=== PATIENT | female | born 1960 | race Caucasian/White ===

== ENCOUNTER 2021-09-17 08:33 | Inpatient (IN) | payer MEDICARE, MEDICAID ==
[~2021-09-17] VITALS: Ht 172.7 cm; Wt 70.7 kg
--- NOTE | 2021-09-17 09:06 | ED Abdominal Pain ---
General Chief Complaint: Abdominal/GI Problems Stated Complaint: CHEST, BACK, ABD PAIN Source of Information: Patient Exam Limitations: No Limitations (MARIAH GARICA MED STUDENT) History of Present Illness Date Seen by Provider: Sep 17, 2021 Time Seen by Provider: 08:48 Initial Comments Patient is a 61 year old white female who presents to the ED with multiple complaints consisting of chest, back and abdominal pain, sore throat, cough, fevers, and nausea/vomiting. Reports symptoms started 5 days ago with sore throat, runny nose, and cough. 2-3 days ago developed epigastric abdominal pain radiating straight through to the back and nausea/vomiting. Reports vomiting about 60 times in the last 2 days, nonbloody/nonbilious. Reports the abdominal pain is sharp and constant, worsens with movement and walking. Has been taking ibuprofen for the pain, last dose early this am. Reports black "aram" stools for a few days as well. Reports decreased oral intake last 2-3 days. Not covid vaccinated. Denies recent sick contacts. Is flu vaccinated she reports. Timing/Duration: 5-6 Days Severity/Quality: Moderate, Sharp Location: Epigastric Radiation: Back Modifying Factors: Improves With Coughing, Improves With Movement Associated Symptoms: Back Pain, Chest Pain, Fever/Chills, Fatigue, Heartburn, Nausea/Vomiting (MARIAH GARCIA MED STUDENT) Initial Comments 60yo with 5 days of multiple somatic complaints, most recently 2 days of persistent n/v (up to 60x). Black stool the last 2 days. Taking ibuprofen 800mg up to 3 times a day. States she hasnt taken any of her meds in the last 2 days due to n/v. Subjective f/c. no urinary complaints (but decreased amounts). No covid vaccination. slight sore throat (? due to vomiting). SLight cough (former 4ppd smoker) non productive. admits to a pint of whiskey a day 2-3 days a month. Medical history COPD, anxiety, depression, GERD; h/o ulcer. (SHANTANU BLUNT MD) Allergies and Home Medications Allergies Coded Allergies: Sulfa (Sulfonamide Antibiotics) (Verified Allergy, Unknown, 09/17/21) codeine (Verified Allergy, Unknown, 09/17/21) prednisone (Verified Allergy, Unknown, 09/17/21) tramadol (Verified Allergy, Unknown, 09/17/21) Patient Home Medication List Home Medication List Reviewed: Yes (SHANTANU BLUNT MD) Albuterol Sulfate (Proair Hfa) 1 Puff Puff, 2 PUFF IH Q4H PRN for SHORTNESS OF BREATH, (Reported) Entered as Reported by: RACHAEL SHARMA on 09/17/211538 Last Action: Reviewed Atorvastatin Calcium (Atorvastatin Calcium) 20 Mg Tablet, 20 MG PO DAILY, (Reported) Entered as Reported by: RACHAEL SHARMA on 09/17/211537 Last Action: Reviewed Azithromycin (Azithromycin) 250 Mg Tablet, 250 MG PO DAILY, (Reported) Entered as Reported by: RACHAEL SHARMA on 09/17/211537 Last Action: Reviewed Bismuth Subsalicylate (Pepto-Bismol) 262 Mg/15 Ml Oral.susp, 15 ML PO DAILY PRN for UPSET STOMACH, (Reported) Entered as Reported by: RACHAEL SHARMA on 09/17/211541 Last Action: Reviewed Buspirone HCl (Buspirone HCl) 10 Mg Tablet, 10 MG PO TID, (Reported) Entered as Reported by: RACHAEL SHARMA on 09/17/211537 Last Action: Reviewed Calcium Carbonate (Calcium) 500 Mg Tablet, 500 MG PO DAILY, (Reported) Entered as Reported by: RACHAEL SHARMA on 09/17/211541 Last Action: Reviewed Diphenhydramine HCl (Benadryl Allergy) 25 Mg Tablet, 25 MG PO DAILY PRN for ALLERGIES, (Reported) Entered as Reported by: RACHAEL SHARMA on 09/17/211543 Last Action: Reviewed Duloxetine HCl (Duloxetine HCl) 60 Mg Capsule.dr, 60 MG PO DAILY, (Reported) Entered as Reported by: RACHAEL SHARMA on 09/17/211537 Last Action: Reviewed Gabapentin (Neurontin) 300 Mg Capsule, 300 MG PO TID, (Reported) Entered as Reported by: RACHAEL SHARMA on 09/17/211537 Last Action: Reviewed Guaifenesin (Mucinex) 600 Mg Tab.er.12h, 600 MG PO BID PRN for CONGESTION, (Reported) Entered as Reported by: RACHAEL SHARMA on 09/17/211539 Last Action: Reviewed Ibuprofen (Ibuprofen) 800 Mg Tablet, 800 MG PO TID PRN for PAIN-MILD (1-4), (Reported) Entered as Reported by: RACHAEL SHARMA on 09/17/211537 Last Action: Reviewed Methocarbamol (Methocarbamol) 750 Mg Tablet, 1,500 MG PO BID, (Reported) Entered as Reported by: RACHAEL SHARMA on 09/17/211537 Last Action: Reviewed Multivitamin (Multi-Vitamin Daily) 1 Each Tablet, 1 EACH PO DAILY, (Reported) Entered as Reported by: RACHAEL SHARMA on 09/17/211542 Last Action: Reviewed Omeprazole (Omeprazole) 20 Mg Capsule.dr, 20 MG PO DAILY, (Reported) Entered as Reported by: RACHAEL SHARMA on 09/17/211537 Last Action: Reviewed Tiotropium Br/Olodaterol HCl (Stiolto Respimat Inhal [place]) 4 Gm Mist.inhal, 1 PUFF PO DAILY, (Reported) Entered as Reported by: RACHAEL SHARMA on 09/17/211537 Last Action: Reviewed Review of Systems Review of Systems Constitutional: chills, fever EENTM: No Blurred Vision, No Double Vision; Nose Congestion Respiratory: Cough (nonproductive) Cardiovascular: Chest Pain; Denies Edema, Denies Palpitations Gastrointestinal: Abdominal Pain, Nausea, Vomiting, Other (Black "aram" specks in stool) Genitourinary: No Symptoms Reported; Denies Burning, Denies Frequency Musculoskeletal: back pain; No joint pain, No joint swelling Skin: no symptoms reported; No change in color, No change in hair/nails Psychiatric/Neurological: Anxiety; Denies Headache, Denies Numbness, Denies Paresthesia Endocrine: No Symptoms Reported; Denies Excessive Sweating, Denies Flushing Hematologic/Lymphatic: No Symptoms Reported; Denies Easy Bleeding, Denies Easy Bruising (MARIAH GARCIA MED STUDENT) All Other Systems Reviewed Negative Unless Noted: Yes (MARIAH GARCIA STUDENT) Past Ptgiusq-Hgnlms-Fymaex Hx Patient Social History Tobacco Use?: Yes Tobacco type used: Cigarettes Smoking Status: Current Everyday Smoker Smokeless Tobacco Frequency: Never a User Use of E-Cig and/or Vaping dev: No Use of E-Cig and/or Vaping Kameron: Never a User Substance use?: No Alcohol Use?: Yes Alcohol type: Other (Whiskey) Alcohol Frequency: Several times a month Pt feels they are or have been: No (MARIAH GARCIA [employer] STUDENT) Immunizations Up To Date Tetanus Booster (TDap): Unknown Influenza Vaccine Up-to-Date: Yes; Up-to-Date First/Initial COVID19 Vaccinat: NA, Patient refusal (MARIAH GARCIA [employer] STUDENT) Seasonal Allergies Seasonal Allergies: No (MARIAH GARCIA [employer] TRAN) Past Medical History Surgeries: Yes Section Respiratory: Yes COPD Currently Using CPAP: No Currently Using BIPAP: No Cardiac: Yes High Cholesterol, Hypertension Neurological: Yes Headaches /Migraines Reproductive Disorders: No Genitourinary: No Gastrointestinal: Yes Gastroesophageal Reflux Musculoskeletal: No Endocrine: No HEENT: No Loss of Vision: Denies Hearing Impairment: Denies Cancer: No Psychosocial: Yes Anxiety, Depression Integumentary: No Blood Disorders: No Adverse Reaction/Blood Tranf: No (MARIAH GARCIA [employer] TRAN) Physical Exam Vital Signs Vital Signs - First Documented 09/17/21 08:39 Pulse 65 Resp 18 B/P (MAP) 136/86 (103) Pulse Ox 99 O2 Delivery Room Air (SHANTANU BLUNT MD) Vital Signs Capillary Refill : (MARIAH GARCIA STUDENT) Height/Weight/BMI Height: '" Weight: lbs. oz. kg; BMI Method: General Appearance: no apparent distress, other (Anxious and dishelved appearance) HEENT: PERRL/EOMI, TMs normal, pharynx normal Neck: non-tender, full range of motion, supple Respiratory: chest non-tender, no respiratory distress; No crackles, No rhonchi; wheezing (end expiratory bilaterally) Cardiovascular: normal peripheral pulses, regular rate, rhythm, no edema Peripheral Pulses: 2+ Radial Pulses (R), 2+ Radial Pulses (L) Gastrointestinal: normal bowel sounds, soft; No distended, No guarding; rebound (epigastric region), tenderness (tenderness periumbilical bilateally. More tender in epigastric region. Negative rovsings and mcburney. ) Rectal: deferred Extremities: normal range of motion, non-tender, no pedal edema Back: normal inspection, no vertebral tenderness Neurologic/Psychiatric: no motor/sensory deficits, alert, oriented x 3 Skin: normal color, warm/dry Lymphatic: no adenopathy (Head and Neck) (MARIAH GARCIA MED STUDENT) General Appearance: mild distress (retching on my exam) HEENT: other (dry mucous membranes) Neck: supple Respiratory: lungs clear, normal breath sounds, no respiratory distress Cardiovascular: regular rate, rhythm Gastrointestinal: soft, tenderness (tenderness periumbilical bilateally. More tender in epigastric region. Negative rovsings and mcburney. ) Pelvic: other (hemoccult positive on GRICEL - black stool in the vault. no external hemorrhoids) Neurologic/Psychiatric: alert, normal mood/affect, oriented x 3 Skin: normal color, warm/dry (SHANTANU BLUNT MD) Progress/Results/Core Measures Results/Orders Lab Results Laboratory Tests Test 09/17/21 09:07 09/17/21 09:50 Range/Units Influenza Type A (RT-PCR) Not Detected Not Detecte Influenza Type B (RT-PCR) Not Detected Not Detecte SARS-CoV-2 RNA (RT-PCR) Not Detected Not Detecte White Blood Count 7.0 4.3-11.0 10^3/uL Red Blood Count 3.95 3.80-5.11 10^6/uL Hemoglobin 12.9 11.5-16.0 g/dL Hematocrit 36 35-52 % Mean Corpuscular Volume 91 80-99 fL Mean Corpuscular Hemoglobin 33 25-34 pg Mean Corpuscular Hemoglobin Concent 36 32-36 g/dL Red Cell Distribution Width 13.1 10.0-14.5 % Platelet Count 186 130-400 10^3/uL Mean Platelet Volume 9.4 9.0-12.2 fL Immature Granulocyte % (Auto) 1 % Neutrophils (%) (Auto) 87 H 42-75 % Lymphocytes (%) (Auto) 5 L 12-44 % Monocytes (%) (Auto) 6 0-12 % Eosinophils (%) (Auto) 1 0-10 % Basophils (%) (Auto) 0 0-10 % Neutrophils # (Auto) 6.1 1.8-7.8 10^3/uL Lymphocytes # (Auto) 0.4 L 1.0-4.0 10^3/uL Monocytes # (Auto) 0.4 0.0-1.0 10^3/uL Eosinophils # (Auto) 0.1 0.0-0.3 10^3/uL Basophils # (Auto) 0.0 0.0-0.1 10^3/uL Immature Granulocyte # (Auto) 0.1 0.0-0.1 10^3/uL Neutrophils % (Manual) 83 % Lymphocytes % (Manual) 7 % Monocytes % (Manual) 3 % Eosinophils % (Manual) 4 % Band Neutrophils 3 % Blood Morphology Comment NORMAL Sodium Level 128 L 135-145 MMOL/L Potassium Level 2.8 L 3.6-5.0 MMOL/L Chloride Level 92 L 98-107 MMOL/L Carbon Dioxide Level 17 L 21-32 MMOL/L Anion Gap 19 H 5-14 MMOL/L Blood Urea Nitrogen 13 7-18 MG/DL Creatinine 0.67 0.60-1.30 MG/DL Estimat Glomerular Filtration Rate 101 BUN/Creatinine Ratio 19 Glucose Level 127 H 70-105 MG/DL Calcium Level 9.2 8.5-10.1 MG/DL Corrected Calcium 9.1 8.5-10.1 MG/DL Total Bilirubin 0.5 0.1-1.0 MG/DL Aspartate Amino Transf (AST/SGOT) 39 H 5-34 U/L Alanine Aminotransferase (ALT/SGPT) 35 0-55 U/L Alkaline Phosphatase 102 40-136 U/L Total Protein 7.3 6.4-8.2 GM/DL Albumin 4.1 3.2-4.5 GM/DL Lipase 1757 H 8-78 U/L Serum Alcohol < 10 <10 MG/DL (SHANTANU BLUNT MD) My Orders Orders - SHANTANU BLUNT MD Covid 19 Inhouse Test (09/17/21 08:59) Cbc With Automated Diff (09/17/21 08:59) Comprehensive Metabolic Panel (09/17/21 08:59) Ed Iv/Invasive Line Start (09/17/21 08:59) Influenza A And B By Pcr (09/17/21 08:59) Isolation Central Supply Req (09/17/21 08:59) Chest 1 View, Ap/Pa Only (09/17/21 08:59) Ns Iv 1000 Ml (Sodium Chloride 0.9%) (09/17/21 09:15) Pantoprazole Injection (Protonix Injecti (09/17/21 09:15) Ondansetron Injection (Zofran Injectio (09/17/21 09:15) Fentanyl Inj (Sublimaze Injection) (09/17/21 09:15) Lipase (09/17/21 09:14) Manual Differential (09/17/21 09:50) Us Gallbladder 32202 (09/17/21 10:53) Ns Iv 1000 Ml (Sodium Chloride 0.9%) (09/17/21 11:03) Potassium Cl 10meq/50ml Ivpb (Kcl 10 Meq (09/17/21 11:15) Fentanyl Inj (Sublimaze Injection) (09/17/21 11:30) Alcohol (09/17/21 11:33) Ct Abdomen/Pelvis W (09/17/21 11:33) Ed Admission (Communication) (09/17/21 11:34) (SHANTANU BLUNT MD) Medications Given in ED (SHANTANU BLUNT MD) Vital Signs/I&O 09/17/21 08:39 Pulse 65 Resp 18 B/P (MAP) 136/86 (103) Pulse Ox 99 O2 Delivery Room Air (SHANTANU BLUNT MD) Progress Progress Note #1: Time: 11:00 Progress Note Patient re-evaluated, still has epigastric pain, but rating it at a "2". Has had no more dry-heaving. Will give another liter of fluids and some potassium. Progress Note #2: Time: 11:36 Progress Note Discussed with Dr Alfaro - she will place que'd orders. Adding etoh and CT abd/pelvis. more pain meds. U/S RUQ shows diffusely fatty infiltrated liver with several benign appearing cysts. Diffusely dilated CBD at 0.6-0.7mm, no obvious stones. pancreatic head not well visualised. (SHANTANU BLUNT MD) Diagnostic Imaging Diagonstic Imaging: Xray Plain Films/CT/US/NM/MRI: chest Comments [facility]. [place], [place] NAME: DRISS GUTIERREZ Shaun MED REC#: [id number] PT STATUS: REG ER : 1960 PHYSICIAN: SHANTANU BLUNT MD ADMIT DATE: 09/17/21/ER Draft Date of Exam:09/17/21 CHEST 1 VIEW, AP/PA ONLY INDICATION: Chest pain with shortness of breath. FINDINGS: Portable chest shows lungs to be well aerated. There are no infiltrates. There are a few scattered calcified granuloma. The heart is not enlarged. There is no pulmonary edema or hilar adenopathy. No pneumothorax or pleural effusion. No bony abnormalities. IMPRESSION: Normal portable chest. Dictated on workstation # [id number] Dict: 09/17/21918 Trans: 09/17/21920 CV [id number] Interpreted by: KEMAR BUCK MD Electronically signed by: (SHANTANU BLUNT MD) Departure Communication (Admissions) Time/Spoke to Admitting Phy: 11:[address] Alfaro - will put in que'd orders (SHANTANU BLUNT MD) Impression Primary Impression: Acute pancreatitis Qualified Codes: K85.90 - Acute pancreatitis without necrosis or infection, unspecified Additional Impression: GI (gastrointestinal bleed) Qualified Codes: K92.1 - Melena Disposition: ADMITTED INPATIENT Condition: Stable Admissions Decision to Admit Reason: Admit from ER (General) Decision to Admit/Date: Sep 17, 2021 Time/Decision to Admit Time: 11:32 (SHANTANU BLUNT MD) Departure-Patient Inst. Referrals: NO,LOCAL PHYSICIAN (PCP/Family) Primary Care Physician Verification and Attestation of Medical Student E/M Service A medical student performed and documented this service in my presence. I reviewed and verified all information documented by the medical student and made modifications to such information, when appropriate. I personally performed the physical exam and medical decision making. Shantanu Blunt, Sep 18, 2021,11:56 (SHANTANU BLUNT MD) MARIAH GARCIA MED STUDENT Sep 17, 2021 09:06 SHANTANU BLUNT MD Sep 17, 2021 11:03
[2021-09-17] MEDS ORDERED: PANTOPRAZOLE 40 MG (PROTONIX) VIAL IV ONE (09:15)
[2021-09-17] MEDS ORDERED: NS IV 1000 ML 1,000 ML IV SCH (09:15)
[2021-09-17] MEDS ORDERED: ONDANSETRON 4 MG/2 ML (SDV) Z0FRAN IVP ONE (09:15)
[2021-09-17] MEDS ORDERED: fentaNYL INJ 100 MCG/2 ML AMP IVP ONE ×2 (09:15→11:30)
--- NOTE | 2021-09-17 09:21 | Diagnostic Imaging Report ---
INDICATION: Chest pain with shortness of breath. FINDINGS: Portable chest shows lungs to be well aerated. There are no infiltrates. There are a few scattered calcified granuloma. The heart is not enlarged. There is no pulmonary edema or hilar adenopathy. No pneumothorax or pleural effusion. No bony abnormalities. IMPRESSION: Normal portable chest. Dictated by: Dictated on workstation # [id number]
[2021-09-17 09:56] LABS: BASOPHILS % (AUTO) 0 % (0-10); EOSINOPHILS # (AUTO) 0.1 10^3/uL (0.0-0.3); EOSINOPHILS % (AUTO) 1 % (0-10); HEMATOCRIT 36 % (35-52); HEMOGLOBIN 12.9 g/dL (11.5-16.0); LYMPHOCYTES # (AUTO) 0.4 10^3/uL (1.0-4.0); LYMPHOCYTES % (AUTO) 5 % (12-44); MEAN CORPUSCULAR HEMOGLOBIN 33 pg (25-34); MEAN CORPUSCULAR HGB CONC 36 g/dL (32-36); MEAN CORPUSCULAR VOLUME 91 fL (80-99); MEAN PLATELET VOLUME 9.4 fL (9.0-12.2); MONOCYTES # (AUTO) 0.4 10^3/uL (0.0-1.0); MONOCYTES % (AUTO) 6 % (0-12); NEUTROPHILS # (AUTO) 6.1 10^3/uL (1.8-7.8); NEUTROPHILS % (AUTO) 87 % (42-75); PLATELET COUNT 186 10^3/uL (130-400)
[2021-09-17 10:07] LABS: ALBUMIN 4.1 GM/DL (3.2-4.5)
[2021-09-17 10:08] LABS: POTASSIUM 2.8 MMOL/L (3.6-5.0)
[2021-09-17 10:09] LABS: CALCIUM 9.2 MG/DL (8.5-10.1)
[2021-09-17 10:10] LABS: TOTAL PROTEIN 7.3 GM/DL (6.4-8.2)
[2021-09-17 10:12] LABS: BILIRUBIN,TOTAL 0.5 MG/DL (0.1-1.0)
[2021-09-17 10:13] LABS: CREATININE SERUM 0.67 MG/DL (0.60-1.30)
[2021-09-17 10:43] LABS: BAND NEUTROPHILS 3 %; EOSINOPHILS % (MANUAL) 4 %; LYMPHOCYTES % (MANUAL) 7 %; MONOCYTES % (MANUAL) 3 %; NEUTROPHILS % (MANUAL) 83 %; RBC MORPH NORMAL
[2021-09-17] MEDS: POTASSIUM CL 10MEQ/50ML IVPB 50 ML IV ONE ×2 (11:35→12:41)
[2021-09-17] MEDS: NS IV 1000 ML 1,000 ML IV STA ×2 (11:35→12:41)
--- NOTE | 2021-09-17 11:58 | Diagnostic Imaging Report ---
PROCEDURE: US Gallbladder. TECHNIQUE: Multiple real-time grayscale images were obtained over the right upper quadrant in various projections. INDICATION: Pancreatitis and right upper quadrant pain. Liver is normal in size 17.4 cm. Liver does show diffuse increased echogenicity consistent with hepatic steatosis. Left lobe liver cyst measures approximately 2.6 x 2.0 cm. Gallbladder is without stones or sludge. No wall thickening is identified. Extrahepatic bile duct is borderline at 7 mm. Pancreas does show some heterogeneity but no peripancreatic fluid collection is identified. Aorta is nonaneurysmal. IVC is patent. Right kidney is without evidence of calculi or hydronephrosis. There is no ascites. IMPRESSION: 1. Hepatic steatosis and hepatic cysts. 2. No evidence of cholelithiasis or acute cholecystitis. 3. Mild pancreatic heterogeneity but no peripancreatic fluid collection is seen. 4. Borderline extrahepatic bile duct measuring 7 mm. Dictated by: Dictated on workstation # [id number]
[2021-09-17] MEDS ORDERED: NS 100 ML (IVPB) BAG IV ONE (12:15)
[2021-09-17] MEDS ORDERED: HOLD METFORMIN - RECEIVED CONTRAST 20 ML VIAL IV SCH (12:15)
[2021-09-17] MEDS ORDERED: IOHEXOL 350 MG/ML 100 ML (OMNIPAQUE 350) VIAL IV ONE (12:15)
--- NOTE | 2021-09-17 12:22 | History & Physical-Hospitalist ---
History of Present Illness HPI/Chief Complaint Patient is 81-year-old female with past medical history of anxiety disorder, hyperlipidemia, alcohol abuse, tobacco abuse who presented to the emergency department due to abdominal pain. She states it started roughly 5 days ago. She has had severe nausea and vomiting as well. She has vomited 60 times over the past 5 days. She reports she has had a similar episode years ago and was told it was due to an ulcer. She does have a prescription for 800 mg ibuprofen at her bedside that was filled in July. She denies a history of pancreatitis. She does endorse a history of alcohol use. She is currently drinking 2 to 3 pints a month but was previously drinking 1/2 gallon a day. She is unsure when she cut back. Lipase was found to be 1757 in the emergency room and she was admitted for acute pancreatitis Source: patient Date Seen 09/17/21 Time Seen by a Provider: 12:17 Attending Physician PCP No,Local Physician Referring Physician Date of Admission Home Medications & Allergies Home Medications Reviewed patient Home Medication Reconciliation performed by pharmacy medication reconciliations weed science research technician and/or nursing. Patients Allergies have been reviewed. Allergies Allergies Coded Allergies Sulfa (Sulfonamide Antibiotics) (Verified Allergy, Unknown, 09/17/21) codeine (Verified Allergy, Unknown, 09/17/21) prednisone (Verified Allergy, Unknown, 09/17/21) tramadol (Verified Allergy, Unknown, 09/17/21) Past Agdvazc-Weargy-Dwwwok Hx Patient Social History Tobacco Use?: Yes Tobacco type used: Cigarettes Smoking Status: Current Everyday Smoker Smokeless Tobacco Frequency: Never a User Use of E-Cig and/or Vaping dev: No Use of E-Cig and/or Vaping Kameron: Never a User Substance use?: No Alcohol Use?: Yes Alcohol type: Other (Whiskey) Alcohol Frequency: Several times a month Pt feels they are or have been: No Immunizations Up To Date First/Initial COVID19 Vaccinat: NA, Patient refusal Seasonal Allergies Seasonal Allergies: No Current Status Advance Directives: No Primary Language: Kazakh Preferred Spoken Language: Kazakh Past Medical History Surgeries: Section COPD Currently Using CPAP: No Currently Using BIPAP: No High Cholesterol, Hypertension Headaches /Migraines Gastroesophageal Reflux, Ulcer Loss of Vision: Denies Hearing Impairment: Denies Anxiety, Depression Blood Disorders: No Adverse Reaction/Blood Tranf: No Family Medical History Reviewed Nursing Family Hx No Pertinent Family Hx Review of Systems Constitutional: No chills, No fever; malaise EENTM: no symptoms reported Respiratory: no symptoms reported Cardiovascular: no symptoms reported Gastrointestinal: see HPI Musculoskeletal: no symptoms reported Skin: no symptoms reported Psychiatric/Neurological: No Symptoms Reported Physical Exam Physical Exam Vital Signs Vital Signs - First Documented 09/17/21 08:39 Pulse 65 Resp 18 B/P (MAP) 136/86 (103) Pulse Ox 99 O2 Delivery Room Air Capillary Refill : Less Than 3 Seconds Height, Weight, BMI Height: '" Weight: lbs. oz. kg; 23.00 BMI Method: General Appearance: No Apparent Distress, Chronically ill, Thin HEENT: PERRL/EOMI, Moist Mucous Membranes Neck: Normal Inspection, Supple Respiratory: Lungs Clear, No Accessory Muscle Use, No Respiratory Distress Cardiovascular: Regular Rate, Rhythm, No JVD, No Murmur Gastrointestinal: Normal Bowel Sounds, Soft; No Guarding; Tenderness (mild, worse in the right upper and lower quadrants) Extremity: No Calf Tenderness, No Pedal Edema Neurologic/Psychiatric: Alert, Oriented x3 Results Results/Procedures Labs Laboratory Tests 09/17/21 09:50 Patient resulted labs reviewed. Imaging: Reviewed Imaging Report Imaging [facility] [place] [place] NAME: DRISS GUTIERREZ [facility] REC#: [id number] PT STATUS: REG ER : 1960 PHYSICIAN: SHANTANU MITCHELL MD ADMIT DATE: 09/17/21/ER Draft Date of Exam:09/17/21 CHEST 1 VIEW, AP/PA ONLY INDICATION: Chest pain with shortness of breath. FINDINGS: Portable chest shows lungs to be well aerated. There are no infiltrates. There are a few scattered calcified granuloma. The heart is not enlarged. There is no pulmonary edema or hilar adenopathy. No pneumothorax or pleural effusion. No bony abnormalities. IMPRESSION: Normal portable chest. Dictated on workstation # [id number] Dict: 09/17/21918 Trans: 09/17/21920 CV [id number] Interpreted by: KEMAR BUCK MD Electronically signed by: [facility] [place] [place] NAME: DRISS GUTIERREZ [facility] REC#: [id number] PT STATUS: REG ER : 1960 PHYSICIAN: SHANTANU MITCHELL MD ADMIT DATE: 09/17/21/ER Draft Date of Exam:09/17/21 US GALLBLADDER [id number] PROCEDURE: US Gallbladder. TECHNIQUE: Multiple real-time grayscale images were obtained over the right upper quadrant in various projections. INDICATION: Pancreatitis and right upper quadrant pain. Liver is normal in size 17.4 cm. Liver does show diffuse increased echogenicity consistent with hepatic steatosis. Left lobe liver cyst measures approximately 2.6 x 2.0 cm. Gallbladder is without stones or sludge. No wall thickening is identified. Extrahepatic bile duct is borderline at 7 mm. Pancreas does show some heterogeneity but no peripancreatic fluid collection is identified. Aorta is nonaneurysmal. IVC is patent. Right kidney is without evidence of calculi or hydronephrosis. There is no ascites. IMPRESSION: 1. Hepatic steatosis and hepatic cysts. 2. No evidence of cholelithiasis or acute cholecystitis. 3. Mild pancreatic heterogeneity but no peripancreatic fluid collection is seen. 4. Borderline extrahepatic bile duct measuring 7 mm. Dictated on workstation # [id number] Dict: 09/17/21 1151 Trans: 09/17/21 1157 CV [id number] Interpreted by: PJ CRUZ MD Electronically signed by: Assessment/Plan Admission Diagnosis Acute Pancreatitis Admission Status: Inpatient Order (span 2 midnights) Reason for Inpatient Admission: see below Assessment and Plan Acute Pancreatitis Alcohol abuse Hyponatremia Hypokalemia NPO IVF Fentanyl for pain CIWA Peptic ulcer disease FOBT + Continue PPI Surgery consulted, appreciate recs I anticipate drop in Hgb with rehydration tomorrow HLD Anxiety Hold home meds as is NPO COPD Tobacco abuse Down from 4ppd to 3cig every other day Continue home inhalers MAT protocol Diagnosis/Problems Diagnosis/Problems (1) HLD (hyperlipidemia) (2) COPD (chronic obstructive pulmonary disease) (3) Hypokalemia (4) Tobacco abuse (5) Alcohol abuse (6) Acute pancreatitis Status: Acute Qualifiers: Pancreatitis type: unspecified pancreatitis type Acute pancreatitis complication: unspecified Qualified Codes: K85.90 - Acute pancreatitis without necrosis or infection, unspecified (7) GI (gastrointestinal bleed) Status: Acute Qualifiers: GI bleed type/associated pathology: melena Qualified Codes: K92.1 - Melena RALPH ARIZMENDI MD Sep 17, 2021 12:22
--- NOTE | 2021-09-17 12:29 | Diagnostic Imaging Report ---
PROCEDURE: CT abdomen and pelvis with contrast. TECHNIQUE: Multiple contiguous axial images were obtained through the abdomen and pelvis after administration of intravenous contrast. Auto Exposure Controls were utilized during the CT exam to meet ALARA standards for radiation dose reduction. All CT scans use one or more of the following dose optimizing techniques: automated exposure control, MA and/or KvP adjustment based on patient size and exam type or iterative reconstruction. INDICATION: Abdominal pain and vomiting radiating to the back. No prior studies are available for comparison. The lung bases are clear of acute infiltrates. The dome of the right lobe of the liver contains a 12 mm circumscribed low-attenuation lesion suggestive of a cyst. There is a larger low-attenuation lesion left lobe measuring 21 mm, also likely a cyst. Diffuse low-attenuation throughout the liver is noted suggestive of hepatic steatosis. The gallbladder is unremarkable. There is no biliary ductal dilatation. Pancreatic head and body are unremarkable but there does appear to be some inflammatory stranding adjacent to the pancreatic tail, raising question of pancreatitis. Inflammation extends towards the upper portion of the spleen as well as the descending colon. No adrenal mass is identified. Kidneys are unremarkable apart from probable small nonobstructing calculi in the lower pole left kidney. There may be a nonobstructing calculus in the lower pole right kidney as well. Aorta is nonaneurysmal. Bowel loops are normal caliber. No obstruction. There is diverticulosis of the sigmoid but no evidence of acute diverticulitis. No free fluid or fluid collection is seen. The bladder and uterus are unremarkable. IMPRESSION: 1. Hepatic steatosis and hepatic cysts. 2. Inflammatory stranding in the left upper quadrant adjacent to the pancreatic tail, suspicious for acute pancreatitis. Correlation with lipase levels is recommended. 3. Uncomplicated diverticulosis. 4. No other significant abnormality is seen. Dictated by: Dictated on workstation # [id number]
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
[2021-09-17] MEDS: ONDANSETRON 4 MG/2 ML (SDV) Z0FRAN IV PRN (15:27)
[2021-09-17] MEDS: NS IV 1000 ML 1,000 ML IV SCH ×2 (15:27→22:12)
[2021-09-17 15:29] VITALS: BP 174/70
[2021-09-17] MEDS ORDERED: GABA300C PO (15:38)
[2021-09-17] MEDS ORDERED: IBUP-1780 PO (15:38)
[2021-09-17] MEDS ORDERED: ATOR20TA66 PO (15:38)
[2021-09-17] MEDS ORDERED: DULO60CA59 PO (15:38)
[2021-09-17] MEDS ORDERED: BUSP10TA95 PO (15:38)
[2021-09-17] MEDS ORDERED: OMEP20CA18 PO (15:38)
[2021-09-17] MEDS ORDERED: METH-732 PO (15:38)
[2021-09-17] MEDS ORDERED: TIOT4MIS3 PO (15:38)
[2021-09-17] MEDS ORDERED: AZIT250T12 PO (15:38)
[2021-09-17] MEDS ORDERED: RT-ALBUINH IH (15:39)
[2021-09-17] MEDS ORDERED: GUAI600T43 PO (15:40)
[2021-09-17] MEDS ORDERED: CALC-823 PO (15:42)
[2021-09-17] MEDS ORDERED: BISM262O27 PO (15:42)
[2021-09-17] MEDS ORDERED: MULT-974 PO (15:43)
[2021-09-17] MEDS: fentaNYL INJ 100 MCG/2 ML AMP IVP PRN ×3 (15:43→20:27)
[2021-09-17] MEDS ORDERED: DIPH25TA65 PO (15:44)
[2021-09-17 16:07] VITALS: BP 136/86
[2021-09-17] MEDS ORDERED: RT-ALBUTEROL/IPRATROPIUM 3 ML (DUONEB) VIAL INH PRN (17:00)
[2021-09-17 19:19] VITALS: BP 159/84
[2021-09-17] MEDS: RT-ALBUTEROL/IPRATROPIUM 3 ML (DUONEB) VIAL INH SCH (20:01)
[2021-09-17] MEDS: MELATONIN 3 MG TABLET PO PRN (22:12)
[2021-09-17 23:54] VITALS: BP 135/84
[2021-09-18] MEDS: ONDANSETRON 4 MG/2 ML (SDV) Z0FRAN IV PRN ×4 (00:09→20:37)
[2021-09-18] MEDS: fentaNYL INJ 100 MCG/2 ML AMP IVP PRN ×6 (02:38→20:37)
[2021-09-18] MEDS: RT-ALBUTEROL/IPRATROPIUM 3 ML (DUONEB) VIAL INH SCH ×4 (02:43→22:16)
[2021-09-18 03:51] VITALS: BP 133/82
[2021-09-18] MEDS: NS IV 1000 ML 1,000 ML IV SCH ×4 (05:20→22:42)
[2021-09-18 05:47] LABS: HEMATOCRIT 36 % (35-52); HEMOGLOBIN 12.9 g/dL (11.5-16.0); MEAN CORPUSCULAR HEMOGLOBIN 33 pg (25-34); MEAN CORPUSCULAR HGB CONC 36 g/dL (32-36); MEAN CORPUSCULAR VOLUME 91 fL (80-99); MEAN PLATELET VOLUME 9.5 fL (9.0-12.2); PLATELET COUNT 169 10^3/uL (130-400); WHITE BLOOD COUNT 8.3 10^3/uL (4.3-11.0)
[2021-09-18 06:11] LABS: ALBUMIN 3.9 GM/DL (3.2-4.5)
[2021-09-18 06:12] LABS: CALCIUM 8.9 MG/DL (8.5-10.1)
[2021-09-18 06:13] LABS: POTASSIUM 2.5 MMOL/L (3.6-5.0); TOTAL PROTEIN 7.2 GM/DL (6.4-8.2)
[2021-09-18 06:15] LABS: BILIRUBIN,TOTAL 0.6 MG/DL (0.1-1.0)
[2021-09-18 06:17] LABS: CREATININE SERUM 0.62 MG/DL (0.60-1.30)
--- NOTE | 2021-09-18 06:30 | Progress Note - Surgery ---
JONI ERICKSON 09/18/21 0629: Subjective Date Seen by a Provider: Sep 18, 2021 Time Seen by a Provider: 06:00 Subjective/Events-last exam Pt feeling better this morning. Epigastric pain that radiates to back is now 2/10. She felt alright walking to her window, but cannot eat ice chips without exacerbating the pain. Was nauseous overnight; said the nausea med made her more nauseous before improving it. She gagged up some phlegm, but said she did not vomit and saw no blood in it. She is passing gas, but has not had a bm in 3 days (she hasn't eaten much food in 6 days). She reports a little bit of chest pain that she believes radiates from her epigastric region. Review of Systems General: Chills, Fatigue HEENT: No Head Aches; Post Nasal Drip (phlegm in throat she gagged up) Pulmonary: Dyspnea (chronic), Cough Gastrointestinal: Nausea, Abdominal Pain, Other (gagging overnight); No: Vomiting, Diarrhea, Melena Genitourinary: No Dysuria; Frequency Musculoskeletal: neck pain (chronic); No: leg pain Neurological: No: Weakness, Change in speech Focused Exam Respiratory: No Accessory Muscle Use, No Respiratory Distress, Wheezing Cardiovascular: Regular Rate, Rhythm (was tachy overnight, said heart speeds up with pain), No Murmur Peripheral Pulses: 2+ Radial Pulses (R), 2+ Radial Pulses (L) Skin: normal color, warm/dry Objective Exam Vital Signs Date Time Temp Pulse Resp B/P (MAP) Pulse Ox O2 Delivery O2 Flow Rate FiO2 09/18/21 03:51 36.6 80 18 133/82 (99) 98 Nasal Cannula 4.00 09/18/21 02:46 Nasal Cannula 3.00 09/18/21 01:00 100 09/17/21 23:54 36.9 78 18 135/84 (101) 95 Room Air 09/17/21 20:01 Nasal Cannula 3.00 09/17/21 20:00 Room Air 09/17/21 19:19 37.2 72 20 159/84 (109) 96 Room Air 09/17/21 19:00 66 09/17/21 16:41 64 09/17/21 16:14 Room Air 09/17/21 16:07 36.6 65 99 21 09/17/21 15:29 36.6 72 20 174/70 (104) 99 Room Air 09/17/21 14:30 99 Room Air 09/17/21 14:10 66 22 127/84 99 Room Air 09/17/21 08:39 65 18 136/86 (103) 99 Room Air I & O 09/18/21 07:00 Intake Total 1050 ml Balance 1050 ml Capillary Refill : Less Than 3 Seconds General Appearance: No Apparent Distress, Chronically ill, Thin Respiratory: No Accessory Muscle Use, No Respiratory Distress, Wheezing Cardiovascular: Regular Rate, Rhythm (tachy overnight; said it speeds up with pain), No Murmur Peripheral Pulses: 2+ Radial Pulses (R), 2+ Radial Pulses (L) Gastrointestinal: distended; No guarding; tenderness (diffuse; especially left side tenderness today) Extremity: Normal Inspection, No Pedal Edema Neurologic/Psychiatric: Alert, Oriented x3, Normal Mood/Affect Skin: Normal Color, Warm/Dry Results Lab Laboratory Tests 09/17/21 09:07: Influenza Type A (RT-PCR) Not Detected, Influenza Type B (RT-PCR) Not Detected, SARS-CoV-2 RNA (RT-PCR) Not Detected 09/17/21 09:50: White Blood Count 7.0, Red Blood Count 3.95, Hemoglobin 12.9, Hematocrit 36, Mean Corpuscular Volume 91, Mean Corpuscular Hemoglobin 33, Mean Corpuscular Hemoglobin Concent 36, Red Cell Distribution Width 13.1, Platelet Count 186, Mean Platelet Volume 9.4, Immature Granulocyte % (Auto) 1, Neutrophils (%) (Auto) 87H, Lymphocytes (%) (Auto) 5L, Monocytes (%) (Auto) 6, Eosinophils (%) (Auto) 1, Basophils (%) (Auto) 0, Neutrophils # (Auto) 6.1, Lymphocytes # (Auto) 0.4L, Monocytes # (Auto) 0.4, Eosinophils # (Auto) 0.1, Basophils # (Auto) 0.0, Immature Granulocyte # (Auto) 0.1, Neutrophils % (Manual) 83, Lymphocytes % (Manual) 7, Monocytes % (Manual) 3, Eosinophils % (Manual) 4, Band Neutrophils 3, Blood Morphology Comment NORMAL, Sodium Level 128L, Potassium Level 2.8L, Chloride Level 92L, Carbon Dioxide Level 17L, Anion Gap 19H, Blood Urea Nitrogen 13, Creatinine 0.67, Estimat Glomerular Filtration Rate 101, BUN/Creatinine Ratio 19, Glucose Level 127H, Calcium Level 9.2, Corrected Calcium 9.1, Total Bilirubin 0.5, Aspartate Amino Transf (AST/SGOT) 39H, Alanine Aminotransferase (ALT/SGPT) 35, Alkaline Phosphatase 102, Total Protein 7.3, Albumin 4.1, Lipase 1757H, Serum Alcohol < 10 09/18/21 05:15: White Blood Count 8.3, Red Blood Count 3.92, Hemoglobin 12.9, Hematocrit 36, Mean Corpuscular Volume 91, Mean Corpuscular Hemoglobin 33, Mean Corpuscular Hemoglobin Concent 36, Red Cell Distribution Width 13.3, Platelet Count 169, Mean Platelet Volume 9.5, Sodium Level 129L, Potassium Level 2.5*L, Chloride Level 99, Carbon Dioxide Level 14L, Anion Gap 16H, Blood Urea Nitrogen 6L, Creatinine 0.62, Estimat Glomerular Filtration Rate 103, BUN/Creatinine Ratio 10, Glucose Level 108H, Calcium Level 8.9, Corrected Calcium 9.0, Total Bilirubin 0.6, Aspartate Amino Transf (AST/SGOT) 23, Alanine Aminotransferase (ALT/SGPT) 25, Alkaline Phosphatase 105, Total Protein 7.2, Albumin 3.9 Assessment/Plan Assessment/Plan Assessment/Plan Acute Pancreatitis - Lipase [address] showed stranding around tail of pancreas Nausea overnight, no vomiting since yesterday Melena- no bm in 3 days Umbilical hernia - confirmed on CT Hx bleeding ulcers Hx GERD Hypokalemia- 2.5 low NPO Bowel Rest IV Fluid- KCl today Pain management and anti-emetics as needed Monitor labs (alis Lipase), keep NPO until Lipase is coming down and abdominal pain is minimal Outpatient EGD and colonoscopy LUIS ANTONIO GUERRERO DO 09/18/21 1545: Subjective Time Seen by a Provider: 12:44 Subjective/Events-last exam Pt seen and examined, states she still has some burning abdominal pain and is "spitting stuff up". +flatus but no BM Review of Systems General: Chills, Fatigue HEENT: No Head Aches; Post Nasal Drip (phlegm in throat she gagged up) Pulmonary: Dyspnea (chronic), Cough Cardiovascular: No: Chest Pain Gastrointestinal: Nausea, Abdominal Pain, Other (gagging overnight); No: Vomiting Genitourinary: No Dysuria; Frequency Objective Exam General Appearance: No Apparent Distress, Chronically ill, Thin HEENT: Moist Mucous Membranes, Other (poor dentition) Respiratory: No Accessory Muscle Use, No Respiratory Distress, Wheezing Cardiovascular: Regular Rate, Rhythm (tachy overnight; said it speeds up with pain), No Murmur Gastrointestinal: soft, distended; No guarding; tenderness (diffuse; especially left side tenderness today) Assessment/Plan Assessment/Plan Assessment/Plan Acute Pancreatitis - Lipase 1757 yesterday and only down to [address] yesterday showed stranding around tail of pancreas Nausea overnight, no vomiting since yesterday Melena- no bm in 3 days Umbilical hernia - confirmed on CT Hx bleeding ulcers Hx GERD Hypokalemia- 2.5 low NPO Bowel Rest IV Fluid- KCl today and K+ supplementation Pain management and anti-emetics as needed Monitor labs (alis Lipase), keep NPO until Lipase is coming down and abdominal pain is minimal Outpatient EGD and colonoscopy Supervisory-Addendum Brief Verification & Attestation Participated in pt care: history, MDM, physical Personally performed: exam, history, MDM, supervision of care Care discussed with: Medical Student Procedures: n/a Verification and Attestation of Medical Student E/M Service A medical student performed and documented this service. I then reviewed and verified all information documented by the medical student and made modifications to such information, when appropriate. I personally performed a physical exam, medical decision making and then discussed any differences between the notes and made revisions as necessary to create one note. Luis Antonio Guerrero , 09/18/21 , 15:45 JONI ERICKSON Sep 18, 2021 06:29 LUIS ANTONIO GUERRERO DO Sep 18, 2021 15:45
[2021-09-18] MEDS ORDERED: POTASSIUM CL 10MEQ/50ML IVPB 50 ML IV SCH ×2 (07:00→07:45)
[2021-09-18 07:30] VITALS: BP 120/76
[2021-09-18] MEDS: POTASSIUM CL 10MEQ/50ML IVPB 50 ML IV SCH ×6 (08:13→11:38)
[2021-09-18] MEDS ORDERED: POTASSIUM PHOSPHATE INJ 15 MM in NS (IVPB) 250 ML IV ONE (10:15)
[2021-09-18] MEDS ORDERED: PROMETHAZINE INJ 25 MG/ML (PHENERGAN) AMP IVP PRN (10:30)
--- NOTE | 2021-09-18 10:48 | Progress Note - Hospitalist ---
Subjective HPI/CC On Admission Date Seen by Provider: Sep 18, 2021 Time Seen by Provider: 10:45 Patient is 81-year-old female with past medical history of anxiety disorder, hyperlipidemia, alcohol abuse, tobacco abuse who presented to the emergency department due to abdominal pain. She states it started roughly 5 days ago. She has had severe nausea and vomiting as well. She has vomited 60 times over the past 5 days. She reports she has had a similar episode years ago and was told it was due to an ulcer. She does have a prescription for 800 mg ibuprofen at her bedside that was filled in July. She denies a history of pancreatitis. She does endorse a history of alcohol use. She is currently drinking 2 to 3 pints a month but was previously drinking 1/2 gallon a day. She is unsure when she cut back. Lipase was found to be 1757 in the emergency room and she was admitted for acute pancreatitis Subjective/Events-last exam Pt reports doing ok today but still having pain. Ice chips have made it worse. Discussed plan to continue strict NPO status due to continued pain and she expresses understanding. Symptoms currently controlled with pain regimen as ordered. Objective Exam Vital Signs Vital Signs Date Time Temp Pulse Resp B/P (MAP) Pulse Ox O2 Delivery O2 Flow Rate FiO2 09/18/21 09:57 97 Nasal Cannula 3.00 09/18/21 07:30 37.3 88 18 120/76 (91) 09/17/21 16:07 21 Capillary Refill : Less Than 3 Seconds General Appearance: No Apparent Distress, Chronically ill, Thin Respiratory: Lungs Clear, No Accessory Muscle Use Cardiovascular: Regular Rate, Rhythm, No Murmur Gastrointestinal: Soft, Abnormal Bowel Sounds (quiet though present), Distended (mild) Neurologic/Psychiatric: Alert, Oriented x3 Results/Procedures Lab Laboratory Tests 09/18/21 05:15 Patient resulted labs reviewed. Imaging: Reviewed Imaging Report Assessment/Plan Assessment and Plan Assess & Plan/Chief Complaint Acute Pancreatitis Alcohol abuse Hyponatremia Hypokalemia NPO to continue until pain controlled IVF, if not able to PO after the weekend consider TPN as would be 4-5 days NPO at than point Fentanyl for pain Zofran for nausea CIWA Peptic ulcer disease FOBT + Continue PPI Surgery consulted, appreciate recs Hgb surprisingly steady despite rehydration, trend HLD Anxiety Hold home meds as is NPO COPD Tobacco abuse Down from 4ppd to 3cig every other day Continue home inhalers MAT protocol Requests nicotine patch Diagnosis/Problems Diagnosis/Problems (1) HLD (hyperlipidemia) (2) COPD (chronic obstructive pulmonary disease) (3) Hypokalemia (4) Tobacco abuse (5) Alcohol abuse (6) Acute pancreatitis Status: Acute Qualifiers: Pancreatitis type: unspecified pancreatitis type Acute pancreatitis complication: unspecified Qualified Codes: K85.90 - Acute pancreatitis without necrosis or infection, unspecified (7) GI (gastrointestinal bleed) Status: Acute Qualifiers: GI bleed type/associated pathology: melena Qualified Codes: K92.1 - Melena RALPH ARIZMENDI MD Sep 18, 2021 10:48
[2021-09-18] MEDS ORDERED: NICOTINE 7 MG (NICODERM) PATCH TD NR (11:00)
[2021-09-18 11:48] VITALS: BP 129/63
[2021-09-18 16:20] VITALS: BP 151/67
[2021-09-18 16:34] LABS: POTASSIUM 2.8 MMOL/L (3.6-5.0)
[2021-09-18 16:35] LABS: CALCIUM 9.3 MG/DL (8.5-10.1)
[2021-09-18 16:39] LABS: PHOSPHORUS 1.4 MG/DL (2.3-4.7)
[2021-09-18 16:40] LABS: CREATININE SERUM 0.69 MG/DL (0.60-1.30)
[2021-09-18 19:44] VITALS: BP 131/81
[2021-09-19] VITALS: BP 132/69
[2021-09-19] MEDS: RT-ALBUTEROL/IPRATROPIUM 3 ML (DUONEB) VIAL INH SCH ×4 (02:35→21:53)
[2021-09-19] MEDS: fentaNYL INJ 100 MCG/2 ML AMP IVP PRN ×6 (02:55→22:49)
[2021-09-19] MEDS: ONDANSETRON 4 MG/2 ML (SDV) Z0FRAN IV PRN ×3 (02:55→18:33)
[2021-09-19 03:54] VITALS: BP 117/58
[2021-09-19 05:52] LABS: HEMATOCRIT 34 % (35-52); MEAN CORPUSCULAR HEMOGLOBIN 33 pg (25-34); MEAN CORPUSCULAR HGB CONC 35 g/dL (32-36); MEAN CORPUSCULAR VOLUME 94 fL (80-99); MEAN PLATELET VOLUME 9.6 fL (9.0-12.2); PLATELET COUNT 141 10^3/uL (130-400); WHITE BLOOD COUNT 7.2 10^3/uL (4.3-11.0)
[2021-09-19 06:01] LABS: ALBUMIN 3.5 GM/DL (3.2-4.5); POTASSIUM 2.7 MMOL/L (3.6-5.0)
[2021-09-19 06:03] LABS: CALCIUM 9.1 MG/DL (8.5-10.1)
[2021-09-19 06:04] LABS: TOTAL PROTEIN 6.5 GM/DL (6.4-8.2)
[2021-09-19 06:06] LABS: BILIRUBIN,TOTAL 0.4 MG/DL (0.1-1.0)
[2021-09-19 06:07] LABS: PHOSPHORUS 1.8 MG/DL (2.3-4.7)
[2021-09-19 06:08] LABS: CREATININE SERUM 0.6 MG/DL (0.60-1.30)
[2021-09-19 06:11] LABS: MAGNESIUM 1.8 MG/DL (1.6-2.4)
[2021-09-19] MEDS: MAGNESIUM 1 GM/100 ML IVPB 100 ML IV SCH ×2 (06:12→11:41)
[2021-09-19] MEDS: KCL 20 MEQ TAB (K-DUR) PO SCH (06:13)
[2021-09-19] MEDS: POTASSIUM CL 10MEQ/50ML IVPB 50 ML IV SCH ×4 (06:17→09:28)
[2021-09-19] MEDS: NS IV 1000 ML 1,000 ML IV SCH ×2 (06:34→20:06)
--- NOTE | 2021-09-19 07:39 | Progress Note - Surgery ---
NAVI TRIMBLE 09/19/21 0739: Subjective Date Seen by a Provider: Sep 19, 2021 Time Seen by a Provider: 06:59 Subjective/Events-last exam Pt reports that this morning she is having pain in both upper quadrants that is worse in the epigastric region. States that the pain does radiate to her back. E ndorses nausea this morning, no vomiting. She does have a cough and SOB but she states that this is chronic due to her COPD. Has not had any BMs but reports that she is having episodes of flatus. Only allowed to eat ice chips which she reports that she is taking without any issue. Review of Systems General: No Chills, No Night Sweats HEENT: No Head Aches, No Visual Changes Pulmonary: Dyspnea, Cough Cardiovascular: No: Chest Pain, Palpitations Gastrointestinal: Nausea, Abdominal Pain, Constipation; No: Vomiting Musculoskeletal: No: shoulder pain, back pain Neurological: No: Weakness, Numbness Objective Exam Vital Signs Date Time Temp Pulse Resp B/P (MAP) Pulse Ox O2 Delivery O2 Flow Rate FiO2 09/19/21 07:00 78 09/19/21 03:54 37.1 90 17 117/58 (77) 94 Room Air 09/19/21 02:34 99 Room Air 09/19/21 01:00 90 09/19/21 00:00 37.4 83 18 132/69 (90) 96 Room Air 09/18/21 22:16 95 Room Air 09/18/21 20:00 Room Air 09/18/21 19:44 37.4 95 20 131/81 (98) 98 Room Air 09/18/21 19:00 83 09/18/21 16:20 37.2 78 18 151/67 (95) 98 Room Air 09/18/21 15:06 96 Room Air 09/18/21 13:00 90 09/18/21 11:48 36.1 86 18 129/63 (85) 96 Room Air 09/18/21 09:57 97 Nasal Cannula 3.00 09/18/21 08:37 Room Air I & O 09/19/21 07:00 Intake Total 1805 ml Balance 1805 ml Capillary Refill : Less Than 3 Seconds General Appearance: No Apparent Distress, Chronically ill, Thin HEENT: PERRL/EOMI; No Photophobia; Other (poor dentition) Neck: Normal Inspection, Non Tender, Supple Respiratory: No Accessory Muscle Use, No Respiratory Distress, Wheezing Cardiovascular: Regular Rate, Rhythm, No Murmur, Normal Peripheral Pulses Peripheral Pulses: 2+ Radial Pulses (R), 2+ Radial Pulses (L) Gastrointestinal: soft; No guarding; tenderness (diffuse; worse in epigastric region and RLQ) Extremity: Normal Inspection, No Pedal Edema Neurologic/Psychiatric: Alert, Oriented x3 Skin: Normal Color, Warm/Dry Results Lab Laboratory Tests 09/18/21 10:07: Lipase 1650H 09/18/21 16:15: Sodium Level 131L, Potassium Level 2.8L, Chloride Level 100, Carbon Dioxide Level 15L, Anion Gap 16H, Blood Urea Nitrogen 6L, Creatinine 0.69, Estimat Glomerular Filtration Rate 100, BUN/Creatinine Ratio 9, Glucose Level 100, Calcium Level 9.3, Phosphorus Level 1.4L 09/19/21 05:37: Lipase 425H, Sodium Level 132L, Potassium Level 2.7L, Chloride Level 104, Carbon Dioxide Level 14L, Anion Gap 14, Blood Urea Nitrogen 6L, Creatinine 0.60, Estimat Glomerular Filtration Rate 103, BUN/Creatinine Ratio 10, Glucose Level 96, Calcium Level 9.1, Phosphorus Level 1.8L, White Blood Count 7.2, Red Blood Count 3.67L, Hemoglobin 12.0, Hematocrit 34L, Mean Corpuscular Volume 94, Mean Corpuscular Hemoglobin 33, Mean Corpuscular Hemoglobin Concent 35, Red Cell Distribution Width 13.7, Platelet Count 141, Mean Platelet Volume 9.6, Corrected Calcium 9.5, Magnesium Level 1.8, Total Bilirubin 0.4, Aspartate Amino Transf (AST/SGOT) 13, Alanine Aminotransferase (ALT/SGPT) 16, Alkaline Phosphatase 96, Total Protein 6.5, Albumin 3.5 Assessment/Plan Assessment/Plan Assessment/Plan Acute Pancreatitis Nausea Melena- no bm in 3 days Umbilical hernia - confirmed on CT Hx bleeding ulcers Hx GERD Hypokalemia Lipase 1650 yesterday and only down to [address] 09/17 showed stranding around tail of pancreas NPO, Bowel Rest, Monitor labs (alis Lipase), keep NPO until Lipase is coming down and abdominal pain is minimal Continue IV Fluid K+ supplementation due to hypokalemia Pain management and anti-emetics as needed Outpatient EGD and colonoscopy MARGARITO CARSON DO 09/19/216: Subjective Subjective/Events-last exam Patient still having pain more in the upper portion of her abdomen. Patient having nausea as well. Currently taking ice chips but still reluctant due to pain. Patient is hungry though she states wanting a cheeseburger with sanderson but knows this would likely hurt her really bad. Patient denies any fever sweats chills shortness of breath or chest pain. Objective Exam General Appearance: No Apparent Distress, Chronically ill HEENT: PERRL/EOMI, Normal ENT Inspection, Other (poor dentition) Neck: Normal Inspection, Non Tender, Supple Respiratory: Chest Non Tender, No Accessory Muscle Use, No Respiratory Distress Cardiovascular: Regular Rate, Rhythm, No JVD Gastrointestinal: soft, tenderness (Bilateral upper quadrants) Extremity: Normal Inspection, Non Tender Neurologic/Psychiatric: Alert, Oriented x3, Abnormal Cerebellar Tests Skin: Normal Color, Warm/Dry Lymphatic: No Adenopathy Assessment/Plan Assessment/Plan Assessment/Plan Acute Pancreatitis no gallstones Nausea Melena- no bm in 3 days Umbilical hernia - confirmed on CT Hx bleeding ulcers Hx GERD Hypokalemia Hyponatremia Lipase 1650 yesterday and only down to [address] 09/17 showed stranding around tail of pancreas NPO, Bowel Rest, Monitor labs (alis Lipase), keep NPO until Lipase is coming down and abdominal pain is minimal Continue IV Fluid electrolytes replace per protocol Pain management and anti-emetics as needed Outpatient EGD and colonoscopy Supervisory-Addendum Brief Verification & Attestation Participated in pt care: history, MDM, physical Personally performed: exam, history, MDM, supervision of care Care discussed with: Medical Student Procedures: n/a Results interpretation: Verified all documentation Verification and Attestation of Medical Student E/M Service A medical student performed and documented this service in my presence. I reviewed and verified all information documented by the medical student and made modifications to such information, when appropriate. I personally performed the physical exam and medical decision making. Margarito Carson, Sep 19, 2021,21:45 NAVI TRIMBLE Sep 19, 2021 07:39 MARGARITO CARSON DO Sep 19, 2021 21:46
[2021-09-19 08:00] VITALS: BP 138/68
[2021-09-19] MEDS: NICOTINE 7 MG (NICODERM) PATCH TD SCH (08:43)
[2021-09-19] MEDS: NICOTINE PATCH REMOVAL TP SCH (08:45)
--- NOTE | 2021-09-19 10:41 | Progress Note - Hospitalist ---
Subjective HPI/CC On Admission Date Seen by Provider: Sep 19, 2021 Time Seen by Provider: 10:39 Patient is 81-year-old female with past medical history of anxiety disorder, hyperlipidemia, alcohol abuse, tobacco abuse who presented to the emergency department due to abdominal pain. She states it started roughly 5 days ago. She has had severe nausea and vomiting as well. She has vomited 60 times over the past 5 days. She reports she has had a similar episode years ago and was told it was due to an ulcer. She does have a prescription for 800 mg ibuprofen at her bedside that was filled in July. She denies a history of pancreatitis. She does endorse a history of alcohol use. She is currently drinking 2 to 3 pints a month but was previously drinking 1/2 gallon a day. She is unsure when she cut back. Lipase was found to be 1757 in the emergency room and she was admitted for acute pancreatitis Subjective/Events-last exam Pt reports persistent pain and nausea. Would like to eat but still getting pain with ice chips. Objective Exam Vital Signs Vital Signs Date Time Temp Pulse Resp B/P (MAP) Pulse Ox O2 Delivery O2 Flow Rate FiO2 09/19/21 10:06 97 Room Air 09/19/21 08:00 37.5 76 20 138/68 (91) 09/18/21 09:57 3.00 09/17/21 16:07 21 Capillary Refill : Less Than 3 Seconds General Appearance: No Apparent Distress, Chronically ill, Thin Respiratory: Lungs Clear, No Respiratory Distress Cardiovascular: Regular Rate, Rhythm, No Murmur Gastrointestinal: Non Tender, Soft, Distended (mild), Tenderness (mild) Extremity: No Calf Tenderness, No Pedal Edema Neurologic/Psychiatric: Alert, Oriented x3 Results/Procedures Lab Laboratory Tests 09/18/21 16:15 09/19/21 05:37 Patient resulted labs reviewed. Imaging: Reviewed Imaging Report Assessment/Plan Assessment and Plan Assess & Plan/Chief Complaint Acute Pancreatitis Alcohol abuse Hyponatremia Hypokalemia NPO to continue until pain controlled, ice chips only IVF, if not able to PO after the weekend consider TPN as would be 4-5 days NPO at than point Fentanyl for pain Zofran for nausea CIWA Replace electrolytes per protocol Peptic ulcer disease FOBT + Continue PPI Surgery consulted, appreciate recs Hgb surprisingly steady despite rehydration, trend HLD Anxiety Hold home meds as is NPO COPD Tobacco abuse Down from 4ppd to 3cig every other day Continue home inhalers MAT protocol Nicotine patch Diagnosis/Problems Diagnosis/Problems (1) HLD (hyperlipidemia) (2) COPD (chronic obstructive pulmonary disease) (3) Hypokalemia (4) Tobacco abuse (5) Alcohol abuse (6) Acute pancreatitis Status: Acute Qualifiers: Pancreatitis type: unspecified pancreatitis type Acute pancreatitis complication: unspecified Qualified Codes: K85.90 - Acute pancreatitis without necrosis or infection, unspecified (7) GI (gastrointestinal bleed) Status: Acute Qualifiers: GI bleed type/associated pathology: melena Qualified Codes: K92.1 - RALPH Kamara MD Sep 19, 2021 10:41
[2021-09-19] MEDS ORDERED: POTASSIUM CL 10MEQ/50ML IVPB 50 ML IV ONE (11:30)
[2021-09-19 12:00] VITALS: BP 129/77
[2021-09-19 16:00] VITALS: BP 138/82
[2021-09-19] MEDS ORDERED: ACETAMINOPHEN 325 MG TABLET PO PRN (19:00)
[2021-09-19 19:33] VITALS: BP 128/80
[2021-09-20] VITALS (7 sets, daily range): BP systolic 129–154; BP diastolic 61–86
[2021-09-20] MEDS: fentaNYL INJ 100 MCG/2 ML AMP IVP PRN ×4 (00:55→13:03)
[2021-09-20] MEDS: MELATONIN 3 MG TABLET PO PRN ×2 (00:55→21:18)
[2021-09-20 06:04] LABS: HEMATOCRIT 33 % (35-52); HEMOGLOBIN 11.4 g/dL (11.5-16.0); MEAN CORPUSCULAR HEMOGLOBIN 33 pg (25-34); MEAN CORPUSCULAR HGB CONC 35 g/dL (32-36); MEAN CORPUSCULAR VOLUME 94 fL (80-99); MEAN PLATELET VOLUME 9.7 fL (9.0-12.2); PLATELET COUNT 163 10^3/uL (130-400); WHITE BLOOD COUNT 5.7 10^3/uL (4.3-11.0)
[2021-09-20 06:19] LABS: ALBUMIN 3.4 GM/DL (3.2-4.5)
[2021-09-20 06:20] LABS: POTASSIUM 2.6 MMOL/L (3.6-5.0)
[2021-09-20 06:21] LABS: CALCIUM 8.8 MG/DL (8.5-10.1)
[2021-09-20 06:22] LABS: TOTAL PROTEIN 6.3 GM/DL (6.4-8.2)
[2021-09-20 06:24] LABS: BILIRUBIN,TOTAL 0.5 MG/DL (0.1-1.0)
[2021-09-20 06:25] LABS: PHOSPHORUS 1.5 MG/DL (2.3-4.7)
[2021-09-20 06:26] LABS: CREATININE SERUM 0.56 MG/DL (0.60-1.30)
[2021-09-20] MEDS: KCL 20 MEQ TAB (K-DUR) PO SCH (06:28)
[2021-09-20 06:29] LABS: MAGNESIUM 2.1 MG/DL (1.6-2.4)
[2021-09-20] MEDS ORDERED: MAGNESIUM 1 GM/100 ML IVPB 100 ML IV SCH (06:30)
[2021-09-20] MEDS: NS IV 1000 ML 1,000 ML IV SCH ×2 (06:41→13:51)
[2021-09-20] MEDS: POTASSIUM CL 10MEQ/50ML IVPB 50 ML IV SCH ×6 (06:42→09:42)
[2021-09-20] MEDS: MAGNESIUM 1 GM/100 ML IVPB 100 ML IV SCH (06:42)
[2021-09-20] MEDS: RT-ALBUTEROL/IPRATROPIUM 3 ML (DUONEB) VIAL INH SCH ×2 (07:26→23:16)
[2021-09-20] MEDS: NICOTINE 7 MG (NICODERM) PATCH TD SCH (08:10)
[2021-09-20] MEDS: PANTOPRAZOLE 40 MG (PROTONIX) VIAL IV SCH (08:11)
--- NOTE | 2021-09-20 08:28 | Progress Note - Surgery ---
NAVI TRIMBLE 09/20/21 0827: Subjective Date Seen by a Provider: Sep 20, 2021 Time Seen by a Provider: 07:12 Subjective/Events-last exam Pt reports that she was having sharp chest pains last night that radiated to her neck. EKG was done last night that showed sinus rhythm w/ left axis deviation. States that the chest pain has improved. Says that her abdominal pain has improved from yesterday. Taking ice chips without any difficulty. Denies any nausea or vomiting. Chronic cough and SOB present. Review of Systems General: No Chills, No Night Sweats HEENT: No Head Aches, No Visual Changes Pulmonary: Dyspnea, Cough Cardiovascular: Chest Pain; No: Palpitations Gastrointestinal: Abdominal Pain; No: Nausea, Vomiting Musculoskeletal: No: neck pain, back pain Neurological: No: Weakness, Numbness Objective Exam Vital Signs Date Time Temp Pulse Resp B/P (MAP) Pulse Ox O2 Delivery O2 Flow Rate FiO2 09/20/21 08:00 96 Room Air 3.00 09/20/21 07:30 96 Room Air 09/20/21 07:00 76 09/20/21 04:00 37.0 74 17 131/61 (84) 98 Nasal Cannula 3.00 09/20/21 01:37 37.5 76 98 21 09/20/21 00:42 78 09/20/21 00:26 37.4 73 18 132/70 (90) 99 Room Air 09/19/21 21:54 96 Room Air 09/19/21 20:10 Room Air 09/19/21 19:33 37.3 95 18 128/80 (96) 97 Room Air 09/19/21 19:00 85 09/19/21 16:00 37.2 72 18 138/82 (100) 97 Room Air 09/19/21 15:20 97 Room Air 09/19/21 13:00 82 09/19/21 12:00 37.4 82 20 129/77 (94) 98 Room Air 09/19/21 10:06 97 Room Air I & O 09/20/21 07:00 Intake Total 575 ml Balance 575 ml Capillary Refill : Less Than 3 Seconds General Appearance: No Apparent Distress, Chronically ill HEENT: PERRL/EOMI; No Photophobia; Other (poor dentition) Neck: Normal Inspection, Non Tender, Supple Respiratory: Chest Non Tender, No Accessory Muscle Use, No Respiratory Distress Cardiovascular: Regular Rate, Rhythm, No JVD, Normal Peripheral Pulses Peripheral Pulses: 2+ Radial Pulses (R), 2+ Radial Pulses (L) Gastrointestinal: normal bowel sounds, non tender, soft Extremity: Normal Inspection, Non Tender, No Calf Tenderness Neurologic/Psychiatric: Alert, Oriented x3 Skin: Normal Color, Warm/Dry Lymphatic: No Adenopathy Results Lab Laboratory Tests 09/19/21 23:40: Troponin I < 0.028 09/20/21 05:26: White Blood Count 5.7, Red Blood Count 3.48L, Hemoglobin 11.4L, Hematocrit 33L, Mean Corpuscular Volume 94, Mean Corpuscular Hemoglobin 33, Mean Corpuscular Hemoglobin Concent 35, Red Cell Distribution Width 13.9, Platelet Count 163, Mean Platelet Volume 9.7, Sodium Level 132L, Potassium Level 2.6L, Chloride Level 107, Carbon Dioxide Level 14L, Anion Gap 11, Blood Urea Nitrogen 4L, Creatinine 0.56L, Estimat Glomerular Filtration Rate 105, BUN/Creatinine Ratio 7, Glucose Level 106H, Calcium Level 8.8, Corrected Calcium 9.3, Phosphorus Level 1.5L, Magnesium Level 2.1, Total Bilirubin 0.5, Aspartate Amino Transf (AST/SGOT) 9, Alanine Aminotransferase (ALT/SGPT) 13, Alkaline Phosphatase 91, Total Protein 6.3L, Albumin 3.4 Assessment/Plan Assessment/Plan Assessment/Plan Acute Pancreatitis, no gallstones Umbilical hernia - confirmed on CT Hx bleeding ulcers Hx GERD Hypokalemia Hyponatremia Lipase yesterday 425. CT 09/17 showed stranding around tail of pancreas Currently NPO, May consider starting clear liquids today due to abdominal pain being minimal Continue IV Fluid electrolytes replace per protocol Pain management and anti-emetics as needed Outpatient EGD and colonoscopy MARGARITO CARSON DO 09/20/21 1619: Subjective Subjective/Events-last exam Patient is only been using ice chips. She is feeling better today. Not really having any abdominal pain. She is wanting to do more clears. Patient denies any nausea vomiting fever sweats chills shortness of breath or chest pain at this time. Objective Exam General Appearance: No Apparent Distress, Chronically ill HEENT: PERRL/EOMI Neck: Normal Inspection, Non Tender Respiratory: Chest Non Tender, No Accessory Muscle Use, No Respiratory Distress Cardiovascular: Regular Rate, Rhythm, No JVD Gastrointestinal: non tender, soft Extremity: Normal Inspection, Non Tender Neurologic/Psychiatric: Alert, Oriented x3 Skin: Normal Color, Warm/Dry Lymphatic: No Adenopathy Assessment/Plan Assessment/Plan Assessment/Plan Acute Pancreatitis, no gallstones Umbilical hernia - confirmed on CT Hx bleeding ulcers Hx GERD Hypokalemia Hyponatremia Lipase yesterday 425. CT 09/17 showed stranding around tail of pancreas clear liquids today Continue IV Fluid electrolytes replace per protocol Pain management and anti-emetics as needed Outpatient EGD and colonoscopy Supervisory-Addendum Brief Verification & Attestation Participated in pt care: history, MDM, physical Personally performed: exam, history, MDM, supervision of care Care discussed with: Medical Student Procedures: n/a Results interpretation: Verified all documentation Verification and Attestation of Medical Student E/M Service A medical student performed and documented this service in my presence. I reviewed and verified all information documented by the medical student and made modifications to such information, when appropriate. I personally performed the physical exam and medical decision making. Margarito Carsno, Sep 20, 2021,16:18 NAVI TRIMBLE Sep 20, 2021 08:27 MARGARITO CARSON DO Sep 20, 2021 16:19
[2021-09-20] MEDS ORDERED: POTASSIUM PHOSPHATE INJ 15 MM in NS (IVPB) 250 ML IV NR (10:30)
[2021-09-20] MEDS: NICOTINE PATCH REMOVAL TP SCH (10:35)
--- NOTE | 2021-09-20 12:15 | Progress Note - Hospitalist ---
Subjective HPI/CC On Admission Date Seen by Provider: Sep 20, 2021 Time Seen by Provider: 12:12 Patient is 81-year-old female with past medical history of anxiety disorder, hyperlipidemia, alcohol abuse, tobacco abuse who presented to the emergency department due to abdominal pain. She states it started roughly 5 days ago. She has had severe nausea and vomiting as well. She has vomited 60 times over the past 5 days. She reports she has had a similar episode years ago and was told it was due to an ulcer. She does have a prescription for 800 mg ibuprofen at her bedside that was filled in July. She denies a history of pancreatitis. She does endorse a history of alcohol use. She is currently drinking 2 to 3 pints a month but was previously drinking 1/2 gallon a day. She is unsure when she cut back. Lipase was found to be 1757 in the emergency room and she was admitted for acute pancreatitis Subjective/Events-last exam Patient reports pain much improved. Rates it at a 2 or 3. Is up walking around her room and actually making her bed. Would like to advance diet. Objective Exam Vital Signs Vital Signs Date Time Temp Pulse Resp B/P (MAP) Pulse Ox O2 Delivery O2 Flow Rate FiO2 09/20/21 08:00 37.0 82 18 129/61 (83) 98 Room Air 09/20/21 08:00 3.00 09/20/21 01:37 21 Capillary Refill : Less Than 3 Seconds General Appearance: No Apparent Distress, Thin Respiratory: Lungs Clear, No Respiratory Distress Cardiovascular: Regular Rate, Rhythm, No Murmur Gastrointestinal: Normal Bowel Sounds, Non Tender, Soft Neurologic/Psychiatric: Alert, Oriented x3 Results/Procedures Lab Laboratory Tests 09/20/21 05:26 Patient resulted labs reviewed. Imaging: Reviewed Imaging Report Assessment/Plan Assessment and Plan Assess & Plan/Chief Complaint Acute Pancreatitis Alcohol abuse Hyponatremia Hypokalemia Advance to CLD today IVF but will decrease rate Fentanyl for pain Zofran for nausea CIWA Replace electrolytes per protocol Peptic ulcer disease FOBT + Continue PPI Surgery consulted, appreciate recs Hgb surprisingly steady despite rehydration, trend HLD Anxiety Hold home meds, if tolerates diet will resume tomorrow COPD Tobacco abuse Down from 4ppd to 3cig every other day Continue home inhalers MAT protocol Nicotine patch Diagnosis/Problems Diagnosis/Problems (1) HLD (hyperlipidemia) (2) COPD (chronic obstructive pulmonary disease) (3) Hypokalemia (4) Tobacco abuse (5) Alcohol abuse (6) Acute pancreatitis Status: Acute Qualifiers: Pancreatitis type: unspecified pancreatitis type Acute pancreatitis complication: unspecified Qualified Codes: K85.90 - Acute pancreatitis without necrosis or infection, unspecified (7) GI (gastrointestinal bleed) Status: Acute Qualifiers: GI bleed type/associated pathology: melena Qualified Codes: K92.1 - Melena RALPH ARIZMENDI MD Sep 20, 2021 12:14
[2021-09-20] MEDS: ONDANSETRON 4 MG/2 ML (SDV) Z0FRAN IV PRN (14:41)
[2021-09-21] VITALS: BP 142/78
[2021-09-21] MEDS: ONDANSETRON 4 MG/2 ML (SDV) Z0FRAN IV PRN ×2 (00:32→06:34)
[2021-09-21 04:00] VITALS: BP 123/60
[2021-09-21 05:34] LABS: HEMATOCRIT 32 % (35-52); MEAN CORPUSCULAR HEMOGLOBIN 33 pg (25-34); MEAN CORPUSCULAR HGB CONC 35 g/dL (32-36); MEAN CORPUSCULAR VOLUME 93 fL (80-99); MEAN PLATELET VOLUME 9.3 fL (9.0-12.2); PLATELET COUNT 209 10^3/uL (130-400); WHITE BLOOD COUNT 5.3 10^3/uL (4.3-11.0)
[2021-09-21 05:57] LABS: ALBUMIN 3.3 GM/DL (3.2-4.5); BILIRUBIN,TOTAL 0.4 MG/DL (0.1-1.0); CALCIUM 8.7 MG/DL (8.5-10.1); CREATININE SERUM 0.58 MG/DL (0.60-1.30); MAGNESIUM 1.8 MG/DL (1.6-2.4); POTASSIUM 2.9 MMOL/L (3.6-5.0); TOTAL PROTEIN 6.3 GM/DL (6.4-8.2)
[2021-09-21] MEDS: KCL 20 MEQ TAB (K-DUR) PO SCH (06:00)
[2021-09-21] MEDS: POTASSIUM CL 10MEQ/50ML IVPB 50 ML IV SCH ×5 (06:00→09:20)
[2021-09-21] MEDS: MAGNESIUM 1 GM/100 ML IVPB 100 ML IV SCH (06:00)
--- NOTE | 2021-09-21 06:39 | Progress Note - Surgery ---
JONI ERICKSON 09/21/21 0639: Subjective Date Seen by a Provider: Sep 21, 2021 Time Seen by a Provider: 05:50 Subjective/Events-last exam Pt agitated this morning. Reports she has "been better" and that her pain is 7/10 currently. She is on CLD and threw up twice overnight from pain. She did not look at her vomit. What I could see in her madden looked clear with no blood. The pt wants to eat solid foods. Her nurse reports she is refusing pain meds because she wants to eat or be discharged. The pt reports she was refused pain meds. She is passing gas but has not had a bowel movement. Denies CP, palpitations, and nausea at this time. She feels slightly SOB due to her chronic respiratory issues. Review of Systems General: Fatigue, Malaise HEENT: No Head Aches, No Visual Changes Pulmonary: Dyspnea; No Cough Cardiovascular: No: Chest Pain, Palpitations Gastrointestinal: Vomiting (overnight), Abdominal Pain (diffuse); No: Nausea Genitourinary: No Dysuria, No Frequency Musculoskeletal: neck pain (chronic); No: leg pain Neurological: No: Weakness, Change in speech Focused Exam Respiratory: Lungs Clear, No Accessory Muscle Use, No Respiratory Distress Cardiovascular: Regular Rate, Rhythm, No Murmur Peripheral Pulses: 2+ Radial Pulses (R), 2+ Radial Pulses (L) Skin: normal color, warm/dry Objective Exam Vital Signs Date Time Temp Pulse Resp B/P (MAP) Pulse Ox O2 Delivery O2 Flow Rate FiO2 09/21/21 04:00 37.0 78 17 123/60 (81) 99 Nasal Cannula 2.00 09/21/21 01:00 89 09/21/21 00:00 37.1 81 18 142/78 (99) 99 Room Air 09/20/21 20:56 96 Room Air 09/20/21 19:31 37.2 86 18 154/68 (96) 100 Room Air 09/20/21 19:00 83 09/20/21 16:00 37.3 77 18 140/71 (94) 99 Room Air 09/20/21 12:52 86 09/20/21 12:00 36.8 87 18 138/80 (99) 98 Room Air 09/20/21 08:00 37.0 82 18 129/61 (83) 98 Room Air 09/20/21 08:00 96 Room Air 3.00 09/20/21 07:30 96 Room Air 09/20/21 07:00 76 I & O 09/21/21 07:00 Intake Total 2375 ml Balance 2375 ml Capillary Refill : Less Than 3 Seconds General Appearance: Anxious, Chronically ill, Thin Respiratory: Lungs Clear, No Accessory Muscle Use, No Respiratory Distress Cardiovascular: Regular Rate, Rhythm, No Murmur Peripheral Pulses: 2+ Radial Pulses (R), 2+ Radial Pulses (L) Gastrointestinal: soft, tenderness (diffuse), hernia Extremity: Normal Inspection, No Pedal Edema Neurologic/Psychiatric: Alert, Oriented x3, Other (Agitated) Skin: Normal Color, Warm/Dry Results Lab Laboratory Tests 09/21/21 05:20: White Blood Count 5.3, Red Blood Count 3.38L, Hemoglobin 11.0L, Hematocrit 32L, Mean Corpuscular Volume 93, Mean Corpuscular Hemoglobin 33, Mean Corpuscular Hemoglobin Concent 35, Red Cell Distribution Width 13.6, Platelet Count 209, Mean Platelet Volume 9.3, Sodium Level 132L, Potassium Level 2.9L, Chloride Level 108H, Carbon Dioxide Level 14L, Anion Gap 10, Blood Urea Nitrogen 2L, Creatinine 0.58L, Estimat Glomerular Filtration Rate 104, BUN/Creatinine Ratio 3, Glucose Level 140H, Calcium Level 8.7, Corrected Calcium 9.3, Phosphorus Level 2.0L, Magnesium Level 1.8, Total Bilirubin 0.4, Aspartate Amino Transf (AST/SGOT) 12, Alanine Aminotransferase (ALT/SGPT) 13, Alkaline Phosphatase 84, Total Protein 6.3L, Albumin 3.3 09/21/21 06:03: Assessment/Plan Assessment/Plan Assessment/Plan Acute Pancreatitis, no gallstones Umbilical hernia - confirmed on CT Hx bleeding ulcers Hx GERD Hypokalemia Hyponatremia Lipase down to 425 on 09/19 Revert diet to ice chips (vomiting and pain uncontrolled) Continue IV Fluid Electrolytes replace per protocol Pain management and anti-emetics as needed Outpatient EGD and colonoscopy KEMAR GAVIN DO 09/21/21 1950: Supervisory-Addendum Brief Verification & Attestation Participated in pt care: other Personally performed: other Care discussed with: Medical Student Procedures: n/a Pt left before I saw her. JONI ERICKSON Sep 21, 2021 06:39 KEMAR GAVIN DO Sep 21, 2021 19:50
[2021-09-21] MEDS ORDERED: POT PHOS/NA PHOS (K-PHOS NEUTRAL) PO NR (07:31)
[2021-09-21 07:36] VITALS: BP 132/73
[2021-09-21] MEDS: RT-ALBUTEROL/IPRATROPIUM 3 ML (DUONEB) VIAL INH SCH (08:06)
[2021-09-21] MEDS: NICOTINE PATCH REMOVAL TP SCH (09:19)
[2021-09-21] MEDS: NS IV 1000 ML 1,000 ML IV SCH (09:19)
[2021-09-21] MEDS: NICOTINE 7 MG (NICODERM) PATCH TD SCH (09:20)
[2021-09-21] MEDS: PANTOPRAZOLE 40 MG (PROTONIX) VIAL IV SCH (09:20)
[2021-09-21] MEDS ORDERED: POTASSIUM CL 10MEQ/50ML IVPB 50 ML IV ONE (11:00)
[2021-09-21] MEDS: fentaNYL INJ 100 MCG/2 ML AMP IVP PRN (11:38)
[2021-09-21 11:51] VITALS: BP 141/79
[2021-09-21] MEDS ORDERED: OXYC5TAB PO (12:57)
--- NOTE | 2021-09-21 18:53 | Discharge Summary ---
Discharge Summary Hospital Course Problems/Dx: (1) Acute pancreatitis Status: Acute Qualifiers: Qualified Codes: K85.90 - Acute pancreatitis without necrosis or infection, unspecified (2) GI (gastrointestinal bleed) Status: Acute Qualifiers: Qualified Codes: K92.1 - Melena (3) HLD (hyperlipidemia) (4) COPD (chronic obstructive pulmonary disease) (5) Hypokalemia (6) Tobacco abuse (7) Alcohol abuse Hospital Course Date of Admission: Sep 17, 2021 at 11:35 Admission Diagnosis : Acute alcoholic pancreatitis Family Physician/Provider: [facility] Phys[facility] Date of Discharge: 09/21/21 Discharge Diagnosis: Acute alcoholic pancreatitis Hospital Course: Carola Peace is a 61 year old female who was admitted with acute alcoholic pancreatitis. She is a heavy drinker. She was treated with IV pain medication, IV fluids, and nothing by mouth. Surgery was consulted and assisted with her care. She improved. Her diet was advanced and she tolerated this well. She was given a small supply of pain medicine to continue at home as needed. She should abstain from alcohol use. Her course was complicated by positive fecal occult blood. Her hemoglobin remained stable. Surgery plans to perform EGD/colonoscopy as an outpatient. She was discharged home in stable condition. She should follow up with her PCP. Labs and Pending Lab Test: Laboratory Tests 09/21/21 05:20: White Blood Count 5.3, Red Blood Count 3.38L, Hemoglobin 11.0L, Hematocrit 32L, Mean Corpuscular Volume 93, Mean Corpuscular Hemoglobin 33, Mean Corpuscular Hemoglobin Concent 35, Red Cell Distribution Width 13.6, Platelet Count 209, Mean Platelet Volume 9.3, Sodium Level 132L, Potassium Level 2.9L, Chloride Level 108H, Carbon Dioxide Level 14L, Anion Gap 10, Blood Urea Nitrogen 2L, Creatinine 0.58L, Estimat Glomerular Filtration Rate 104, BUN/Creatinine Ratio 3, Glucose Level 140H, Calcium Level 8.7, Corrected Calcium 9.3, Phosphorus Level 2.0L, Magnesium Level 1.8, Total Bilirubin 0.4, Aspartate Amino Transf (AST/SGOT) 12, Alanine Aminotransferase (ALT/SGPT) 13, Alkaline Phosphatase 84, Total Protein 6.3L, Albumin 3.3 09/21/21 14:10: Potassium Level 3.7 Home Meds Active Oxycodone HCl 5 Mg Tablet 5 Mg PO Q4H PRN 7 Days Reported Benadryl Allergy (Diphenhydramine HCl) 25 Mg Tablet 25 Mg PO DAILY PRN Multi-Vitamin Daily (Multivitamin) 1 Each Tablet 1 Each PO DAILY Pepto-Bismol (Bismuth Subsalicylate) 262 Mg/15 Ml Oral.susp 15 Ml PO DAILY PRN Calcium (Calcium Carbonate) 500 Mg Tablet 500 Mg PO DAILY Mucinex (Guaifenesin) 600 Mg Tab.er.12h 600 Mg PO BID PRN Proair Hfa (Albuterol Sulfate) 1 Puff Puff 2 Puff IH Q4H PRN 1 PUFF = 90 MCG Neurontin (Gabapentin) 300 Mg Capsule 300 Mg PO TID Methocarbamol 750 Mg Tablet 1,500 Mg PO BID TAKES 2 (750MG) TABS Stiolto Respimat Inhal [place] (Tiotropium Br/Olodaterol HCl) 4 Gm Mist.inhal 1 Puff PO DAILY Ibuprofen 800 Mg Tablet 800 Mg PO TID PRN Duloxetine HCl 60 Mg Capsule.dr 60 Mg PO DAILY Omeprazole 20 Mg Capsule.dr 20 Mg PO DAILY Atorvastatin Calcium 20 Mg Tablet 20 Mg PO DAILY Buspirone HCl 10 Mg Tablet 10 Mg PO TID Assessment/Pt Instructions Take medications as prescribed. Discontinue alcohol use. Follow up with surgery for outpatient endoscopy evaluation. Follow up with your PCP. Return with worsening symptoms. Discharge Planning: >30 minutes discharge planning Discharge Instructions Discharge Diet: No Restrictions Activity as Tolerated: Yes Consultations Surgery Discharge Physical Examination Vital Signs Vital Signs Date Time Temp Pulse Resp B/P (MAP) Pulse Ox O2 Delivery O2 Flow Rate FiO2 09/21/21 14:44 09/21/21 13:00 98 09/21/21 11:51 37.0 20 97 Room Air 09/21/21 04:00 2.00 09/20/21 01:37 21 General Appearance: No Apparent Distress, WD/WN Respiratory: Lungs Clear, No Respiratory Distress Cardiovascular: Regular Rate, Rhythm, No Murmur Gastrointestinal: Normal Bowel Sounds, Soft Extremity: Normal Inspection, No Pedal Edema Skin: Normal Color, Warm/Dry Neurologic/Psychiatric: Alert, Normal Mood/Affect Allergies: Coded Allergies: Sulfa (Sulfonamide Antibiotics) (Verified Allergy, Unknown, 09/17/21) codeine (Verified Allergy, Unknown, 09/17/21) prednisone (Verified Allergy, Unknown, 09/17/21) tramadol (Verified Allergy, Unknown, 09/17/21) Discharge Summary Date of Admission Sep 17, 2021 at 11:35 Date of Discharge Sep 21, 2021 at 14:45 Discharge Date: Sep 21, 2021 Discharge Time: 14:45 Admission Diagnosis Acute Pancreatitis Consults/Procedures Consulations Surgery Discharge Diagnosis (1) Acute pancreatitis Status: Acute Qualifiers: Qualified Codes: K85.90 - Acute pancreatitis without necrosis or infection, unspecified (2) GI (gastrointestinal bleed) Status: Acute Qualifiers: Qualified Codes: K92.1 - Melena (3) HLD (hyperlipidemia) (4) COPD (chronic obstructive pulmonary disease) (5) Hypokalemia (6) Tobacco abuse (7) Alcohol abuse DAVID MCLAIN MD Sep 21, 2021 18:53
--- OUTSIDE RECORDS SUMMARY | 2021-09-23 14:31 | XMS REPORT | Encounter Summary ---
Author Author [facility] Organization [facility] Address Unknown Phone Unavailable Care Team Providers Care Spot Worker Name Role Phone Teofilo Romano MD PCP Reason for Visit * Reason Onset Date Comments Appointment 09/14/2021 Encounter Details Care Team Description Date Type Department Criss Nova MD [address] [place] [address] Appointment 09/14/2021 Telephone [facility]: [facility] [place] [address] [facility] [address] [place] [address] Social History Date Tobacco Use Types Packs/Day Years Used Current Some Day Smoker Cigarettes Smokeless Tobacco: Never Used Comments Alcohol Use Standard Drinks/Week Yes 2 (1 standard drink = 0.6 o z pure alcohol) Sex Assigned at Date Recorded Female 06/10/2021 10:14 AM [employer] documented as of this encounter Functional Status Date of Assessment Functional Status Response 06/10/2021 Does the patient have a hearing impairment: No 06/10/2021 Does the patient have a visual impairment: Yes 06/10/2021 Does the patient have impaired ambulation: No 06/10/2021 Does the patient have an activity of daily living No (ADL) impairment: 06/10/2021 Does the patient have an instrumental activity of No daily living (IADL) impairment: Date of Assessment Cognitive Status Response 06/10/2021 Does the patient have a cognitive impairment: No documented as of this encounter Miscellaneous Notes * Telephone Encounter - Nicolette Treviño RN - 09/14/2021 12:48 PM [employer] This RN called patient to discuss her appt with Dr. Zheng this 09/16/21 and p atient states that she is "sick" and has fevers and vomiting. This RN explained to patient that this RN will have to cancel her appt. This RN recommended to pat ient to stay quarintened, get a COVID test at a drive through at a Pharmacy and to call her PCP and discuss her symptoms and plan of care with her PCP. This RN provided patient with the Spine Center scheduling # to call and r eschedule her appt with Dr. Zheng when she is feeling better, is asymptomatic and out of quarantine (if COVID +) Patient verbalizes understanding, denies any fur ther questions, concerns or needs at this time. This RN cancelled 09/16/21 appoint ment. [employer] documented in this encounter Plan of Treatment Not on filedocumented as of this encounter Visit Diagnoses Not on filedocumented in this encounter Additional Health Concerns Noted Time Assessment 06/10/2021 10:20 AM [employer] A fall risk assessment has been complet ed for the patient documented as of this encounter Care Teams Start Date End Date Spot Worker Relationship Specialty 06/08/21 Teofilo Romano MD PCP - General Pediatrics [address] [place] [id number] documented as of this encounter
--- OUTSIDE RECORDS SUMMARY | 2021-09-23 14:31 | XMS REPORT | Encounter Summary ---
Author Author [facility] Organization [facility] Address Unknown Phone Unavailable Care Team Providers Care Special Trackwork Blacksmith Name Role Phone Teofilo Romano MD PCP Reason for Visit * Reason Onset Date Comments Error 09/14/2021 Encounter Details Care Team Description Date Type Department Criss Nova MD [address] [place] [address] Error 09/14/2021 Telephone [facility]: [facility]: [id number] [place] [address] Social History Date Tobacco Use Types Packs/Day Years Used Current Some Day Smoker Cigarettes Smokeless Tobacco: Never Used Comments Alcohol Use Standard Drinks/Week Yes 2 (1 standard drink = 0.6 o z pure alcohol) Sex Assigned at Date Recorded Female 06/10/2021 10:14 AM [employer] SPECIALIST documented as of this encounter Functional Status [...] impairment: No documented as of this encounter Plan of Treatment Not on filedocumented as of this encounter Visit Diagnoses Not on filedocumented in this encounter Additional Health Concerns Noted Time Assessment 06/10/2021 10:20 AM [employer]IST A fall risk assessment has been complet ed for the patient documented as of this encounter Care Teams Start Date End Date Special Trackwork Blacksmith Relationship Specialty 06/08/21 Teofilo Romano MD PCP - General Pediatrics [address] [place] [address] documented as of this encounter
--- OUTSIDE RECORDS SUMMARY | 2021-09-23 14:31 | XMS REPORT | Clinical Summary ---
Author Author [facility] Organization [facility] Address Unknown Phone Unavailable Care Team Providers Care Inspector Toys Name Role Phone Teofilo Romano MD PCP Source Comments Some departments are not documenting in the electronic medical record. If you d o not see the information that you expected, contact Release of Information in [facility] Information Management department at [phone] for further assistan ce in locating additional records.[facility] Allergies Comments Active Allergy Reactions Severity Noted Date Codeine HEADACHE, High 02/23/2010 HIVES, RASH Sulfa (Sulfonamide HEADACHE, High 02/23/2010 Antibiotics) RASH, SHORTNESS OF BREATH Tramadol FEVER, RASH High 02/03/2021 Medications End Date Status Medication Sig Dispensed Refills Start Date Active albuterol sulfate (PROAIR 2 puff(s), 0 05/11 HFA) 90 mcg/actuation HFA INH, q4hr 0 aerosol inhaler (interval), PRN: for wheezing, # 8 gm, 6 Refill(s), Pharmacy: [facility], Aerosol, 172, cm, 10/22/20 15:57:00 CDT, Height/Length Dosing, 69, kg, 10/22/20 15:57:00 CDT, Weight Dosing Active atorvastatin (LIPITOR) 20 0 mg tablet 1 Active azithromycin (ZITHROMAX) Take by 0 02/23 250 mg tablet mouth. 0 Active busPIRone (BUSPAR) 10 mg Take 10 mg by 0 09/23 tablet mouth. 1 Active butalbital/acetaminophen/ 0 caffeine (FIORICET) 1 50/325/40 mg tablet Active fluticasone propionate Inhale 1 puff 0 02 (FLOVENT HFA) 110 by mouth into 1 mcg/actuation inhaler the lungs twice daily. Active gabapentin (NEURONTIN) Take 300 mg 0 02 300 mg capsule by mouth. 1 Active guaiFENesin LA (MUCINEX) Take 600 mg 0 10/13 600 mg tablet by mouth. [address] (CYMBALTA) Take 60 mg by 0 04/22 60 mg capsule mouth. 1 Active ibuprofen (MOTRIN) 800 mg 0 tablet [address] (PRILOSEC) Take 20 mg by 0 07/31 20 mg capsule mouth. 1 Active tiotropium-olodateroL See 0 09/27/19 2 (STIOLTO RESPIMAT) Instructions, 1 2.5-2.5 mcg/actuation Instructions: inhaler INHALE 2 PUFFS BY MOUTH EVERY 24 HOURS, # 4 gm, 5 Refill(s), Pharmacy: [facility], 172, cm, 10/22/20 15:57:00 CDT, Height/Length Dosing, 69, kg, 10/22/20 15:57:00 CDT, Weight Dosing Active Problems Not on file Encounters Care Team Description Date Type Specialty Criss Nova MD Appointment 09/14/2021 Telephone Neurosurgery Criss Nova MD Error 09/14/2021 Telephone Neurosurgery from Last 3 Months Social History Date Tobacco Use Types Packs/Day Years Used Current Some Day Smoker Cigarettes Smokeless Tobacco: Never Used Comments Alcohol Use Standard Drinks/Week Yes 2 (1 standard drink = 0.6 o z pure alcohol) Sex Assigned at Date Recorded Female 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 Obstetrics History Last Filed Vital Signs Reading Time Taken Comments Vital Sign - - Blood Pressure - - Pulse - - Temperature 18 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 Respiratory Rate - - Oxygen Saturation - - Inhaled Oxygen Concentration 69.4 kg (153 lb) 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 Weight 172.7 cm (5' 8") 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 Height 23.26 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 Body Mass Index Plan of Treatment Health Maintenance Due Date Last Done Comments COVID-19 VACCINE (1) 1967 HIV SCREENING 1977 DTAP/TDAP VACCINES (1 - 1980 Tdap) HEPATITIS C SCREENING 1980 PHYSICAL (COMPREHENSIVE) 1980 EXAM CERVICAL CANCER SCREENING 1983 BREAST CANCER SCREENING 2002 COLORECTAL CANCER 2012 SCREENING SHINGLES RECOMBINANT 2012 VACCINE (1 of 2) INFLUENZA VACCINE 02/08/2021 04/27/2019 Results Not on filefrom Last 3 Months Insurance Type Payer Benefit Subscriber ID Effective Phone Address Plan / Dates Group Indemnity [facility] [id number] 2021-P [phone] [address] [address] [place] [address] [place] (Home) [place] [phone] Advance Directives Patient Transmission Mechanic Explanation Type Date Recorded Advance Directive/DPOA Care Teams Start Date End Date Inspector Toys Relationship Specialty 06/08/21 Teofilo Romano MD PCP - General Pediatrics [address] [place] [id number]
== END 2021-09-21 14:45 | disposition home or self-care (01) | DRG 438 ==
LOC: ER 08:36 → 4TH 11:35 → UNDOADMOB 11:35 → UNDODISOB 09-21 14:45
PROVIDERS: ADMIT Family Medicine; ATTEND Internal Medicine
PROC: 8E0ZXY6 Isolation (ICD-10-PCS; principal; 2021-09-17)
DX: K85.20 Alcohol induced acute pancreatitis without necrosis or infection (principal); K27.4 Chronic or unspecified peptic ulcer, site unspecified, with hemorrhage; E87.1 Hypo-osmolality and hyponatremia; F10.10 Alcohol abuse, uncomplicated; J43.9 Emphysema, unspecified; E87.6 Hypokalemia; E78.00 Pure hypercholesterolemia, unspecified; E78.5 Hyperlipidemia, unspecified; Z20.822 Contact with and (suspected) exposure to COVID-19; I10 Essential (primary) hypertension; F17.210 Nicotine dependence, cigarettes, uncomplicated; K21.9 Gastro-esophageal reflux disease without esophagitis; F41.9 Anxiety disorder, unspecified; K42.9 Umbilical hernia without obstruction or gangrene; Z88.5 Allergy status to narcotic agent; Z88.2 Allergy status to sulfonamides; Z88.8 Allergy status to other drugs, medicaments and biological substances
CPT/HCPCS: 36415; 71045; 74177; 76705; 80048; 80053; 80320; 83690; 83735; 84100; 84132; 84484; 85007; 85027; 87636; 93005; 94640; 94760; 96361; 96374; 96375; 96376

== ENCOUNTER 2021-11-18 21:09 | Emergency (ER) | payer MEDICARE, MEDICAID ==
[~2021-11-18 21:09] MED LIST: ATOR20TA66 PO; AZIT250T12 PO; BISM262O27 PO; BUSP10TA95 PO; CALC-823 PO; DIPH25TA65 PO; DULO60CA59 PO; GABA300C PO; GUAI600T43 PO; IBUP-1780 PO; METH-732 PO; MULT-974 PO; OMEP20CA18 PO; OXYC5TAB PO; RT-ALBUINH IH; TIOT4MIS3 PO
--- NOTE | 2021-11-18 21:39 | ED Lower Extremity ---
General Chief Complaint: Lower Extremity Stated Complaint: L ANKLE INJURY Source: patient Exam Limitations: no limitations History of Present Illness Date Seen by Provider: November 18, 2021 Time Seen by Provider: 21:28 Initial Comments Patient is a 61-year-old female who presents to the emergency room with a chief complaint of twisting her left ankle this evening and thinking she might of broken it. Patient was sitting in a chair and her foot went to sleep. When she stood up her ankle twisted and she fell to the ground. She Suffered an abrasion to her left elbow. She states she was not able to bear weight on her left ankle/foot. No other complaints of illness or injury. Did not hit her head or have loss of consciousness. All other review of systems reviewed and negative except as stated. Onset: just prior to arrival Pain/Injury Location: left ankle Method of Injury: fell Modifying Factors: Worse With Movement Allergies and Home Medications Allergies Coded Allergies: Sulfa (Sulfonamide Antibiotics) (Verified Allergy, Unknown, 09/17/21) codeine (Verified Allergy, Unknown, 09/17/21) prednisone (Verified Allergy, Unknown, 09/17/21) tramadol (Verified Allergy, Unknown, 09/17/21) Patient Home Medication List Home Medication List Reviewed: Yes Albuterol Sulfate (Proair Hfa) 1 Puff Puff, 2 PUFF IH Q4H PRN for SHORTNESS OF BREATH, (Reported) Entered as Reported by: RACHAEL SHARMA on 09/17/21 1539 Atorvastatin Calcium (Atorvastatin Calcium) 20 Mg Tablet, 20 MG PO DAILY, (Reported) Entered as Reported by: RACHAEL SHARMA on 09/17/21 1538 Bismuth Subsalicylate (Pepto-Bismol) 262 Mg/15 Ml Oral.susp, 15 ML PO DAILY PRN for UPSET STOMACH, (Reported) Entered as Reported by: RACHAEL SHARMA on 09/17/21 1542 Buspirone HCl (Buspirone HCl) 10 Mg Tablet, 10 MG PO TID, (Reported) Entered as Reported by: RACHAEL SHARMA on 09/17/21 1538 Calcium Carbonate (Calcium) 500 Mg Tablet, 500 MG PO DAILY, (Reported) Entered as Reported by: RACHAEL SHARMA on 09/17/21 1542 Diphenhydramine HCl (Benadryl Allergy) 25 Mg Tablet, 25 MG PO DAILY PRN for ALLERGIES, (Reported) Entered as Reported by: RACHAEL SHARMA on 09/17/21 154 Duloxetine HCl (Duloxetine HCl) 60 Mg Capsule.dr, 60 MG PO DAILY, (Reported) Entered as Reported by: RACHAEL SHARMA on 09/17/21 153 Gabapentin (Neurontin) 300 Mg Capsule, 300 MG PO TID, (Reported) Entered as Reported by: RACHAEL SHARMA on 09/17/21 153 Guaifenesin (Mucinex) 600 Mg Tab.er.12h, 600 MG PO BID PRN for CONGESTION, (Reported) Entered as Reported by: RACHAEL SHARMA on 09/17/21 154 Ibuprofen (Ibuprofen) 800 Mg Tablet, 800 MG PO TID PRN for PAIN-MILD (1-4), (Reported) Entered as Reported by: RACHAEL SHARMA on 09/17/21 153 Methocarbamol (Methocarbamol) 750 Mg Tablet, 1,500 MG PO BID, (Reported) Entered as Reported by: RACHAEL SHARMA on 09/17/211537 Multivitamin (Multi-Vitamin Daily) 1 Each Tablet, 1 EACH PO DAILY, (Reported) Entered as Reported by: RACHAEL SHARMA on 09/17/21 154 Omeprazole (Omeprazole) 20 Mg Capsule.dr, 20 MG PO DAILY, (Reported) Entered as Reported by: RACHAEL SHARMA on 09/17/21 153 Oxycodone HCl (Oxycodone HCl) 5 Mg Tablet, 5 MG PO Q4H PRN for PAIN-SEVERE (8- 10) Prescribed by: DAVID MCLAIN on 09/21/21 1258 Tiotropium Br/Olodaterol HCl (Stiolto Respimat Inhal [employer]) 4 Gm Mist.inhal, 1 PUFF PO DAILY, (Reported) Entered as Reported by: RACHAEL SHARMA on 09/17/21 153 Review of Systems Constitutional: see HPI Respiratory: no symptoms reported Cardiovascular: no symptoms reported Gastrointestinal: no symptoms reported Musculoskeletal: joint pain (Left ankle) Skin: other (Abrasion) All Other Systems Reviewed Negative Unless Noted: Yes Past Udvqoda-Neqcwt-Eyygxd Hx Immunizations Up To Date Tetanus Booster (TDap): Unknown First/Initial COVID19 Vaccinat: NA, Patient refusal Second COVID19 Vaccination Asad: NA, Patient refusal Third COVID19 Vaccination Date: NA, Patient refusal Seasonal Allergies Seasonal Allergies: No Past Medical History Surgeries: Yes Section, Orthopedic Respiratory: Yes COPD, Emphysema Currently Using CPAP: No Currently Using BIPAP: No Cardiac: Yes High Cholesterol, Hypertension Neurological: Yes Headaches /Migraines, Neuropathy Reproductive Disorders: No Genitourinary: No Gastrointestinal: Yes Gastrointestinal Bleed, Ulcer Musculoskeletal: No Endocrine: No HEENT: No Loss of Vision: Denies Hearing Impairment: Denies Cancer: No Psychosocial: Yes Anxiety, Depression Integumentary: No Blood Disorders: No Adverse Reaction/Blood Tranf: No Family Medical History Heart Disease, Cancer Physical Exam Vital Signs Capillary Refill : Height, Weight, BMI Height: '" Weight: lbs. oz. kg; 23.70 BMI Method: General Appearance: WD/WN, no apparent distress HEENT: PERRL/EOMI Neck: normal inspection Cardiovascular: regular rate, rhythm Respiratory: lungs clear, normal breath sounds, no respiratory distress, no accessory muscle use Hips: bilateral hip non-tender, bilateral hip normal inspection, bilateral hip normal range of motion, bilateral hip no evidence of injury Legs: bilateral leg non-tender, bilateral leg normal inspection, bilateral leg normal range of motion, bilateral leg no evidence of injury Knees: bilateral knee non-tender, bilateral knee normal inspection, bilateral knee normal range of motion, bilateral knee no evidence of injury Ankles: left ankle limited range of motion, left ankle pain, left ankle soft tissue tenderness (Lateral malleolar), left ankle swelling Feet: bilateral foot non-tender, bilateral foot normal inspection, bilateral foot normal range of motion, bilateral foot no evidence of injury Neurologic/Psychiatric: alert, normal mood/affect, oriented x 3 Skin: normal color, warm/dry, other (Small left elbow abrasion) Progress/Results/Core Measures Results/Orders My Orders Orders - SHANTANU MITCHELL MD Ankle, Left, 3 Views (11/18/21 21:38) Hydrocodone/Apap 5/325 Tablet (Lortab 5 (11/18/21 22:00) Rx-Hydrocodone/Apap 5-325 Mg (Rx-Vicodin (11/18/21 22:00) Progress Progress Note : Time: 22:05 Progress Note Patient Huber wrap for comfort. Advised to elevate and ice over the next 2 days. Will provide crutches for nonweightbearing for a day or 2 and then encouraged her to start bearing weight by Tuesday. Follow-up with her primary care physician. Return precautions discussed. She verbalized understanding. All questions are sought and answered Diagnostic Imaging Diagonstic Imaging: Xray Comments left ankle - no fracture or dislocation (interpreted by me) Departure Impression Primary Impression: Sprain and strain of ankle Disposition: HOME, SELF-CARE Condition: Stable Departure-Patient Inst. Decision time for Depature: 22:07 Referrals: [facility]IVAN [facility],LOCAL PHYSICIAN (PCP) Primary Care Physician Patient Instructions: Ankle Sprain ED Add. Discharge Instructions: Keep the left foot/ankle elevated over the next 24 to 48 hours. Ice it 20 minutes at a time several times daily. You can take libm-mjy-[id number] extra strength Tylenol, 2 pills every 6 hours as needed for pain. I have provided a few hydrocodone tablets to take for worsening pain. Keep the Huber wrap on for comfort. Crutch walking with toe-touch for balance for the next 2 days. You need to try to start bearing weight on the ankle by Tuesday. Follow-up with [facility]. Return to the emergency room for any new, concerning or emergent complaints. Scripts Hydrocodone/Acetaminophen (Hydrocodone-Acetamin 5-325 mg) 5 Mg-325 Mg Tablet 1 TAB PO Q6H PRN for PAIN-MODERATE (5-7), #8 TAB Prov: SHANTANU MITCHELL MD 11/18/21 SHANTANU MITCHELL MD November 18, 2021 21:39
[2021-11-18] MEDS ORDERED: HYDROcodone/APAP 5 MG/325 MG (LORTAB) TAB PO ONE (22:00)
[2021-11-18] MEDS ORDERED: ACHD5005 PO (22:09)
[2021-11-18 22:28] VITALS: BP 148/84
--- NOTE | 2021-11-18 22:31 | Diagnostic Imaging Report ---
CLINICAL INDICATION: Patient status post fall with left ankle pain. EXAM: X-ray of left ankle, 3 views. COMPARISON: None. FINDINGS AND IMPRESSION: There is soft tissue swelling seen adjacent to the lateral malleolar region. There is no acute fracture or dislocation. The ankle mortise and syndesmotic joints are unremarkable. Dictated by: Dictated on workstation # [id number]
== END 2021-11-18 22:28 | disposition home or self-care (01) ==
LOC: EDUNIT# 21:09 → ER 21:11
DX: S93.402A Sprain of unspecified ligament of left ankle, initial encounter (principal); S96.912A Strain of unspecified muscle and tendon at ankle and foot level, left foot, initial encounter; S50.312A Abrasion of left elbow, initial encounter; X50.1XXA Overexertion from prolonged static or awkward postures, initial encounter; W18.30XA Fall on same level, unspecified, initial encounter
CPT/HCPCS: 73610

== ENCOUNTER 2021-12-01 19:36 | Emergency (ER) | payer MEDICARE, MEDICAID ==
[~2021-12-01 19:36] MED LIST changes: +ACHD5005 PO
--- NOTE | 2021-12-01 19:51 | ED Lower Extremity ---
General Stated Complaint: FOOT PAIN Source: patient Exam Limitations: no limitations History of Present Illness Date Seen by Provider: December 01, 2021 Allergies and Home Medications Allergies Coded Allergies: Sulfa (Sulfonamide Antibiotics) (Verified Allergy, Unknown, 09/17/21) codeine (Verified Allergy, Unknown, 09/17/21) prednisone (Verified Allergy, Unknown, 09/17/21) tramadol (Verified Allergy, Unknown, 09/17/21) Patient Home Medication List Albuterol Sulfate (Proair Hfa) 1 Puff Puff, 2 PUFF IH Q4H PRN for SHORTNESS OF BREATH, (Reported) Entered as Reported by: RACHAEL SHARMA on 09/17/21 1539 Atorvastatin Calcium (Atorvastatin Calcium) 20 Mg Tablet, 20 MG PO DAILY, (Reported) Entered as Reported by: RACHAEL SHARMA on 09/17/21 153 Bismuth Subsalicylate (Pepto-Bismol) 262 Mg/15 Ml Oral.susp, 15 ML PO DAILY PRN for UPSET STOMACH, (Reported) Entered as Reported by: RACHAEL SHARMA on 09/17/21 154 Buspirone HCl (Buspirone HCl) 10 Mg Tablet, 10 MG PO TID, (Reported) Entered as Reported by: RACHAEL SHARMA on 09/17/21 153 Calcium Carbonate (Calcium) 500 Mg Tablet, 500 MG PO DAILY, (Reported) Entered as Reported by: RACHAEL SHARMA on 09/17/21 154 Diphenhydramine HCl (Benadryl Allergy) 25 Mg Tablet, 25 MG PO DAILY PRN for ALLERGIES, (Reported) Entered as Reported by: RACHAEL SHARMA on 09/17/21 154 Duloxetine HCl (Duloxetine HCl) 60 Mg Capsule.dr, 60 MG PO DAILY, (Reported) Entered as Reported by: RACHAEL SHARMA on 09/17/21 153 Gabapentin (Neurontin) 300 Mg Capsule, 300 MG PO TID, (Reported) Entered as Reported by: RACHAEL SHARMA on 09/17/21 153 Guaifenesin (Mucinex) 600 Mg Tab.er.12h, 600 MG PO BID PRN for CONGESTION, (Reported) Entered as Reported by: RACHAEL SHARMA on 09/17/21 154 Hydrocodone/Acetaminophen (Hydrocodone-Acetamin 5-325 mg) 5 Mg-325 Mg Tablet, 1 TAB PO Q6H PRN for PAIN-MODERATE (5-7) Prescribed by: SHANTANU MITCHELL on 11/18/21 2210 Ibuprofen (Ibuprofen) 800 Mg Tablet, 800 MG PO TID PRN for PAIN-MILD (1-4), (Reported) Entered as Reported by: RACHAEL SHARMA on 09/17/21 1538 Methocarbamol (Methocarbamol) 750 Mg Tablet, 1,500 MG PO BID, (Reported) Entered as Reported by: RACHAEL SHARMA on 09/17/21 153 Multivitamin (Multi-Vitamin Daily) 1 Each Tablet, 1 EACH PO DAILY, (Reported) Entered as Reported by: RACHAEL SHARMA on 09/17/21 1543 Omeprazole (Omeprazole) 20 Mg Capsule.dr, 20 MG PO DAILY, (Reported) Entered as Reported by: RACHAEL SHARMA on 09/17/21 153 Oxycodone HCl (Oxycodone HCl) 5 Mg Tablet, 5 MG PO Q4H PRN for PAIN-SEVERE (8- 10) Prescribed by: DAVID MCLAIN on 09/21/21 1258 Tiotropium Br/Olodaterol HCl (Stiolto Respimat Inhal [place]) 4 Gm Mist.inhal, 1 PUFF PO DAILY, (Reported) Entered as Reported by: RACHAEL SHARMA on 09/17/21 153 Past Lumcuwu-Oetwgc-Xirzcl Hx Immunizations Up To Date Tetanus Booster (TDap): Unknown First/Initial COVID19 Vaccinat: NA, Patient refusal Second COVID19 Vaccination Asad: NA, Patient refusal Third COVID19 Vaccination Date: NA, Patient refusal Seasonal Allergies Seasonal Allergies: No Past Medical History Surgery/Hospitalization HX: ANXIETY, DEPRESSION, HLD, CHRONIC PAIN, ULCERS , I&D Surgeries: Yes Section, Orthopedic Respiratory: Yes COPD, Emphysema Currently Using CPAP: No Currently Using BIPAP: No Cardiac: Yes High Cholesterol, Hypertension Neurological: Yes Headaches /Migraines, Neuropathy Reproductive Disorders: No Genitourinary: No Gastrointestinal: Yes Gastrointestinal Bleed, Ulcer Musculoskeletal: No Endocrine: No HEENT: No Loss of Vision: Denies Hearing Impairment: Denies Cancer: No Psychosocial: Yes Anxiety, Depression Integumentary: No Blood Disorders: No Adverse Reaction/Blood Tranf: No Family Medical History Heart Disease, Cancer Physical Exam Vital Signs Vital Signs - First Documented 12/01/21 19:45 Temp 36.3 Pulse 109 Resp 20 B/P (MAP) 145/90 (108) Capillary Refill : Height, Weight, BMI Height: '" Weight: lbs. oz. kg; 23.70 BMI Method: Progress/Results/Core Measures Results/Orders My Orders Orders - SUELLEN EL APRN Foot, Left, 3 Views (12/01/21 20:00) Ankle, Left, 3 Views (12/01/21 20:00) Hydrocodone/Apap 5/325 Tablet (Lortab 5 (12/01/21 20:00) Medications Given in ED Current Medications Medications Dose Ordered Sig/Oscar Route Start Time Stop Time Status Last Admin Dose Admin Acetaminophen/ Hydrocodone Bitart 1 ea ONCE ONCE PO 12/01/21 20:00 12/01/21 20:03 DC 12/01/21 20:08 1 EA Vital Signs/I&O 12/01/21 19:45 Temp 36.3 Pulse 109 Resp 20 B/P (MAP) 145/90 (108) Departure Impression Primary Impression: Sprain and strain of ankle Disposition: 01 HOME, SELF-CARE Condition: Improved Departure-Patient Inst. Decision time for Depature: 20:28 Referrals: NO,LOCAL PHYSICIAN (PCP/Family) Primary Care Physician Patient Instructions: Ankle Sprain (DC) Add. Discharge Instructions: Plan: 1. Use walking boot for comfort. Follow up with your doctor next week. 2. May use Tylenol or Ibuprofen as needed for pain per package. 3. Use becca wrap and keep elevated as much as possible to reduce swelling. 4. Return for any new, concerning, or worsening symptoms. SUELLEN EL CONTACT CENTER ASSOCIATE December 01, 2021 19:51
[2021-12-01] MEDS ORDERED: HYDROcodone/APAP 5 MG/325 MG (LORTAB) TAB PO ONE (20:00)
--- NOTE | 2021-12-01 20:23 | Diagnostic Imaging Report ---
EXAMINATION: Left ankle radiograph EXAM DATE: 12/01/2021 8:15 PM COMPARISON: 11/18/2021 HISTORY: SWELLING AND PAIN TECHNIQUE: 3 views FINDINGS: There is no acute fracture, dislocation, or destructive osseous process. The joint spaces are normal. There is mild soft tissue swelling within the ankle. IMPRESSION: 1. No acute osseous abnormality. Dictated by: Dictated on workstation # [id number]
--- NOTE | 2021-12-01 20:32 | Diagnostic Imaging Report ---
EXAMINATION: Left foot radiograph EXAM DATE: 12/01/2021 8:15 PM COMPARISON: None available. HISTORY: Foot pain TECHNIQUE: 3 views FINDINGS: There is no acute fracture, dislocation, or destructive osseous process. The joint spaces are normal. The soft tissues are normal. IMPRESSION: 1. No acute osseous abnormality. Dictated by: Dictated on workstation # [id number]
[2021-12-01 20:40] VITALS: BP 145/90
== END 2021-12-01 20:43 | disposition home or self-care (01) ==
LOC: EDUNIT# 19:36 → ER 19:39
DX: S93.402A Sprain of unspecified ligament of left ankle, initial encounter (principal); S96.912A Strain of unspecified muscle and tendon at ankle and foot level, left foot, initial encounter; Z28.310 Unvaccinated for COVID-19; X58.XXXA Exposure to other specified factors, initial encounter
CPT/HCPCS: 73610; 73630

== ENCOUNTER 2022-01-11 17:20 | Emergency (ER) | payer MEDICARE, MEDICAID ==
[~2022-01-11] VITALS: Ht 172 cm; Wt 65.0 kg
[2022-01-11] MEDS ORDERED: methylPREDNISolone 125 MG (Solu-MEDROL) VIAL IVP ONE (17:45)
[2022-01-11] MEDS ORDERED: RT-ALBUTEROL/IPRATROPIUM 3 ML (DUONEB) VIAL INH ONE (17:45)
--- NOTE | 2022-01-11 17:48 | ED Chest Pain ---
General Chief Complaint: Rib Pain Stated Complaint: SOB, BODY ACHES, COVID + Nursing Triage Note: PT ARRIVED VIA AMBULATORY TO ROOM 09 WITH COMPLAINTS OF RIB PAIN FROM COUGHING SO HARD. STATES SHE TESTED POSITIVE FOR COVID X10 DAYS AGO. ALSO COMPLAINS OF SOA ET IS SUPPOSE TO BE ON OXGEN BUT SHE DID NOT HAVE A LITTLE TANK TO COME WITH HER. Source: patient Exam Limitations: no limitations History of Present Illness Date Seen by Provider: Jan 11, 2022 Time Seen by Provider: 17:46 Initial Comments Patient is a 61-year-old female with a history of COPD, coronary artery disease, pancreatitis, alcohol abuse who presents ED with bilateral lower chest pain. Chest pain described as tightness and discomfort. Started about 3 days ago. Believes this was secondary to coughing. Was diagnosed with COVID 2 weeks ago. Reports flulike symptoms which have improved. Started developing a cough and shortness of breath with greenish sputum production over the past several days. Chest pain started about 3 days ago around the lower and occurs with coughing. No radiation to the back. She is not currently on anticoagulants. No recent travels or surgeries or history of PE. She states she quarantine at home. Has taken prednisone in the past. She has been using breathing treatment at home. Patient does wear oxygen 3 L at home currently on 3 L. No current fever, headache, dizziness, visual changes, abdominal pain, vomiting, diarrhea, dysuria, dark tarry stool. Allergies and Home Medications Allergies Coded Allergies: Sulfa (Sulfonamide Antibiotics) (Verified Allergy, Unknown, 09/17/21) codeine (Verified Allergy, Unknown, 09/17/21) prednisone (Verified Allergy, Unknown, 09/17/21) tramadol (Verified Allergy, Unknown, 09/17/21) Patient Home Medication List Home Medication List Reviewed: Yes Albuterol Sulfate (Proair Hfa) 1 Puff Puff, 2 PUFF IH Q4H PRN for SHORTNESS OF BREATH, (Reported) Entered as Reported by: RACHAEL SHARMA on 09/17/21 1539 Atorvastatin Calcium (Atorvastatin Calcium) 20 Mg Tablet, 20 MG PO DAILY, (Reported) Entered as Reported by: RACHAEL SHARMA on 09/17/21 1538 Azithromycin (Azithromycin) 250 Mg Tablet, 250 MG PO UD Prescribed by: RUY DALLAS on 7/4/22 2030 Bismuth Subsalicylate (Pepto-Bismol) 262 Mg/15 Ml Oral.susp, 15 ML PO DAILY PRN for UPSET STOMACH, (Reported) Entered as Reported by: RACHAEL SHARMA on 09/17/21 154 Buspirone HCl (Buspirone HCl) 10 Mg Tablet, 10 MG PO TID, (Reported) Entered as Reported by: RACHAEL SHARMA on 09/17/21 153 Calcium Carbonate (Calcium) 500 Mg Tablet, 500 MG PO DAILY, (Reported) Entered as Reported by: RACHAEL SHARMA on 09/17/21 154 Diphenhydramine HCl (Benadryl Allergy) 25 Mg Tablet, 25 MG PO DAILY PRN for ALLERGIES, (Reported) Entered as Reported by: RACHAEL SHARMA on 09/17/21 154 Duloxetine HCl (Duloxetine HCl) 60 Mg Capsule.dr, 60 MG PO DAILY, (Reported) Entered as Reported by: RACHAEL SHARMA on 09/17/21 153 Gabapentin (Neurontin) 300 Mg Capsule, 300 MG PO TID, (Reported) Entered as Reported by: RACHAEL SHARMA on 09/17/21 153 Guaifenesin (Mucinex) 600 Mg Tab.er.12h, 600 MG PO BID PRN for CONGESTION, (Reported) Entered as Reported by: RACHAEL SHARMA on 09/17/21 154 Hydrocodone/Acetaminophen (Hydrocodone-Acetamin 5-325 mg) 5 Mg-325 Mg Tablet, 1 TAB PO Q6H PRN for PAIN-MODERATE (5-7) Prescribed by: SHANTANU MITCHELL on 11/18/212209 Hydrocodone/Acetaminophen (Hydrocodone-Acetamin 5-325 mg) 5 Mg-325 Mg Tablet, 1 TAB PO Q4H PRN for PAIN-MODERATE (5-7) Prescribed by: RUY DALLAS on 01/11/222038 Ibuprofen (Ibuprofen) 800 Mg Tablet, 800 MG PO TID PRN for PAIN-MILD (1-4), (Re ported) Entered as Reported by: RACHAEL SHARMA on 09/17/21 153 Methocarbamol (Methocarbamol) 750 Mg Tablet, 1,500 MG PO BID, (Reported) Entered as Reported by: RACHAEL SHARMA on 09/17/21 153 Multivitamin (Multi-Vitamin Daily) 1 Each Tablet, 1 EACH PO DAILY, (Reported) Entered as Reported by: RACHAEL SHARMA on 09/17/21 154 Omeprazole (Omeprazole) 20 Mg Capsule.dr, 20 MG PO DAILY, (Reported) Entered as Reported by: RACHAEL SHARMA on 09/17/211537 Oxycodone HCl (Oxycodone HCl) 5 Mg Tablet, 5 MG PO Q4H PRN for PAIN-SEVERE (8- 10) Prescribed by: DAVID MCLAIN on 09/21/21 1258 Potassium Chloride (Potassium Chloride) 20 Meq Tablet.er, 40 MEQ PO DAILY Prescribed by: RUY DALLAS on 01/11/222029 Prednisone (Prednisone) 50 Mg Tab, 50 MG PO DAILY Prescribed by: RUY DALLAS on 01/11/222029 Tiotropium Br/Olodaterol HCl (Stiolto Respimat Inhal [place]) 4 Gm Mist.inhal, 1 PUFF PO DAILY, (Reported) Entered as Reported by: RACHAEL SHARMA on 09/17/211537 Review of Systems Review of Systems Constitutional: No chills, No diaphoresis, No malaise, No weakness EENTM: No Blurred Vision, No Double Vision, No Eye Pain Respiratory: Cough, Shortness of Air Cardiovascular: Chest Pain; Denies Edema Gastrointestinal: Denies Abdominal Pain, Denies Diarrhea, Denies Nausea, Denies Vomiting Genitourinary: Denies Burning, Denies Discharge Musculoskeletal: No back pain, No joint pain Skin: No change in color All Other Systems Reviewed Negative Unless Noted: Yes Past Mnccbuu-Oehqwy-Ytodfo Hx Immunizations Up To Date Tetanus Booster (TDap): Unknown First/Initial COVID19 Vaccinat: NA, Patient refusal Second COVID19 Vaccination Asad: NA, Patient refusal Third COVID19 Vaccination Date: NA, Patient refusal Seasonal Allergies Seasonal Allergies: No Past Medical History Surgery/Hospitalization HX: ANXIETY, DEPRESSION, HLD, CHRONIC PAIN, ULCERS, EMPHYSEMA , I&D Surgeries: Yes Section, Orthopedic Respiratory: Yes COPD, Emphysema Currently Using CPAP: No Currently Using BIPAP: No Cardiac: Yes High Cholesterol, Hypertension Neurological: Yes Headaches /Migraines, Neuropathy Reproductive Disorders: No Genitourinary: No Gastrointestinal: Yes Gastrointestinal Bleed, Ulcer Musculoskeletal: No Endocrine: No HEENT: No Loss of Vision: Denies Hearing Impairment: Denies Cancer: No Psychosocial: Yes Anxiety, Depression Integumentary: No Blood Disorders: No Adverse Reaction/Blood Tranf: No Family Medical History Heart Disease, Cancer Physical Exam Vital Signs Vital Signs - First Documented 01/11/22 01/11/22 17:30 18:28 Temp 36.3 Pulse 102 Resp 16 B/P (MAP) 115/78 (90) Pulse Ox 94 O2 Delivery Room Air O2 Flow Rate 5.00 Capillary Refill : Less Than 3 Seconds Height, Weight, BMI Height: '" Weight: lbs. oz. kg; 21.00 BMI Method: General Appearance: No Apparent Distress, WD/WN HEENT: PERRL/EOMI, TMs Normal, Normal ENT Inspection, Pharynx Normal Neck: Full Range of Motion, Normal Inspection, Non Tender, Supple Respiratory: Normal Breath Sounds, No Accessory Muscle Use, No Respiratory Distress, Other (Bilateral lower chest tenderness. Expiratory wheezing with diminished breath) Cardiovascular: No Edema, No Gallop, No JVD Gastrointestinal: Normal Bowel Sounds, No Organomegaly, No Pulsatile Mass, Non Tender, Soft Extremity: Normal Capillary Refill, Normal Inspection, Normal Range of Motion, Non Tender Neurologic/Psychiatric: Alert, Oriented x3, No Motor/Sensory Deficits, Normal Mood/Affect, food service supervisor II-XII Norm as Tested Skin: Normal Color, Warm/Dry Progress/Results/Core Measures Results/Orders Lab Results Laboratory Tests Test 01/11/22 17:55 01/11/22 20:06 Range/Units White Blood Count 6.9 4.3-11.0 10^3/uL Red Blood Count 4.08 3.80-5.11 10^6/uL Hemoglobin 13.1 11.5-16.0 g/dL Hematocrit 37 35-52 % Mean Corpuscular Volume 90 80-99 fL Mean Corpuscular Hemoglobin 32 25-34 pg Mean Corpuscular Hemoglobin Concent 36 32-36 g/dL Red Cell Distribution Width 13.2 10.0-14.5 % Platelet Count 492 H 130-400 10^3/uL Mean Platelet Volume 9.6 9.0-12.2 fL Immature Granulocyte % (Auto) 1 % Neutrophils (%) (Auto) 79 H 42-75 % Lymphocytes (%) (Auto) 12 12-44 % Monocytes (%) (Auto) 7 0-12 % Eosinophils (%) (Auto) 1 0-10 % Basophils (%) (Auto) 1 0-10 % Neutrophils # (Auto) 5.4 1.8-7.8 10^3/uL Lymphocytes # (Auto) 0.8 L 1.0-4.0 10^3/uL Monocytes # (Auto) 0.5 0.0-1.0 10^3/uL Eosinophils # (Auto) 0.1 0.0-0.3 10^3/uL Basophils # (Auto) 0.1 0.0-0.1 10^3/uL Immature Granulocyte # (Auto) 0.1 0.0-0.1 10^3/uL D-Dimer 1.21 H 0.00-0.49 UG/ML Sodium Level 136 135-145 MMOL/L Potassium Level 2.4 *L 2.8 L 3.6-5.0 MMOL/L Chloride Level 101 98-107 MMOL/L Carbon Dioxide Level 20 L 21-32 MMOL/L Anion Gap 15 H 5-14 MMOL/L Blood Urea Nitrogen 5 L 7-18 MG/DL Creatinine 0.70 0.60-1.30 MG/DL Estimat Glomerular Filtration Rate 100 BUN/Creatinine Ratio 7 Glucose Level 190 H 70-105 MG/DL Calcium Level 10.8 H 8.5-10.1 MG/DL Corrected Calcium 11.0 H 8.5-10.1 MG/DL Magnesium Level 1.5 L 1.6-2.4 MG/DL Total Bilirubin 0.4 0.1-1.0 MG/DL Aspartate Amino Transf (AST/SGOT) 29 5-34 U/L Alanine Aminotransferase (ALT/SGPT) 22 0-55 U/L Alkaline Phosphatase 104 40-136 U/L Troponin I < 0.028 <0.028 NG/ML B-Type Natriuretic Peptide 13.9 <100.0 PG/ML Total Protein 7.3 6.4-8.2 GM/DL Albumin 3.7 3.2-4.5 GM/DL Lipase 511 H 8-78 U/L My Orders Orders - RAY DICK Ekg Tracing (01/11/22 17:43) Cbc With Automated Diff (01/11/22 17:43) Comprehensive Metabolic Panel (01/11/22 17:43) Magnesium (7/4/22 17:43) Troponin I [place] (01/11/22 17:43) Bnp Jeanette (01/11/22 17:43) Fibrin Degradation Products (01/11/22 17:43) Methylprednisolone Sod Succ (Solu-Medrol (01/11/22 17:45) Albuterol/Ipra Inhalation Soln (Duoneb I (01/11/22 17:45) Svn Small Volume Nebulizer (01/11/22 17:43) Iv/Invasive Line Insertion .IV start (01/11/22 17:43) Chest 1 View, Ap/Pa Only (01/11/22 17:48) Ct Angio Chest W (01/11/22 18:26) Potassium Cl 10meq/50ml Ivpb (Kcl 10 Meq (01/11/22 18:30) Potassium Chloride (Tablet) (K Dur Table (01/11/22 18:30) Iohexol Injection (Omnipaque 350 Mg/Ml 1 (01/11/22 18:30) Received Contrast (Hold Metformin- Contr (01/11/22 18:30) Ns (Ivpb) (Sodium Chloride 0.9% Ivpb Bag (01/11/22 18:30) Sodium Chloride Flush (Catheter Flush Sy (01/11/22 18:30) Magnesium Oxide Tablet (Mag Ox Tablet) (01/11/22 19:00) Fentanyl Inj (Sublimaze Injection) (01/11/22 19:08) Hydrocodone/Apap 5/325 Tablet (Lortab 5 (01/11/22 19:15) Potassium (01/11/22 20:00) Lipase (01/11/22 20:56) Magnesium Oxide Tablet (Mag Ox Tablet) (01/11/22 19:54) Medications Given in ED Current Medications Medications Dose Ordered Sig/Oscar Route Start Time Stop Time Status Last Admin Dose Admin Acetaminophen/ Hydrocodone Bitart 1 ea ONCE ONCE PO 01/11/22 19:15 01/11/22 19:16 DC 01/11/22 19:25 1 EA Albuterol/ Ipratropium 3 ml ONCE ONCE INH 01/11/22 17:45 01/11/22 17:46 DC 01/11/22 18:28 3 ML Iohexol 100 ml ONCE ONCE IV 01/11/22 18:30 7/4/22 21:02 DC 01/11/22 19:05 62 ML Magnesium Oxide 400 mg ONCE ONCE PO 01/11/22 19:00 01/11/22 21:02 DC 01/11/22 19:56 400 MG Methylprednisolone Sodium Succinate 125 mg ONCE ONCE IVP 01/11/22 17:45 01/11/22 17:46 DC 01/11/22 17:56 125 MG Potassium Chloride 40 meq ONCE ONCE PO 01/11/22 18:30 01/11/22 18:31 DC 01/11/22 18:59 40 MEQ Potassium Chloride 50 ml @ 50 mls/hr ONCE ONCE IV 01/11/22 18:30 01/11/22 19:29 DC 01/11/22 18:59 50 MLS/HR Sodium Chloride 10 ml NEEDED PRN IV 01/11/22 18:30 01/11/22 21:02 DC 01/11/22 19:05 10 ML Sodium Chloride 100 ml ONCE ONCE IV 01/11/22 18:30 01/11/22 21:02 DC 01/11/22 19:05 80 ML Vital Signs/I&O 01/11/22 01/11/22 01/11/22 17:30 18:28 20:53 Temp 36.3 Pulse 102 73 Resp 16 20 B/P (MAP) 115/78 (90) 125/69 Pulse Ox 94 96 O2 Delivery Room Air Nasal Cannula Room Air O2 Flow Rate 5.00 Blood Pressure Mean: 90 Comment Sinus rhythm, left axis deviation, incomplete right bundle branch block, heart rate 81 bpm, QRS duration 103 MS, QTc 422 MS. Departure Communication (PCP) Patient presents ED with chest wall pain secondary to coughing. COVID diagnosed 2 weeks ago. She denies being treated for Paxlovid or monoclonal antibody. Did not meet criteria for infusion for medication at this time. Patient wears 3 L oxygen. History of COPD. Has an albuterol inhaler at home. She does have chest wall tenderness without epigastric or upper quadrant abdominal tenderness. History of pancreatitis. She states she has a history of alcohol consumption. Denies of any alcohol today. EKG showed sinus rhythm with incomplete right bundle branch block. No ST elevation depression. Cardiac work-up unremarkable. Chest x-ray was unremarkable. Due to recent COVID D-dimer was ordered which was slightly elevated. CT angio chest was negative for pulmonary embolism. Pulmonary nodule noted recommend continue follow-up with further CT. History of smoking. Groundglass opacities likely atypical infection likely residual from COVID. Narrowing of the right mainstem bronchus favored to relate to underlying tracheobronchomalacia. Patient does not see a application integrator. Patient with normal white blood count. Potassium of 2.4 magnesium of 1.5. Patient was given oral magnesium which she does take at home. She states she has a history of low potassium which she had a previous visit in September with low potassium and diagnosed with pancreatitis. She was given IV 10 mill equivalent and oral 40 mill equivalent with improvement to 2.8. Patient lipase was 511. His last lipase at discharge in September was 425. Today's slightly elevated from his last discharge. He denies of any vomiting or has epigastric pain. She states she has been eating grapes, bananas without any pain to her abdomen. Patient maybe developing acute pancreatitis or this may be more chronic. When Patient was admitted her lipase was 1700. Discussed with patient the importance of bowel rest and stick to more clear liquids ice chips for the next 2-3 days and slightly increased diet. She states she has been able to drink and eat without vomiting or any type of pain. Patient was not hypocalcemic. Slightly hyperglycemic at 190. Patient refused IV fluids. Discussed admission for her abnormal lab work. She is requesting to be discharged. Discussed complications that may be result of abnormal electrolytes and elevated lipase. she acknowledges. She will need to recheck these electrolytes and lipase at her appointment on the . Will discharge with 3 days worth of oral potassium 40. She is scheduled to follow-up with her primary on the january. Recommend recheck of her potassium. She has no cardiac dysrhythmias. Chest pain resolved after hydrocodone. Patient Was given DuoNeb and Solu-Medrol with improvement of her symptoms. Her coughing during her stay improved. Improvement of her lung sounds throughout. Oxygen 97% on 3 L which is at her baseline. She is not tachycardic or septic. Normal white blood count. Patient will be discharged with strict follow-up with her primary regarding her potassium and lipase. No abdominal tenderness on palpation. If pain progress or worsen she needs return back to ED for recheck of her symptoms and lipase. return precaution were discussed. Will discharge with short burst steroids, Z-Lui for any other superimposed atypical infections with her COPD and few days worth of pain medication. Impression Primary Impression: COPD exacerbation Additional Impressions: Chest wall pain Hypokalemia Hypomagnesemia Pancreatitis Disposition: 01 HOME, SELF-CARE Condition: Stable Departure-Patient Inst. Decision time for Depature: 20:26 Referrals: BRITTANY NGUYEN DO (PCP/Family) Primary Care Physician Patient Instructions: Atypical Pneumonia (Mycoplasma and Viral) (DC), COPD Exacerbation, Adult ED Scripts Hydrocodone/Acetaminophen (Hydrocodone-Acetamin 5-325 mg) 5 Mg-325 Mg Tablet 1 TAB PO Q4H PRN for PAIN-MODERATE (5-7), #6 TAB Prov: RAY DICK 01/11/22 Potassium Chloride (Potassium Chloride) 20 Meq Tablet.er 40 MEQ PO DAILY for 3 Days, #6 TAB Prov: RAY DICK 01/11/22 Prednisone (Prednisone) 50 Mg Tab 50 MG PO DAILY for 5 Days, #5 TAB Prov: RAY DICK 01/11/22 Azithromycin (Azithromycin) 250 Mg Tablet 250 MG PO UD, #6 TAB TAKE 2 TABLETS ON DAY ONE THEN TAKE 1 TABLET DAILY FOR FOUR MORE DAYS Prov: ARY DICK 01/11/22 RAY DICK Jan 11, 2022 17:48
[2022-01-11 18:05] LABS: BASOPHILS # (AUTO) 0.1 10^3/uL (0.0-0.1); BASOPHILS % (AUTO) 1 % (0-10); EOSINOPHILS # (AUTO) 0.1 10^3/uL (0.0-0.3); EOSINOPHILS % (AUTO) 1 % (0-10); HEMATOCRIT 37 % (35-52); HEMOGLOBIN 13.1 g/dL (11.5-16.0); LYMPHOCYTES # (AUTO) 0.8 10^3/uL (1.0-4.0); LYMPHOCYTES % (AUTO) 12 % (12-44); MEAN CORPUSCULAR HEMOGLOBIN 32 pg (25-34); MEAN CORPUSCULAR HGB CONC 36 g/dL (32-36); MEAN CORPUSCULAR VOLUME 90 fL (80-99); MEAN PLATELET VOLUME 9.6 fL (9.0-12.2); MONOCYTES # (AUTO) 0.5 10^3/uL (0.0-1.0); MONOCYTES % (AUTO) 7 % (0-12); NEUTROPHILS # (AUTO) 5.4 10^3/uL (1.8-7.8); NEUTROPHILS % (AUTO) 79 % (42-75); PLATELET COUNT 492 10^3/uL (130-400); WHITE BLOOD COUNT 6.9 10^3/uL (4.3-11.0)
--- NOTE | 2022-01-11 18:19 | Diagnostic Imaging Report ---
EXAMINATION: Chest 1 view HISTORY: Cough. Shortness of breath. COMPARISON: 09/17/2021. FINDINGS: The lung volumes are normal. No focal consolidation is seen. No large pleural effusion or pneumothorax is seen. The cardiomediastinal silhouette is normal in size and contour. No acute osseous abnormality is seen. IMPRESSION: 1. No acute pleuroparenchymal process. Dictated by: Dictated on workstation # [id number]
[2022-01-11 18:22] LABS: ALBUMIN 3.7 GM/DL (3.2-4.5); CHLORIDE 101 MMOL/L (98-107); SODIUM 136 MMOL/L (135-145)
[2022-01-11 18:23] LABS: CALCIUM 10.8 MG/DL (8.5-10.1)
[2022-01-11 18:24] LABS: GLUCOSE 190 MG/DL (70-105)
[2022-01-11 18:25] LABS: TOTAL PROTEIN 7.3 GM/DL (6.4-8.2)
[2022-01-11 18:26] LABS: BILIRUBIN,TOTAL 0.4 MG/DL (0.1-1.0); CARBON DIOXIDE 20 MMOL/L (21-32); POTASSIUM 2.4 MMOL/L (3.6-5.0)
[2022-01-11 18:28] LABS: ALKALINE PHOSPHATASE 104 U/L (40-136); GFR ESTIMATED 100
[2022-01-11 18:29] LABS: BUN/CREATININE RATIO 7
[2022-01-11] MEDS ORDERED: IOHEXOL 350 MG/ML 100 ML (OMNIPAQUE 350) VIAL IV ONE (18:30)
[2022-01-11] MEDS ORDERED: CATHETER FLUSH 10 ML SYR IV PRN (18:30)
[2022-01-11] MEDS ORDERED: HOLD METFORMIN - RECEIVED CONTRAST 20 ML VIAL IV SCH (18:30)
[2022-01-11] MEDS ORDERED: POTASSIUM CL 10MEQ/50ML IVPB 50 ML IV ONE (18:30)
[2022-01-11] MEDS ORDERED: NS 100 ML (IVPB) BAG IV ONE (18:30)
[2022-01-11] MEDS ORDERED: KCL 20 MEQ TAB (K-DUR) PO ONE (18:30)
[2022-01-11 18:31] LABS: ALANINE AMINOTRANSFERASE 22 U/L (0-55); MAGNESIUM 1.5 MG/DL (1.6-2.4)
[2022-01-11] MEDS ORDERED: MAGNESIUM OXIDE (MAG-OX)400 MG TAB PO ONE (19:00)
[2022-01-11] MEDS ORDERED: fentaNYL INJ 100 MCG/2 ML AMP IVP STA (19:08)
[2022-01-11] MEDS ORDERED: HYDROcodone/APAP 5 MG/325 MG (LORTAB) TAB PO ONE (19:15)
--- NOTE | 2022-01-11 19:37 | Diagnostic Imaging Report ---
PROCEDURE: CT angiography of the chest with contrast. TECHNIQUE: Multiple contiguous axial images were obtained through the chest after uneventful bolus administration of intravenous contrast. 3D reconstructed CTA MIP acquisitions were also performed. Auto Exposure Controls were utilized during the CT exam to meet ALARA standards for radiation dose reduction. INDICATION: Chest pain, shortness of air COMPARISON: Radiographs from the same date FINDINGS: No significant adenopathy within the chest. No aneurysmal dilatation or dissection of the thoracic aorta. The heart is within normal limits in size. No pericardial effusion. Small fat-containing diaphragmatic hernias are identified bilaterally and posteriorly. No significant pleural effusion. No pneumothorax. Peripheral groundglass opacity is noted within the right upper lobe, measuring 2.4 cm. Minimal background emphysematous changes. Additional minimal patchy groundglass opacities are seen within the right upper lobe. A 0.5 cm right middle lobe pulmonary nodule. Minimal secretions within the trachea. Narrowing of the right mainstem bronchus without discrete mass lesion. No significant filling defect within the central or segmental pulmonary arteries. Calcified granuloma within the right lung base. Fatty infiltration of the liver. Visualized upper abdomen is otherwise unremarkable. Mild superior endplate compression deformity of T8 is identified of uncertain chronicity. No additional acute osseous abnormality. IMPRESSION: No significant pulmonary embolus. Age-indeterminate mild superior endplate compression deformity of T8. It is favored that this is chronic in nature. Recommend correlation for focal pain at this location. A 2.4 cm groundglass opacity within the right upper lobe with additional minimal adjacent groundglass opacities. This is favored to relate to an atypical infectious process, such as COVID 19. However, a follow-up CT of the chest is recommended in 6 months to reevaluate as neoplasm is not excluded. Narrowing of the right mainstem bronchus, favored to relate to underlying tracheobronchomalacia. Significant fatty infiltration of the liver. Minimal background emphysematous changes. Dictated by: Dictated on workstation # [id number]
[2022-01-11] MEDS ORDERED: MAGNESIUM OXIDE (MAG-OX)400 MG TAB ONE (19:54)
[2022-01-11] MEDS ORDERED: POTA-51 PO (20:30)
[2022-01-11] MEDS ORDERED: PRD50T PO (20:30)
[2022-01-11] MEDS ORDERED: AZIT250T12 PO (20:30)
[2022-01-11] MEDS ORDERED: ACHD5005 PO (20:39)
[2022-01-11 20:53] VITALS: BP 125/69
== END 2022-01-11 21:01 | disposition home or self-care (01) ==
LOC: EDUNIT# 17:20 → ER 17:22
DX: J43.9 Emphysema, unspecified (principal); K85.90 Acute pancreatitis without necrosis or infection, unspecified; E87.6 Hypokalemia; E83.42 Hypomagnesemia; I45.10 Unspecified right bundle-branch block; R73.9 Hyperglycemia, unspecified; Z86.16 Personal history of COVID-19; Z99.81 Dependence on supplemental oxygen; Z87.891 Personal history of nicotine dependence; Z79.899 Other long term (current) drug therapy; Z28.310 Unvaccinated for COVID-19
CPT/HCPCS: 36415; 71045; 71275; 80053; 83690; 83735; 83880; 84132; 84484; 85025; 85379; 93005; 94640

== ENCOUNTER → 2022-04-07 | Outpatient (CLI) | payer MEDICARE, MEDICAID ==
[~2022-04-07] MED LIST changes: +POTA-51 PO; +PRD50T PO
[2022-04-07 10:11] VITALS: BP 170/116
--- NOTE | 2022-04-07 14:08 | Cardiology Stress Test Report ---
Stress Test Report Date of Procedure/Referring: Date of Procedure: Apr 07, [address] DO Admitting Physician Admitting Physician: Attending Physician: Lane Brooks DO Indications: CP Baseline Heart Rate: 61 Baseline Blood Pressure: Blood Pressure Systolic: 170 Blood Pressure Diastolic: 116 Baseline EKG: Baseline EKG: NSR Summary/Conclusion: Summary: In summary, the patient started exercising with a baseline heart rate, blood pressure and EKG mentioned above Patient was able to exercise for a total of 4minutes on Rasta protocol, METs 5.8 Maximum heart rate 106 Maximum blood pressure 196/106 Stress EKG, Minimal nondiagnostic changes Recovery EKG , Return to baseline Conclusion: 1. Poor exercise tolerance a total of 4 minutes/5.8 METS on standard Rasta protocol achieving only 65% of maximal expected heart rate. Patient was unable to exercise beyond that point due to severe shortness of breath and deconditioning 2. Nondiagnostic EKG changes with exercise with severe hypertensive response to exercise with peak blood pressure 196/[address] Brooks and we will schedule the patient for Lexiscan Myoview stress test NANCY NUNEZ MD Apr 07, 2022 14:07
== END ==
LOC: CARD 09:50
PROVIDERS: ATTEND Pediatrics
DX: I25.118 Atherosclerotic heart disease of native coronary artery with other forms of angina pectoris (principal)
CPT/HCPCS: 93017

== ENCOUNTER → 2022-05-12 | Outpatient (CLI) | payer MEDICARE, MEDICAID ==
[~2022-05-12] VITALS: Ht 172 cm; Wt 67.0 kg
[~2022-05-12] MED LIST changes: +ALBU8.5H6 IH; +REGADENOSON 0.4 MG/5 ML SYR (LEXISCAN) IV ONE; -RT-ALBUINH IH
[2022-05-12] MEDS: CATHETER FLUSH 10 ML SYR IVP PRN ×2 (11:22→13:04)
[2022-05-12 13:01] VITALS: BP 123/74
--- NOTE | 2022-05-12 14:51 | Cardiology Stress Test Report ---
Stress Test Report Date of Procedure/Referring: Date of Procedure: May 12, 2022 PCP Brittany Brooks DO Admitting Physician Admitting Physician: Attending Physician: Kassandra Easley Baseline Heart Rate: 80 Baseline Blood Pressure: Blood Pressure Systolic: 123 Blood Pressure Diastolic: 74 Baseline Vitals Vital Signs Date Time Temp Pulse Resp B/P (MAP) Pulse Ox O2 Delivery O2 Flow Rate FiO2 05/12/22 13:01 86 20 123/74 (90) 93 Room Air Baseline EKG: Baseline EKG: NSR Summary After explaining the procedure to the patient, she signed a consent and then brought to the stress nuclear laboratory. Patient received 0.4 mg Lexiscan for stress test, ECG, heart rate and blood pressure were monitored continuously. Resting and stress dose of radio tracer were injected, imaging was acquired and reviewed in short axis, horizontal long axis and vertical long axis views. TID: 0.9 SSS: 5 SDS: 3 EF: 76 1. Patient tolerated Lexiscan well 2. Breast attenuation with mild decrease uptake at the basal to mid anterior wall with mild reversibility, most probably secondary to breast attenuation. Overall there is no significant ischemia or infarction on SPECT images 3. Normal left ventricular size, ejection fraction 76% Copy Copies To 1: BRITTANY BROOKS BASHAR J MD May 12, 2022 14:51
== END ==
LOC: CARD 11:08
PROVIDERS: ATTEND Physician Assistant
DX: R07.9 Chest pain, unspecified (principal)
CPT/HCPCS: 78452; 93017; A9502

== ENCOUNTER 2022-05-19 20:33 | Emergency (ER) | payer OTHER, MEDICAID ==
[~2022-05-19] VITALS: Ht 172.7 cm; Wt 70.3 kg
[~2022-05-19 20:33] MED LIST changes: -REGADENOSON 0.4 MG/5 ML SYR (LEXISCAN) IV ONE
[2022-05-19] MEDS ORDERED: LACTATED RINGERS 1,000 ML IV ONE (21:00)
[2022-05-19] MEDS ORDERED: ONDANSETRON 4 MG/2 ML (SDV) Z0FRAN IVP ONE (21:00)
[2022-05-19 21:09] LABS: BASOPHILS # (AUTO) 0.1 10^3/uL (0.0-0.1); BASOPHILS % (AUTO) 1 % (0-10); EOSINOPHILS # (AUTO) 0.2 10^3/uL (0.0-0.3); EOSINOPHILS % (AUTO) 2 % (0-10); HEMATOCRIT 39 % (35-52); HEMOGLOBIN 13.2 g/dL (11.5-16.0); LYMPHOCYTES # (AUTO) 2.9 10^3/uL (1.0-4.0); LYMPHOCYTES % (AUTO) 35 % (12-44); MEAN CORPUSCULAR HEMOGLOBIN 32 pg (25-34); MEAN CORPUSCULAR HGB CONC 34 g/dL (32-36); MEAN CORPUSCULAR VOLUME 96 fL (80-99); MONOCYTES # (AUTO) 0.4 10^3/uL (0.0-1.0); MONOCYTES % (AUTO) 5 % (0-12); NEUTROPHILS # (AUTO) 4.6 10^3/uL (1.8-7.8); NEUTROPHILS % (AUTO) 56 % (42-75); PLATELET COUNT 323 10^3/uL (130-400); WHITE BLOOD COUNT 8.2 10^3/uL (4.3-11.0)
[2022-05-19 21:17] LABS: ALBUMIN 4.2 GM/DL (3.2-4.5); POTASSIUM 3.8 MMOL/L (3.6-5.0)
[2022-05-19 21:18] LABS: CALCIUM 9.6 MG/DL (8.5-10.1)
[2022-05-19 21:20] LABS: TOTAL PROTEIN 6.9 GM/DL (6.4-8.2)
[2022-05-19 21:22] LABS: BILIRUBIN,TOTAL 0.2 MG/DL (0.1-1.0)
[2022-05-19 21:23] LABS: CREATININE SERUM 1.07 MG/DL (0.60-1.30)
--- NOTE | 2022-05-19 21:31 | Diagnostic Imaging Report ---
PROCEDURE: CT head, face, and cervical spine without contrast. TECHNIQUE: Multiple contiguous axial images were obtained through the head, neck, and facial bones without the use of intravenous contrast. Sagittal and coronal reformations through the cervical spine and facial bones were also performed. Auto Exposure Controls were utilized during the CT exam to meet ALARA standards for radiation dose reduction. INDICATION: Fall with injuries to head, face and cervical region. CT HEAD: CT images of the head were obtained. FINDINGS: Ventricles and sulci are within normal limits for size. There is no intracranial hemorrhage identified. There is no abnormal mass effect or shift of midline structures. IMPRESSION: Unremarkable CT of the head. MAXILLOFACIAL CT: Globes are intact without evidence of intraorbital hematoma. There is rightward deviation of nasal bones which may be related to old injury. No definite acute fracture is seen. There is however probable acute fracture along the inferior nasal spine to the left of midline. No paranasal sinus air-fluid level is identified. There are degenerative findings at the temporomandibular joints. IMPRESSION: Several chronic findings with probable acute nondisplaced fracture to left of midline at the inferior nasal spine. CT CERVICAL SPINE: There is loss of cervical lordosis. Type II odontoid fracture is seen without significant displacement. Fracture margins appear fairly smooth indicating probable nonacute in nature. No other acute cervical spinal fracture is identified. IMPRESSION: 1. Probable nonacute type II odontoid fracture. Clinical correlation with previous history would be useful as this type of fracture is considered unstable. 2. Otherwise, no definite acute cervical spinal abnormality is seen. Dictated by: Dictated on workstation # [id number]
--- NOTE | 2022-05-19 21:32 | Diagnostic Imaging Report ---
INDICATION: Right knee pain. EXAMINATION: AP, oblique and lateral views of the right knee were obtained. FINDINGS: No acute fracture or dislocation is identified. No abnormal lytic or sclerotic focus is seen, and there is no radiopaque foreign body. IMPRESSION: No acute abnormality. Dictated by: Dictated on workstation # [id number]
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
[2022-05-20] MEDS ORDERED: LACTATED RINGERS 1,000 ML IV ONE ×2 (00:08→00:15)
[2022-05-20 01:12] LABS: BILIRUBIN,URINE NEGATIVE (NEGATIVE); CLARITY,URINE CLEAR; COLOR,URINE YELLOW; GLUCOSE, URINE (UA) NEGATIVE (NEGATIVE); KETONES,URINE NEGATIVE (NEGATIVE); LEUKOCYTE ESTERASE ,URINE NEGATIVE (NEGATIVE); NITRITE,URINE NEGATIVE (NEGATIVE); PH,URINE 6.5 (5-9); PROTEIN,URINE NEGATIVE (NEGATIVE)
[2022-05-20 01:22] LABS: BACTERIA,URINE NEGATIVE /HPF; SQUAMOUS EPITHELIAL CELL,UR 0-2 /HPF
[2022-05-20 01:23] LABS: AMPHETAMINE SCREEN, URINE NEGATIVE (NEGATIVE); BARBITURATE SCREEN URINE NEGATIVE (NEGATIVE); BENZODIAZEPINES SCREEN URINE NEGATIVE (NEGATIVE); CANNABINOID SCREEN, URINE NEGATIVE (NEGATIVE); COCAINE SCREEN URINE NEGATIVE (NEGATIVE); METHADONE STAT NEGATIVE (NEGATIVE); OPIATE SCREEN URINE NEGATIVE (NEGATIVE); OXYCODONE STAT NEGATIVE (NEGATIVE); PROPOXYPHENE STAT NEGATIVE (NEGATIVE); TRICYCLIC ANTIDEPRESSANTS SCRE NEGATIVE (NEGATIVE)
[2022-05-20] MEDS ORDERED: KETOROLAC 30 MG/ML VIAL IVP ONE (04:45)
[2022-05-20 05:33] VITALS: BP 107/80
== END 2022-05-20 09:42 | disposition short-term general hospital (02) ==
LOC: EDUNIT# 20:33 → ER 20:34
DX: S12.110A Anterior displaced Type II dens fracture, initial encounter for closed fracture (principal); S02.2XXA Fracture of nasal bones, initial encounter for closed fracture; S00.81XA Abrasion of other part of head, initial encounter; S80.211A Abrasion, right knee, initial encounter; F10.129 Alcohol abuse with intoxication, unspecified; F17.210 Nicotine dependence, cigarettes, uncomplicated; Z28.310 Unvaccinated for COVID-19; W18.30XA Fall on same level, unspecified, initial encounter
CPT/HCPCS: 70450; 70486; 72125; 73562; 80053; 80306; 81000; 85025; 99285; G0480; 36415; 80320

== ENCOUNTER → 2022-06-14 | Outpatient (CLI) | payer OTHER, MEDICAID ==
--- NOTE | 2022-06-14 16:39 | Diagnostic Imaging Report ---
PROCEDURE: MR imaging cervical spine without contrast. TECHNIQUE: Multiplanar, multisequence MR imaging of the cervical spine was performed without contrast. INDICATION: Neck pain. COMPARISON: CT cervical performed on 05/19/2022. FINDINGS: A bony defect in the odontoid is again identified although is more discrete on earlier CT. The adjacent bone shows no marrow edema and this may be a chronic type II defect. The tip shows no displacement or angulation. There is no paraspinal hemorrhage, edema, or acute fluid collection. Cervical spinal cord shows no edema or compression. Its volume, morphology, and signal intensity are normal. There are degenerative changes to the mid to lower cervical spine without significant resultant canal stenosis. At C3-C4, there is moderate right and mild to moderate left foraminal narrowing. At C4-C5, there is moderate to severe left and mild to moderate right foraminal narrowing. At C5-C6, there is moderate biforaminal stenosis. IMPRESSION: The known bony defect, consistent with a type II odontoid fracture, is again seen with no evidence of displacement or angulation of the tip. No marrow edema and no paraspinal hemorrhage, edema, or acute fluid collection. No acute bony injury and no evidence for ligamentous disruption or listhesis. Chronic degenerative changes with multilevel mid to lower cervical foraminal stenoses noted with normal spinal cord. Dictated on workstation # [id number]
== END ==
LOC: RAD 13:37
PROVIDERS: ATTEND Pediatrics
DX: M47.812 Spondylosis without myelopathy or radiculopathy, cervical region (principal); M48.02 Spinal stenosis, cervical region
CPT/HCPCS: 72141

== ENCOUNTER 2022-07-28 19:48 | Inpatient (IN) | payer OTHER, MEDICAID ==
[~2022-07-28] VITALS: Ht 172 cm; Wt 60.2 kg
[~2022-07-28 19:48] MED LIST changes: +TIOT4MIS3 INH; -TIOT4MIS3 PO
--- OUTSIDE RECORDS SUMMARY | 2022-07-28 21:43 | XMS REPORT | Clinical Summary ---
Author Author [facility] Organization [facility] Address Unknown Phone Unavailable Care Team Providers Care Pitching Coach Name Role Phone Teofilo Romano MD PCP Source Comments Some departments are not documenting in the electronic medical record. If you d o not see the information that you expected, contact Release of Information in [facility] Information Management department at [phone] for further assistan ce in locating additional records.[facility] Allergies Comments Active Allergy Reactions [...] wheezing, # 8 gm, 6 Refill(s), Pharmacy: [facility], Aerosol, 172, cm, 10/22/20 15:57:00 [...] Active fluticasone propionate Inhale 1 puff 0 07/27/2 02 (FLOVENT HFA) 110 by mouth into [...] HOURS, # 4 gm, 5 Refill(s), Pharmacy: [facility], 172, cm, 10/22/20 15:57:00 CDT, Height/Length Dosing, 69, kg, 10/22/20 15:57:00 CDT, Weight Dosing Active Problems Not on file Social History Date Tobacco Use Types Packs/Day Years Used Smoking Tobacco: Some Cigarettes Days Smokeless Tobacco: Never Comments Alcohol Use Standard Drinks/Week Yes 2 (1 standard drink = 0.6 o z pure alcohol) Sex Assigned at Date Recorded Female 06/10/2021 10:14 AM IN HOME SALES CONSULTANT Obstetrics History Last Filed Vital Signs Reading Time Taken Comments Vital Sign - - Blood Pressure - - Pulse - - Temperature 18 06/10/2021 10:14 AM IN HOME SALES CONSULTANT Respiratory Rate - - Oxygen Saturation - - Inhaled Oxygen Concentration 69.4 kg (153 lb) 06/10/2021 10:14 AM IN HOME SALES CONSULTANT Weight 172.7 cm (5' 8") 06/10/2021 10:14 AM IN HOME SALES CONSULTANT Height 23.26 06/10/2021 10:14 AM IN HOME SALES CONSULTANT Body Mass Index Plan of Treatment Health Maintenance Due Date Last Done Comments COVID-19 VACCINE (#1) 02/25/1961 HIV SCREENING 1977 DTAP/TDAP VACCINES (1 - 1980 Tdap) HEPATITIS C SCREENING 1980 PHYSICAL (COMPREHENSIVE) 1980 EXAM CERVICAL CANCER SCREENING 1983 BREAST CANCER SCREENING 2002 COLORECTAL CANCER 2007 SCREENING SHINGLES RECOMBINANT 2012 VACCINE (1 of 2) INFLUENZA VACCINE (#1) 2022 04/27/2019 DEPRESSION SCREENING 07/11/2022 Results Not on filefrom Last 3 Months Insurance Type Payer Benefit Subscriber ID Effective Phone Address Plan / Dates Group Indemnity [facility] [id number] 2021-P [phone] [address] [address] [place] [address] [address] [place] (Home) [place] [address] Care Teams Start Date End Date Pitching Coach Relationship Specialty 06/08/21 Teofilo Romano MD PCP - General Pediatrics [address] [place] [address]
[2022-07-28 22:08] VITALS: BP 156/83
[2022-07-28] MEDS: NS IV 1000 ML 1,000 ML IV SCH (22:29)
[2022-07-28] MEDS: ZOLPIDEM 5 MG (AMBIEN) TAB PO SCH (22:35)
[2022-07-28] MEDS: ONDANSETRON 4 MG/2 ML (SDV) Z0FRAN IVP PRN (22:35)
[2022-07-28] MEDS: morphine INJ 4 MG/ML 1 ML (VIAL/SYRINGE) IVP PRN (22:37)
[2022-07-29 00:06] VITALS: BP 172/81
[2022-07-29] MEDS: morphine INJ 4 MG/ML 1 ML (VIAL/SYRINGE) IVP PRN ×7 (00:38→21:13)
[2022-07-29 04:10] VITALS: BP 169/79
[2022-07-29] MEDS: ONDANSETRON 4 MG/2 ML (SDV) Z0FRAN IVP PRN ×3 (04:49→21:12)
[2022-07-29] MEDS: NS IV 1000 ML 1,000 ML IV SCH ×4 (04:49→22:24)
[2022-07-29 05:47] LABS: BASOPHILS % (AUTO) 0 % (0-10); EOSINOPHILS # (AUTO) 0.1 10^3/uL (0.0-0.3); EOSINOPHILS % (AUTO) 1 % (0-10); HEMATOCRIT 38 % (35-52); HEMOGLOBIN 13.4 g/dL (11.5-16.0); LYMPHOCYTES # (AUTO) 0.9 10^3/uL (1.0-4.0); LYMPHOCYTES % (AUTO) 10 % (12-44); MEAN CORPUSCULAR HEMOGLOBIN 31 pg (25-34); MEAN CORPUSCULAR HGB CONC 36 g/dL (32-36); MEAN CORPUSCULAR VOLUME 87 fL (80-99); MEAN PLATELET VOLUME 10.1 fL (9.0-12.2); MONOCYTES # (AUTO) 0.7 10^3/uL (0.0-1.0); MONOCYTES % (AUTO) 8 % (0-12); NEUTROPHILS # (AUTO) 6.8 10^3/uL (1.8-7.8); NEUTROPHILS % (AUTO) 80 % (42-75); PLATELET COUNT 168 10^3/uL (130-400); WHITE BLOOD COUNT 8.6 10^3/uL (4.3-11.0)
[2022-07-29 06:06] LABS: ALBUMIN 4.1 GM/DL (3.2-4.5); POTASSIUM 2.8 MMOL/L (3.6-5.0)
[2022-07-29 06:07] LABS: CALCIUM 8.8 MG/DL (8.5-10.1)
[2022-07-29 06:10] LABS: BILIRUBIN,TOTAL 0.6 MG/DL (0.1-1.0)
[2022-07-29 06:12] LABS: CREATININE SERUM 0.61 MG/DL (0.60-1.30)
[2022-07-29 08:00] VITALS: BP 140/76
[2022-07-29] MEDS: ENOXAPARIN 40 MG/0.4 ML (LOVENOX) SYR SC SCH (08:16)
[2022-07-29 11:58] VITALS: BP 131/73
--- NOTE | 2022-07-29 13:58 | History & Physical ---
ALICE CRAWFORD 07/29/22 1358: History of Present Illness History of Present Illness Reason for visit/HPI Ms. Peace is a 61 y/o female with a PMHx of pancreatitis, COPD, HLD, and alcohol use disorder who presented to [facility] with epigastric abdominal pain. Patient was transferred and admitted to [facility] to the Hospitalist service for management of acute pancreatitis. During the encounter this morning the patient reports she began experiencing sharp epigastric pain 2 nights ago. Patient states the pain progressively worsened, ultimately causing her to present to the ED. Patient reports a previous hospitalization months ago for management of pancreatitis. Patient reports 2-3 nights ago the patient visited her sister and had 3-4 shots of alcohol. Patient denies alcohol use since. Per nursing report, the patient has been up to the sink drinking water. Patient is agreeable to begin trying ice chips and advancing clear liquids as tolerated. Date of Admission Jul 28, 2022 at 21:41 Date Seen by a Provider: Jul 29, 2022 Time Seen by a Provider: 08:30 I consulted on this patient on 07/29/22 13:51 Attending Physician Brittany Brooks DO Admitting Physician Admitting Physician: Marcela Uribe MD Attending Physician: Marcela Uribe MD Consult Allergies and Home Medications Allergies Coded Allergies: Sulfa (Sulfonamide Antibiotics) (Verified Allergy, Unknown, 09/17/21) codeine (Verified Allergy, Unknown, 09/17/21) prednisone (Verified Allergy, Unknown, 09/17/21) tramadol (Verified Allergy, Unknown, 09/17/21) Patient Home Medication List Home Medication List Reviewed: Yes Albuterol Sulfate (Ventolin Hfa) 90 Mcg Hfa.aer.ad, 2 PUFF IH Q4H PRN for SHORTNESS OF BREATH, (Reported) Entered as Reported by: RACHAEL SHARMA on 09/17/21 1539 Last Action: Reviewed Atorvastatin Calcium (Atorvastatin Calcium) 40 Mg Tablet, 40 MG PO DAILY, (Reported) Entered as Reported by: BRITTANY TRIANA on 07/29/22 1430 Last Action: Reviewed Buspirone HCl (Buspirone HCl) 15 Mg Tablet, 15 MG PO TID, (Reported) Entered as Reported by: BRITTANY TRIANA on 07/29/22 1430 Last Action: Reviewed Duloxetine HCl (Duloxetine HCl) 60 Mg Capsule., 60 MG PO DAILY, (Reported) Entered as Reported by: RACHAEL SHARMA on 09/17/211537 Last Action: Converted Gabapentin (Neurontin) 300 Mg Capsule, 300 MG PO TID, (Reported) Entered as Reported by: RACHAEL SHARMA on 09/17/211537 Last Action: Continued Gabapentin (Gabapentin) 100 Mg Capsule, 100 MG PO TID, (Reported) Entered as Reported by: BRITTANY TRIANA on 07/29/221429 Last Action: Continued Ibuprofen (Ibuprofen) 800 Mg Tablet, 800 MG PO TID PRN for PAIN-MILD (1-4), (Reported) Entered as Reported by: ARCHAEL SHARMA on 09/17/211537 Last Action: Reviewed Ipratropium/Albuterol Sulfate (Iprat-Albut 0.5-3(2.5) mg/3 ml) 0.5 Mg-3 Mg (2.5 Mg Base)/3 Ml Ampul.neb, 3 ML NEB Q6H PRN for SHORTNESS OF BREATH, (Reported) Entered as Reported by: BRITTANY TRIANA on 07/29/221429 Last Action: Reviewed Methocarbamol (Methocarbamol) 750 Mg Tablet, 750 MG PO TID PRN for MUSCLE SPASMS, (Reported) Entered as Reported by: RACHAEL SHARMA on 09/17/211537 Last Action: Reviewed Multivitamin (Multi-Vitamin Daily) 1 Each Tablet, 1 EACH PO DAILY, (Reported) Entered as Reported by: RACHAEL SHARMA on 09/17/211542 Last Action: Reviewed Omeprazole (Omeprazole) 20 Mg Capsule., 20 MG PO DAILY, (Reported) Entered as Reported by: RACHAEL SHARMA on 09/17/211537 Last Action: Continued Propranolol HCl (Propranolol HCl) 80 Mg Tablet, 80 MG PO DAILY, (Reported) Entered as Reported by: BRITTANY TRIANA on 07/29/221429 Last Action: Converted Sumatriptan Succinate (Sumatriptan Succinate) 50 Mg Tablet, 50 MG PO UD PRN for HEADACHE, (Reported) Entered as Reported by: BRITTANY TRIANA on 07/29/221429 Last Action: Reviewed Tiotropium Br/Olodaterol HCl (Stiolto Respimat Inhal [place]) 2.5 Mcg-2.5 Mcg/Actuation Mist.inhal, 2 PUFF INH DAILY, (Reported) Entered as Reported by: RACHAEL SHARMA on 09/17/211537 Last Action: Edited Topiramate (Topiramate) 50 Mg Tablet, 50 MG PO DAILY, (Reported) Entered as Reported by: BRITTANY TRIANA on 07/29/22 1430 Last Action: Converted Discontinued Medications Atorvastatin Calcium (Atorvastatin Calcium) 20 Mg Tablet, 20 MG PO DAILY, (Reported) Discontinued Reason: No Longer Taking Entered as Reported by: RACHAEL SHARMA on 09/17/211537 Last Action: Discontinued Azithromycin (Azithromycin) 250 Mg Tablet, 250 MG PO UD Discontinued Reason: No Longer Taking Prescribed by: RUY DALLAS on 01/11/22 2030 Last Action: Discontinued Bismuth Subsalicylate (Pepto-Bismol) 262 Mg/15 Ml Oral.susp, 15 ML PO DAILY PRN for UPSET STOMACH, (Reported) Discontinued Reason: No Longer Taking Entered as Reported by: RACHAEL SHARMA on 09/17/211541 Last Action: Discontinued Buspirone HCl (Buspirone HCl) 10 Mg Tablet, 10 MG PO TID, (Reported) Discontinued Reason: No Longer Taking Entered as Reported by: RACHAEL SHARMA on 09/17/211537 Last Action: Discontinued Calcium Carbonate (Calcium) 500 Mg Tablet, 500 MG PO DAILY, (Reported) Discontinued Reason: No Longer Taking Entered as Reported by: RACHAEL SHARMA on 09/17/211541 Last Action: Discontinued Diphenhydramine HCl (Benadryl Allergy) 25 Mg Tablet, 25 MG PO DAILY PRN for ALLERGIES, (Reported) Discontinued Reason: No Longer Taking Entered as Reported by: RACHAEL SHARMA on 09/17/21 154 Last Action: Discontinued Guaifenesin (Mucinex) 600 Mg Tab.er.12h, 600 MG PO BID PRN for CONGESTION, (Reported) Discontinued Reason: No Longer Taking Entered as Reported by: RACHAEL SHARMA on 09/17/211539 Last Action: Discontinued Hydrocodone/Acetaminophen (Hydrocodone-Acetamin 5-325 mg) 5 Mg-325 Mg Tablet, 1 TAB PO Q6H PRN for PAIN-MODERATE (5-7) Discontinued Reason: No Longer Taking Prescribed by: SHANTANU MITCHELL on 11/18/212209 Last Action: Discontinued Hydrocodone/Acetaminophen (Hydrocodone-Acetamin 5-325 mg) 5 Mg-325 Mg Tablet, 1 TAB PO Q4H PRN for PAIN-MODERATE (5-7) Discontinued Reason: No Longer Taking Prescribed by: RUY DALLAS on 01/11/222038 Last Action: Discontinued Oxycodone HCl (Oxycodone HCl) 5 Mg Tablet, 5 MG PO Q4H PRN for PAIN-SEVERE (8- 10) Discontinued Reason: No Longer Taking Prescribed by: DAVID MCLAIN on 09/21/21 125 Last Action: Discontinued Potassium Chloride (Potassium Chloride) 20 Meq Tablet.er, 40 MEQ PO DAILY Discontinued Reason: No Longer Taking Prescribed by: RUY DALLAS on 01/11/222029 Last Action: Discontinued Prednisone (Prednisone) 50 Mg Tab, 50 MG PO DAILY Discontinued Reason: No Longer Taking Prescribed by: RUY DALLAS on 01/11/222029 Last Action: Discontinued Past Nfefjil-Shfhuc-Fxewtm Hx Patient Social History Tobacco Use?: Yes Tobacco type used: Cigarettes Smoking Status: Current Everyday Smoker (2 cigarettes per day) Smokeless Tobacco Frequency: Never a User Use of E-Cig and/or Vaping dev: No Substance use?: No Alcohol Use?: Yes Alcohol Frequency: Daily Pt feels they are or have been: Unable to obtain Immunizations Up To Date First/Initial COVID19 Vaccinat: NA, Patient refusal Second COVID19 Vaccination Asad: NA, Patient refusal Tetanus Booster (TDap): Unknown Hepatitis A: No Hepatitis B: No Seasonal Allergies Seasonal Allergies: No Current Status status: No status: No Advance Directives: No Communicates: Verbally Primary Language: Mohawk Preferred Spoken Language: Mohawk Implanted or Applied Medical D: None Past Medical History Surgeries: Section, Orthopedic COPD, Emphysema Currently Using CPAP: No Currently Using BIPAP: No High Cholesterol, Hypertension Headaches /Migraines, Neuropathy Gastrointestinal Bleed, Ulcer Fractures Loss of Vision: Denies Hearing Impairment: Denies Anxiety, Depression Blood Disorders: No Adverse Reaction/Blood Tranf: No Family Medical History Heart Disease, Cancer Review of Systems Constitutional: malaise Respiratory: No cough; short of breath Cardiovascular: chest pain; No edema Gastrointestinal: abdominal pain (epigastric pain) Musculoskeletal: no symptoms reported Skin: no symptoms reported Psychiatric/Neurological: Headache Physical Exam Vital Signs Vital Signs - First Documented 07/28/22 22:08 Temp 36.5 Pulse 71 Resp 19 B/P (MAP) 156/83 (107) Pulse Ox 97 O2 Delivery Room Air Capillary Refill : Height, Weight, BMI Height: '" Weight: lbs. oz. kg; 20.34 BMI Method: General Appearance: Mild Distress Respiratory: Lungs Clear, No Accessory Muscle Use, No Respiratory Distress, Decreased Breath Sounds (bilaterally) Cardiovascular: Regular Rate, Rhythm, No Murmur Gastrointestinal: Normal Bowel Sounds, Soft, Tenderness (epigastric tenderness with palpation) Extremity: No Pedal Edema Neurologic/Psychiatric: Alert Skin: Normal Color, Warm/Dry Assessment/Plan Assessment and Plan Problems: (1) Hyponatremia Status: Acute Assessment & Plan: 07/29: -Na 129, likely secondary to hypovolemia. Monitor Na with AM BMP (2) Hypokalemia Status: Acute Assessment & Plan: 07/29: -K 2.8. Replace with 40meq with KCl PO or IV with fluids -Monitor with AM BMP (3) Pancreatitis Status: Acute Qualifiers: Assessment & Plan: 07/29: -Pancreatitis likely secondary to alcohol use disorder. -NPO -> advance to clear liquids as tolerated -Pain management -> taper down as tolerated. Morphine 2mg Q2H PRN IVP -AM Mg and Phosphorus -Elevated lipase at [facility] -Previous hospitalizations for pancreatitis secondary to alcohol use -Patient has a PMHx of HLD - lipid panel -IVF - NaCl -Zofran 8mg IVP Q6H PRN for nausea -Protonix 20mg IV qd (4) COPD (chronic obstructive pulmonary disease) Status: Chronic Qualifiers: Assessment & Plan: 07/29: -PMHx of emphysema -Resume albuterol 3ml INH PRN (5) HLD (hyperlipidemia) Status: Chronic Qualifiers: Qualified Codes: E78.5 - Hyperlipidemia, unspecified Assessment & Plan: 07/29: -PMHx of HLD -AM lipid panel to evaluate if potential etiology of pancreatitis -Resume atorvastatin 20mg PO qd once tolerating regular diet Admission Diagnosis Admission Status: Inpatient Order (span 2 midnights) Reason for Inpatient Admission: Pancreatitis MARCELA URIBE MD 07/29/22 1145: Allergies and Home Medications Allergies Coded Allergies: Sulfa (Sulfonamide Antibiotics) (Verified Allergy, Unknown, 09/17/21) codeine (Verified Allergy, Unknown, 09/17/21) prednisone (Verified Allergy, Unknown, 09/17/21) tramadol (Verified Allergy, Unknown, 09/17/21) Patient Home Medication List Home Medication List Reviewed: Yes Albuterol Sulfate (Ventolin Hfa) 90 Mcg Hfa.aer.ad, 2 PUFF IH Q4H PRN for SHORTNESS OF BREATH, (Reported) Entered as Reported by: RACHAEL SHARMA on 09/17/211538 Last Action: Reviewed Atorvastatin Calcium (Atorvastatin Calcium) 40 Mg Tablet, 40 MG PO DAILY, (Reported) Entered as Reported by: BRITTANY TRIANA on 07/29/221429 Last Action: Reviewed Buspirone HCl (Buspirone HCl) 15 Mg Tablet, 15 MG PO TID, (Reported) Entered as Reported by: BRITTANY TRIANA on 07/29/221429 Last Action: Reviewed Duloxetine HCl (Duloxetine HCl) 60 Mg Capsule.dr, 60 MG PO DAILY, (Reported) Entered as Reported by: RACHAEL SHARMA on 09/17/211537 Last Action: Converted Gabapentin (Neurontin) 300 Mg Capsule, 300 MG PO TID, (Reported) Entered as Reported by: RACHAEL SHARMA on 09/17/211537 Last Action: Continued Gabapentin (Gabapentin) 100 Mg Capsule, 100 MG PO TID, (Reported) Entered as Reported by: BRITTANY TRIANA on 07/29/221429 Last Action: Continued Ibuprofen (Ibuprofen) 800 Mg Tablet, 800 MG PO TID PRN for PAIN-MILD (1-4), (Reported) Entered as Reported by: RACHAEL SHARMA on 09/17/211537 Last Action: Reviewed Ipratropium/Albuterol Sulfate (Iprat-Albut 0.5-3(2.5) mg/3 ml) 0.5 Mg-3 Mg (2.5 Mg Base)/3 Ml Ampul.neb, 3 ML NEB Q6H PRN for SHORTNESS OF BREATH, (Reported) Entered as Reported by: BRITTANY TRIANA on 07/29/221429 Last Action: Reviewed Methocarbamol (Methocarbamol) 750 Mg Tablet, 750 MG PO TID PRN for MUSCLE SPASMS, (Reported) Entered as Reported by: RACHAEL SHARMA on 09/17/211537 Last Action: Reviewed Multivitamin (Multi-Vitamin Daily) 1 Each Tablet, 1 EACH PO DAILY, (Reported) Entered as Reported by: RACHAEL SHARMA on 09/17/211542 Last Action: Reviewed Omeprazole (Omeprazole) 20 Mg Capsule.dr, 20 MG PO DAILY, (Reported) Entered as Reported by: RACHAEL SHARMA on 09/17/211537 Last Action: Continued Propranolol HCl (Propranolol HCl) 80 Mg Tablet, 80 MG PO DAILY, (Reported) Entered as Reported by: BRITTANY TRIANA on 07/29/221429 Last Action: Converted Sumatriptan Succinate (Sumatriptan Succinate) 50 Mg Tablet, 50 MG PO UD PRN for HEADACHE, (Reported) Entered as Reported by: BRITTANY TRIANA on 07/29/221429 Last Action: Reviewed Tiotropium Br/Olodaterol HCl (Stiolto Respimat Inhal [place]) 2.5 Mcg-2.5 Mcg/Actuation Mist.inhal, 2 PUFF INH DAILY, (Reported) Entered as Reported by: RACHAEL SHARMA on 09/17/211537 Last Action: Edited Topiramate (Topiramate) 50 Mg Tablet, 50 MG PO DAILY, (Reported) Entered as Reported by: BRITTANY TRIANA on 07/29/221429 Last Action: Converted Discontinued Medications Atorvastatin Calcium (Atorvastatin Calcium) 20 Mg Tablet, 20 MG PO DAILY, (Reported) Discontinued Reason: No Longer Taking Entered as Reported by: RACHAEL SHARMA on 09/17/211537 Last Action: Discontinued Azithromycin (Azithromycin) 250 Mg Tablet, 250 MG PO UD Discontinued Reason: No Longer Taking Prescribed by: RUY DALLAS on 01/11/22 2030 Last Action: Discontinued Bismuth Subsalicylate (Pepto-Bismol) 262 Mg/15 Ml Oral.susp, 15 ML PO DAILY PRN for UPSET STOMACH, (Reported) Discontinued Reason: No Longer Taking Entered as Reported by: RACHAEL SHARMA on 09/17/211541 Last Action: Discontinued Buspirone HCl (Buspirone HCl) 10 Mg Tablet, 10 MG PO TID, (Reported) Discontinued Reason: No Longer Taking Entered as Reported by: RACHAEL SHARMA on 09/17/21 1538 Last Action: Discontinued Calcium Carbonate (Calcium) 500 Mg Tablet, 500 MG PO DAILY, (Reported) Discontinued Reason: No Longer Taking Entered as Reported by: RACHAEL SHARMA on 09/17/21 154 Last Action: Discontinued Diphenhydramine HCl (Benadryl Allergy) 25 Mg Tablet, 25 MG PO DAILY PRN for ALLERGIES, (Reported) Discontinued Reason: No Longer Taking Entered as Reported by: RACHAEL SHARMA on 09/17/21 154 Last Action: Discontinued Guaifenesin (Mucinex) 600 Mg Tab.er.12h, 600 MG PO BID PRN for CONGESTION, (Reported) Discontinued Reason: No Longer Taking Entered as Reported by: RACHAEL SHARMA on 09/17/21 154 Last Action: Discontinued Hydrocodone/Acetaminophen (Hydrocodone-Acetamin 5-325 mg) 5 Mg-325 Mg Tablet, 1 TAB PO Q6H PRN for PAIN-MODERATE (5-7) Discontinued Reason: No Longer Taking Prescribed by: SHANTANU MITCHELL on 11/18/212209 Last Action: Discontinued Hydrocodone/Acetaminophen (Hydrocodone-Acetamin 5-325 mg) 5 Mg-325 Mg Tablet, 1 TAB PO Q4H PRN for PAIN-MODERATE (5-7) Discontinued Reason: No Longer Taking Prescribed by: RUY DALLAS on 01/11/222038 Last Action: Discontinued Oxycodone HCl (Oxycodone HCl) 5 Mg Tablet, 5 MG PO Q4H PRN for PAIN-SEVERE (8- 10) Discontinued Reason: No Longer Taking Prescribed by: DAVID MCLAIN on 09/21/21 1258 Last Action: Discontinued Potassium Chloride (Potassium Chloride) 20 Meq Tablet.er, 40 MEQ PO DAILY Discontinued Reason: No Longer Taking Prescribed by: RUY DALLAS on 01/11/222029 Last Action: Discontinued Prednisone (Prednisone) 50 Mg Tab, 50 MG PO DAILY Discontinued Reason: No Longer Taking Prescribed by: RUY DALLAS on 01/11/222029 Last Action: Discontinued Past Tvxijus-Somvua-Zaqrmw Hx Patient Social History Living Status: Lives at home independently Review of Systems Constitutional: No fever; malaise EENTM: no symptoms reported; No mouth pain, No nose congestion, No nose pain Respiratory: no symptoms reported; No cough, No dyspnea on exertion, No short of breath Cardiovascular: chest pain; No edema, No palpitations Gastrointestinal: abdominal pain (epigastric pain); No constipation, No diarrhea; loss of appetite, nausea; No vomiting Genitourinary: no symptoms reported; No dysuria, No frequency, No hematuria : No Musculoskeletal: no symptoms reported; No back pain, No joint pain, No muscle pain Skin: no symptoms reported Psychiatric/Neurological: Headache Physical Exam General Appearance: No Apparent Distress, WD/WN HEENT: PERRL/EOMI Neck: Full Range of Motion, Normal Inspection, Supple Respiratory: Lungs Clear, Normal Breath Sounds, No Accessory Muscle Use, No Respiratory Distress Cardiovascular: Regular Rate, Rhythm, No Edema, No Murmur Gastrointestinal: Normal Bowel Sounds, Soft, Tenderness (epigastric tenderness with palpation) Back: No CVA Tenderness, No Vertebral Tenderness Extremity: Normal Range of Motion, Non Tender, No Calf Tenderness, No Pedal Edema Neurologic/Psychiatric: Alert, Oriented x3, Normal Mood/Affect, visual design lead II-XII Norm as Tested Skin: Normal Color, Warm/Dry Lymphatic: No Adenopathy Supervisory-Addendum Brief Verification & Attestation Participated in pt care: history, physical Personally performed: exam, history Care discussed with: Medical Student Procedures: n/a Verification and Attestation of Medical Student E/M Service A medical student performed and documented this service in my presence. I reviewed and verified all information documented by the medical student and made modifications to such information, when appropriate. I personally performed the physical exam and medical decision making. Marcela Uribe, Jul 29, 2022,19:04 Acute Pancreatitis Abdominal pain EtOH abuse COPD HLD h/o Migraines Hypokalemia Tobacco Abuse - Advanced diet as tolerated - Pain better controlled with spread out medication dosing, switch to PO when tolerating PO - Discussed the need for EtOH cessation - Restart home meds - Replace Potassium and repeat level in AM ERAN CRAWFORDA Jul 29, 2022 13:58 MARCELA URIBE MD Jul 29, 2022 19:06
[2022-07-29] MEDS ORDERED: ATOR40TA70 PO (14:30)
[2022-07-29] MEDS ORDERED: TOPI50TA13 PO (14:30)
[2022-07-29] MEDS ORDERED: BUSP15TA60 PO (14:30)
[2022-07-29] MEDS ORDERED: IPRA3AMP31 NEB (14:30)
[2022-07-29] MEDS ORDERED: SUMA50TA2 PO (14:30)
[2022-07-29] MEDS ORDERED: GABA-486 PO (14:30)
[2022-07-29] MEDS ORDERED: PROP80TA3 PO (14:30)
[2022-07-29 15:46] VITALS: BP 140/71
[2022-07-29 19:57] VITALS: BP 141/91
[2022-07-29] MEDS: KCL 20 MEQ TAB (K-DUR) PO SCH ×2 (20:01→21:13)
[2022-07-29] MEDS: ZOLPIDEM 5 MG (AMBIEN) TAB PO SCH (21:13)
[2022-07-29] MEDS: GABAPENTIN 300 MG (NEURONTIN) CAP PO SCH (21:13)
[2022-07-29] MEDS: GABAPENTIN 100 MG (NEURONTIN) CAP PO SCH (21:13)
[2022-07-30] VITALS (7 sets, daily range): BP systolic 107–136; BP diastolic 58–84
[2022-07-30] MEDS: morphine INJ 4 MG/ML 1 ML (VIAL/SYRINGE) IVP PRN ×3 (03:24→18:22)
[2022-07-30] MEDS: ONDANSETRON 4 MG/2 ML (SDV) Z0FRAN IVP PRN ×3 (03:24→18:27)
[2022-07-30 05:41] LABS: BASOPHILS % (AUTO) 1 % (0-10); EOSINOPHILS # (AUTO) 0.1 10^3/uL (0.0-0.3); EOSINOPHILS % (AUTO) 3 % (0-10); HEMATOCRIT 35 % (35-52); HEMOGLOBIN 12.1 g/dL (11.5-16.0); LYMPHOCYTES % (AUTO) 22 % (12-44); MEAN CORPUSCULAR HEMOGLOBIN 31 pg (25-34); MEAN CORPUSCULAR HGB CONC 35 g/dL (32-36); MEAN CORPUSCULAR VOLUME 90 fL (80-99); MEAN PLATELET VOLUME 9.9 fL (9.0-12.2); MONOCYTES # (AUTO) 0.5 10^3/uL (0.0-1.0); MONOCYTES % (AUTO) 11 % (0-12); NEUTROPHILS # (AUTO) 2.9 10^3/uL (1.8-7.8); NEUTROPHILS % (AUTO) 63 % (42-75); PLATELET COUNT 155 10^3/uL (130-400); WHITE BLOOD COUNT 4.6 10^3/uL (4.3-11.0)
[2022-07-30 05:54] LABS: ALBUMIN 3.4 GM/DL (3.2-4.5); BILIRUBIN,TOTAL 0.7 MG/DL (0.1-1.0); CALCIUM 8.7 MG/DL (8.5-10.1); CREATININE SERUM 0.63 MG/DL (0.60-1.30); MAGNESIUM 1.8 MG/DL (1.6-2.4); POTASSIUM 3.4 MMOL/L (3.6-5.0); TOTAL PROTEIN 6.1 GM/DL (6.4-8.2)
[2022-07-30] MEDS: NS IV 1000 ML 1,000 ML IV SCH ×2 (06:15→10:29)
[2022-07-30] MEDS: PROPRANOLOL 20 MG (INDERAL) TABLET PO SCH (08:28)
[2022-07-30] MEDS: DULoxetine 30 MG (CYMBALTA) CAP PO SCH (08:28)
[2022-07-30] MEDS: GABAPENTIN 100 MG (NEURONTIN) CAP PO SCH ×3 (08:28→21:47)
[2022-07-30] MEDS: GABAPENTIN 300 MG (NEURONTIN) CAP PO SCH ×3 (08:28→21:47)
[2022-07-30] MEDS: PANTOPRAZOLE 20 MG TABLET (PROTONIX) PO SCH (08:29)
[2022-07-30] MEDS: ENOXAPARIN 40 MG/0.4 ML (LOVENOX) SYR SC SCH (08:29)
[2022-07-30] MEDS: KCL 20 MEQ TAB (K-DUR) PO SCH ×2 (08:29→21:47)
[2022-07-30] MEDS: toPIRamate 25 MG (TOPAMAX) TAB PO SCH (08:44)
[2022-07-30] MEDS ORDERED: NON-FORMULARY MEDICATION 1 EA EA (Propranolol HCl 80 MG) PO SCH (09:00)
[2022-07-30] MEDS ORDERED: OMEPRAZOLE 20 MG (PriLOSEC) CAP NON-FORMULARY PO SCH (09:00)
[2022-07-30] MEDS ORDERED: NON-FORMULARY MEDICATION 1 EA EA (Duloxetine HCl 60 MG) PO SCH (09:00)
[2022-07-30] MEDS ORDERED: NON-FORMULARY MEDICATION 1 EA EA (Topiramate 50 MG) PO SCH (09:00)
[2022-07-30 12:28] LABS: MAGNESIUM 1.8 MG/DL (1.6-2.4)
[2022-07-30] MEDS: POTASSIUM CL 10MEQ/50ML IVPB 50 ML IV SCH ×6 (13:00→20:51)
[2022-07-30 13:21] LABS: ABG BASE EXCESS -10.1 MMOL/L (-2.5-2.5); ABG OXYGEN SATURATION 98 % (94-100); ABG PCO2 30 MMHG (35-45); ABG PO2 93 MMHG (79-93); ABG TCO2 15.8 MMOL/L (21.0-31.0)
[2022-07-30 13:25] LABS: ABG PH 7.31 (7.37-7.43); ALLENS TEST YES-POS
[2022-07-30 13:26] LABS: INSPIRED O2 ROOM AIR; VENTILATOR NO
--- NOTE | 2022-07-30 13:33 | Progress Note - Hospitalist ---
ESAU GRANDE 07/30/22 1333: Subjective HPI/CC On Admission Date Seen by Provider: Jul 30, 2022 Subjective/Events-last exam 61 yo F with a history of pancreatitis, alcohol use disorder, HLD and COPD presented to [facility] ED on 07/28 for sharp epigastric pain x2 days. Per ER notes, she admitted to consuming 3-4 shots of liquor the night before her pain began but denied alcohol use thereafter. She also reported one previous hospitalization for pancreatitis in 09/2021. Work-up revealed findings consistent with acute pancreatitis; the patient was admitted to [facility] later that day. IVF, NPO, morphine 2mg Q2h PRN, Zofran and Protonix were initiated. Today she reports epigastric pain rated a 3/10, an improvement from admission. She notes mild, intermittent discomfort related to eating ice chips and liquid intake. Otherwise she is comfortable. Objective Exam Vital Signs Vital Signs Date Time Temp Pulse Resp B/P (MAP) Pulse Ox O2 Delivery O2 Flow Rate FiO2 07/30/22 07:45 36.9 74 18 135/63 (87) 97 Nasal Cannula 2.00 Capillary Refill : General Appearance: No Apparent Distress Respiratory: Lungs Clear Cardiovascular: Regular Rate, Rhythm Gastrointestinal: Normal Bowel Sounds, Other (tenderness to palpation of epigastric region) Extremity: Normal Inspection Neurologic/Psychiatric: Alert, Oriented x3 Results/Procedures Lab Laboratory Tests 07/30/22 05:15 Patient resulted labs reviewed. Assessment/Plan Assessment and Plan Assess & Plan/Chief Complaint Pancreatitis - likely secondary to alcohol use disorder - IVF - liquid diet since - Morphine 2mg Q2h PRN - Zofran - Protonix Hypokalemia (07/29) - 3.4 today improved from 2.8 on 07/29 - KCl since 07/29 Hyponatremia (07/29) - 134 today improved from 129 on 07/29 Metabolic Acidosis (07/29) - carbon dioxide 15L today up from 14L on 07/29 - ABG ordered Hyperlipidemia (chronic) - plans to obtain lipid panel - plans to resume atorvostatin once regular diet resumed COPD (chronic) - 2L of supplemnetal oxygen - albuterol 3 mL - history of emphysema 3L requiring 2L of O2 at home LEANDRA FORTE DO 07/31/22 0547: Supervisory-Addendum Brief Verification & Attestation Participated in pt care: history, MDM, physical Personally performed: exam, history, MDM, supervision of care Care discussed with: Medical Student Procedures: n/a Results interpretation: Verified all documentation Verification and Attestation of Medical Student E/M Service A medical student performed and documented this service in my presence. I reviewed and verified all information documented by the medical student and made modifications to such information, when appropriate. I personally performed the physical exam and medical decision making. Leandra Forte, Jul 31, 2022,05:46 ESAU GRANDE Jul 30, 2022 13:33 LEANDRA FORTE DO Jul 31, 2022 05:47
--- NOTE | 2022-07-30 14:05 | Consultation - Surgery ---
MARLON RAMIREZ 07/30/22 1405: History of Present Illness History of Present Illness Patient Consulted On(noris/time) 07/30/22 13:59 Date Seen by Provider: Jul 30, 2022 Time Seen by Provider: 13:35 History of Present Illness Carola Peace is a 61 yo female who was admitted to inpatient care from [facility] with diagnosis of pancreatitis. The patient reports she was at baseline when she went to bed on 07/27 but on 07/28 awoke at 0220 with sharp epigastric abdominal pain accompanied by nausea and vomiting. She contacted her daughter, who brought her to the [facility] emergency department, who transferred her here, as all their beds were full. The patient states her pain was 10/10 on onset, but is 4/10 currently. She indicates she was instructed to be NPO on arrival on 07/28 but yesterday was permitted to start eating ice chips and today was started on clear fluids. Her pain yesterday prior to ice chips was 2/10, and it significantly worsens with ice chips and with fluid intake. She remarks her pain is worse currently than it was with her previous pancreatitis. The patient notes a secondary complaint of midline upper and right upper chest pain, which she describes as "squeezing" and is accompanied by numbness radiating down her right arm. The patient has chronic persistent right hand numbness, which she attributes to her history of seizure, though the numbness and tingling worsens with episodes of chest pain. She states her chest pain is similar to previous chest pains, for which she has had cardiac catherization without stent placement performed in [facility] in [place]. The patient denies any fever, chills, headache, neck pain, hematemesis, new shortness of breath, diarrhea, constipation, leg swelling, or urinary symptoms. Allergies and Home Medications Allergies Coded Allergies: Sulfa (Sulfonamide Antibiotics) (Verified Allergy, Unknown, 09/17/21) codeine (Verified Allergy, Unknown, 09/17/21) prednisone (Verified Allergy, Unknown, 09/17/21) tramadol (Verified Allergy, Unknown, 09/17/21) Patient Home Medication List Home Medication List Reviewed: Yes Albuterol Sulfate (Ventolin Hfa) 90 Mcg Hfa.aer.ad, 2 PUFF IH Q4H PRN for SHORTNESS OF BREATH, (Reported) Entered as Reported by: RACHAEL SHARMA on 09/17/211538 Last Action: Reviewed Atorvastatin Calcium (Atorvastatin Calcium) 40 Mg Tablet, 40 MG PO DAILY, (Reported) Entered as Reported by: BRITTANY TRIANA on 07/29/221429 Last Action: Reviewed Buspirone HCl (Buspirone HCl) 15 Mg Tablet, 15 MG PO TID, (Reported) Entered as Reported by: BRITTANY TRIANA on 07/29/221429 Last Action: Reviewed Duloxetine HCl (Duloxetine HCl) 60 Mg Capsule.dr, 60 MG PO DAILY, (Reported) Entered as Reported by: RACHAEL SHARMA on 09/17/211537 Last Action: Converted Gabapentin (Neurontin) 300 Mg Capsule, 300 MG PO TID, (Reported) Entered as Reported by: RACHAEL SHARMA on 09/17/211537 Last Action: Continued Gabapentin (Gabapentin) 100 Mg Capsule, 100 MG PO TID, (Reported) Entered as Reported by: BRITTANY TRIANA on 07/29/221429 Last Action: Continued Ibuprofen (Ibuprofen) 800 Mg Tablet, 800 MG PO TID PRN for PAIN-MILD (1-4), (Reported) Entered as Reported by: RACHAEL SHARMA on 09/17/211537 Last Action: Reviewed Ipratropium/Albuterol Sulfate (Iprat-Albut 0.5-3(2.5) mg/3 ml) 0.5 Mg-3 Mg (2.5 Mg Base)/3 Ml Ampul.neb, 3 ML NEB Q6H PRN for SHORTNESS OF BREATH, (Reported) Entered as Reported by: BRITTANY TRIANA on 07/29/221429 Last Action: Reviewed Methocarbamol (Methocarbamol) 750 Mg Tablet, 750 MG PO TID PRN for MUSCLE SPASMS, (Reported) Entered as Reported by: RACHAEL SHARMA on 09/17/211537 Last Action: Reviewed Multivitamin (Multi-Vitamin Daily) 1 Each Tablet, 1 EACH PO DAILY, (Reported) Entered as Reported by: RACHAEL SHARMA on 09/17/211542 Last Action: Reviewed Omeprazole (Omeprazole) 20 Mg Capsule.dr, 20 MG PO DAILY, (Reported) Entered as Reported by: RACHAEL SHARMA on 09/17/211537 Last Action: Continued Propranolol HCl (Propranolol HCl) 80 Mg Tablet, 80 MG PO DAILY, (Reported) Entered as Reported by: BRITTANY TRIANA on 07/29/221429 Last Action: Converted Sumatriptan Succinate (Sumatriptan Succinate) 50 Mg Tablet, 50 MG PO UD PRN for HEADACHE, (Reported) Entered as Reported by: BRITTANY TRIANA on 07/29/221429 Last Action: Reviewed Tiotropium Br/Olodaterol HCl (Stiolto Respimat Inhal Johnston) 2.5 Mcg-2.5 Mcg/Actuation Mist.inhal, 2 PUFF INH DAILY, (Reported) Entered as Reported by: RACHAEL SHARMA on 09/17/211537 Last Action: Edited Topiramate (Topiramate) 50 Mg Tablet, 50 MG PO DAILY, (Reported) Entered as Reported by: BRITTANY TRIANA on 07/29/221429 Last Action: Converted Discontinued Medications Atorvastatin Calcium (Atorvastatin Calcium) 20 Mg Tablet, 20 MG PO DAILY, (Reported) Discontinued Reason: No Longer Taking Entered as Reported by: RACHAEL SHARMA on 09/17/211537 Last Action: Discontinued Azithromycin (Azithromycin) 250 Mg Tablet, 250 MG PO UD Discontinued Reason: No Longer Taking Prescribed by: RUY DALLAS on 01/11/22 2030 Last Action: Discontinued Bismuth Subsalicylate (Pepto-Bismol) 262 Mg/15 Ml Oral.susp, 15 ML PO DAILY PRN for UPSET STOMACH, (Reported) Discontinued Reason: No Longer Taking Entered as Reported by: RACHAEL SHARMA on 09/17/211541 Last Action: Discontinued Buspirone HCl (Buspirone HCl) 10 Mg Tablet, 10 MG PO TID, (Reported) Discontinued Reason: No Longer Taking Entered as Reported by: RACHAEL SHARMA on 09/17/211537 Last Action: Discontinued Calcium Carbonate (Calcium) 500 Mg Tablet, 500 MG PO DAILY, (Reported) Discontinued Reason: No Longer Taking Entered as Reported by: RACHAEL SHARMA on 09/17/211541 Last Action: Discontinued Diphenhydramine HCl (Benadryl Allergy) 25 Mg Tablet, 25 MG PO DAILY PRN for ALLERGIES, (Reported) Discontinued Reason: No Longer Taking Entered as Reported by: RACHAEL SHARMA on 3/10/22 1544 Last Action: Discontinued Guaifenesin (Mucinex) 600 Mg Tab.er.12h, 600 MG PO BID PRN for CONGESTION, (Reported) Discontinued Reason: No Longer Taking Entered as Reported by: RACHAEL SHARMA on 09/17/21 1540 Last Action: Discontinued Hydrocodone/Acetaminophen (Hydrocodone-Acetamin 5-325 mg) 5 Mg-325 Mg Tablet, 1 TAB PO Q6H PRN for PAIN-MODERATE (5-7) Discontinued Reason: No Longer Taking Prescribed by: SHANTANU MITCHELL on 11/18/21 2210 Last Action: Discontinued Hydrocodone/Acetaminophen (Hydrocodone-Acetamin 5-325 mg) 5 Mg-325 Mg Tablet, 1 TAB PO Q4H PRN for PAIN-MODERATE (5-7) Discontinued Reason: No Longer Taking Prescribed by: RUY DALLAS on 01/11/222038 Last Action: Discontinued Oxycodone HCl (Oxycodone HCl) 5 Mg Tablet, 5 MG PO Q4H PRN for PAIN-SEVERE (8- 10) Discontinued Reason: No Longer Taking Prescribed by: DAVID MCLAIN on 09/21/21 1258 Last Action: Discontinued Potassium Chloride (Potassium Chloride) 20 Meq Tablet.er, 40 MEQ PO DAILY Discontinued Reason: No Longer Taking Prescribed by: RUY DALLAS on 01/11/22 2030 Last Action: Discontinued Prednisone (Prednisone) 50 Mg Tab, 50 MG PO DAILY Discontinued Reason: No Longer Taking Prescribed by: RUY DALLAS on 01/11/22 2030 Last Action: Discontinued Past Iqerxrj-Ecyubo-Newavd Hx Patient Social History Smoking Status: Current Everyday Smoker (2 cigarettes per day for 3 years, was previously 3 ppd for 6 years. ) Alcohol Use?: Yes (once per month, last 3 months ago; was daily drinker prior to that) Have you traveled recently?: No Immunizations Up To Date Tetanus Booster (TDap): Unknown Seasonal Allergies Seasonal Allergies: No Surgeries History of Surgeries: Yes Surgeries: Section, Cystectomy (right leg), Orthopedic Respiratory History of Respiratory Disorde: Yes Respiratory Disorders: COPD, Emphysema Cardiovascular History of Cardiac Disorders: Yes Cardiac Disorders: High Cholesterol, Hypertension Neurological History of Neurological Disord: Yes Neurological Disorders: Headaches /Migraines, Neuropathy, Seizure Disorder Reproductive System Hx Reproductive Disorders: No Genitourinary History of Genitourinary Disor: No Gastrointestinal History of Gastrointestinal Di: Yes Gastrointestinal Disorders: Gastrointestinal Bleed, Pancreatitis, Ulcer Musculoskeletal History of Musculoskeletal Dis: Yes Musculoskeletal Disorders: Arthritis, Fractures Endocrine History of Endocrine Disorders: No HEENT History of HEENT Disorders: No Loss of Vision: Denies Hearing Impairment: Denies Cancer History of Cancer: No Psychosocial History of Psychiatric Problem: Yes Behavioral Health Disorders: Anxiety, Depression Integumentary History of Skin or Integumenta: No Blood Transfusions History of Blood Disorders: No Adverse Reaction to a Blood Tr: No Family Medical History Significant Family History: Cancer (stomach, father), Other Conditions/Hx (alcohol abuse, mother) Review of Systems-General Constitutional: No chills, No fever EENTM: other (no headache, anterior neck pain) Respiratory: dyspnea on exertion (chronic secondary to COPD), short of breath (chronic secondary to COPD) Cardiovascular: chest pain (midline upper, right upper); No edema Gastrointestinal: abdominal pain (epigastric), nausea, vomiting Genitourinary: No dysuria, No hesitancy Psychiatric/Neurological: Numbness (right medial hand); Denies Seizure Physical Exam-General Problems Physical Exam Vital Signs Vital Signs - First Documented 07/28/22 07/29/22 22:08 15:46 Temp 36.5 Pulse 71 Resp 19 B/P (MAP) 156/83 (107) Pulse Ox 97 O2 Delivery Room Air O2 Flow Rate 2.00 Capillary Refill : General Appearance: no apparent distress, thin HEENT: PERRL/EOMI, pharynx normal Neck: supple; No carotid bruit Respiratory: lungs clear, normal breath sounds, no respiratory distress, no accessory muscle use Cardiovascular: regular rate, rhythm, no edema, no murmur Peripheral Pulses: 2+ Dorsalis Pedis (R), 2+ Left Dors-Pedis (L), 2+ Radial Pulses (R), 2+ Radial Pulses (L) Gastrointestinal: normal bowel sounds, soft, guarding (voluntary), tenderness (diffuse, worse in the epigastrium) Extremities: no pedal edema, no calf tenderness Neurologic/Psychiatric: alert, oriented x 3, sensory deficit (right hand fourth and fifth digits) Skin: normal color, warm/dry, ecchymosis (multiple small bruises to the RLQ) Lymphatic: no adenopathy Data Review Labs Laboratory Tests 1/20/23 05:15: White Blood Count 4.6, Red Blood Count 3.89, Hemoglobin 12.1, Hematocrit 35, Mean Corpuscular Volume 90, Mean Corpuscular Hemoglobin 31, Mean Corpuscular Hemoglobin Concent 35, Red Cell Distribution Width 14.0, Platelet Count 155, Mean Platelet Volume 9.9, Immature Granulocyte % (Auto) 1, Neutrophils (%) (Auto) 63, Lymphocytes (%) (Auto) 22, Monocytes (%) (Auto) 11, Eosinophils (%) (Auto) 3, Basophils (%) (Auto) 1, Neutrophils # (Auto) 2.9, Lymphocytes # (Auto) 1.0, Monocytes # (Auto) 0.5, Eosinophils # (Auto) 0.1, Basophils # (Auto) 0.0, Immature Granulocyte # (Auto) 0.0, Sodium Level 134L, Potassium Level 3.4L, Chloride Level 111#H, Carbon Dioxide Level 14L, Anion Gap 9, Blood Urea Nitrogen 10, Creatinine 0.63, Estimat Glomerular Filtration Rate 102, BUN/Creatinine Ratio 16, Glucose Level 93, Calcium Level 8.7, Corrected Calcium 9.2, Phosphorus Level 2.0L, Magnesium Level 1.8, Total Bilirubin 0.7, Aspartate Amino Transf (AST/SGOT) 19, Alanine Aminotransferase (ALT/SGPT) 33, Alkaline Phosphatase 77, Total Protein 6.1L, Albumin 3.4 07/30/22 11:52: Magnesium Level 1.8, Amylase Level 71, Lipase 201H 07/30/22 13:14: Blood Gas Puncture Site L RAD, Blood Gas Patient Temperature 37.0, Arterial Blood pH 7.31*L, Arterial Blood Partial Pressure CO2 30L, Arterial Blood Partial Pressure O2 93, Arterial Blood HCO3 15*L, Arterial Blood Total CO2 15.8L, Arterial Blood Oxygen Saturation 98, Arterial Blood Base Excess -10.1L, Vladimir Test YES-POS, Blood Gas Ventilator Setting NO, Blood Gas Inspired Oxygen ROOM AIR Assessment/Plan Assessment/Plan Assessment/Plan 1. Acute pancreatitis 2. Hx of pancreatitis 3. Chest pain 4. Right hand numbness 5. Hx of alcohol abuse 6. Hx of COPD, emphysema 7. Hypokalemia 8. Anticoagulated status on Lovenox Patient should return to NPO status until lipase continues to trend down, and her abdominal pain is minimal if not resolved. Continue administration of IV fluids, electrolytes (potassium replacement), nutrition, and analgesics. Consider obtaining ECG and troponin for chest pain, as it is similar to her previous chest pain requiring cardiac catheterization in [place]. KEMAR GAVIN DO 07/30/22 1451: History of Present Illness History of Present Illness Time Seen by Provider: 14:31 History of Present Illness Surgery asked to consult regarding Pancreatitis. HPI: Pt states the pain from pancreatitis is the worst it has ever been. Pain increases with any food, fluid and even her pills; although, states when she takes "the stomach medicine before the other pills, it's not as bad". She did drink 3 "shots" on Tuesday, no pain. Pain started on Tuesday after she ate "a lot of chili and vomited it up". Allergies and Home Medications Allergies Coded Allergies: Sulfa (Sulfonamide Antibiotics) (Verified Allergy, Unknown, 09/17/21) codeine (Verified Allergy, Unknown, 09/17/21) prednisone (Verified Allergy, Unknown, 09/17/21) tramadol (Verified Allergy, Unknown, 09/17/21) Patient Home Medication List Home Medication List Reviewed: Yes Albuterol Sulfate (Ventolin Hfa) 90 Mcg Hfa.aer.ad, 2 PUFF IH Q4H PRN for SHORTNESS OF BREATH, (Reported) Entered as Reported by: RACHAEL SHARMA on 09/17/211538 Last Action: Reviewed Atorvastatin Calcium (Atorvastatin Calcium) 40 Mg Tablet, 40 MG PO DAILY, (Reported) Entered as Reported by: BRITTANY TRIANA on 07/29/22 143 Last Action: Reviewed Buspirone HCl (Buspirone HCl) 15 Mg Tablet, 15 MG PO TID, (Reported) Entered as Reported by: BIRTTANY TRIANA on 07/29/22 143 Last Action: Reviewed Duloxetine HCl (Duloxetine HCl) 60 Mg Capsule.dr, 60 MG PO DAILY, (Reported) Entered as Reported by: RACHAEL SHARMA on 09/17/211537 Last Action: Converted Gabapentin (Neurontin) 300 Mg Capsule, 300 MG PO TID, (Reported) Entered as Reported by: RACHAEL SHARMA on 09/17/211537 Last Action: Continued Gabapentin (Gabapentin) 100 Mg Capsule, 100 MG PO TID, (Reported) Entered as Reported by: BRITTANY TRIANA on 07/29/221429 Last Action: Continued Ibuprofen (Ibuprofen) 800 Mg Tablet, 800 MG PO TID PRN for PAIN-MILD (1-4), (Reported) Entered as Reported by: RACHAEL SHARMA on 09/17/211537 Last Action: Reviewed Ipratropium/Albuterol Sulfate (Iprat-Albut 0.5-3(2.5) mg/3 ml) 0.5 Mg-3 Mg (2.5 Mg Base)/3 Ml Ampul.neb, 3 ML NEB Q6H PRN for SHORTNESS OF BREATH, (Reported) Entered as Reported by: BRITTANY TRIANA on 07/29/221429 Last Action: Reviewed Methocarbamol (Methocarbamol) 750 Mg Tablet, 750 MG PO TID PRN for MUSCLE SPASMS, (Reported) Entered as Reported by: RACHAEL SHARMA on 09/17/211537 Last Action: Reviewed Multivitamin (Multi-Vitamin Daily) 1 Each Tablet, 1 EACH PO DAILY, (Reported) Entered as Reported by: RACHAEL SHARMA on 09/17/211542 Last Action: Reviewed Omeprazole (Omeprazole) 20 Mg Capsule.dr, 20 MG PO DAILY, (Reported) Entered as Reported by: RACHAEL SHARMA on 09/17/211537 Last Action: Continued Propranolol HCl (Propranolol HCl) 80 Mg Tablet, 80 MG PO DAILY, (Reported) Entered as Reported by: BRITTANY TRIANA on 07/29/221429 Last Action: Converted Sumatriptan Succinate (Sumatriptan Succinate) 50 Mg Tablet, 50 MG PO UD PRN for HEADACHE, (Reported) Entered as Reported by: BRITTANY TRIANA on 07/29/221429 Last Action: Reviewed Tiotropium Br/Olodaterol HCl (Stiolto Respimat Inhal Johnston) 2.5 Mcg-2.5 Mcg/Actuation Mist.inhal, 2 PUFF INH DAILY, (Reported) Entered as Reported by: RACHAEL SHARMA on 09/17/211537 Last Action: Edited Topiramate (Topiramate) 50 Mg Tablet, 50 MG PO DAILY, (Reported) Entered as Reported by: BRITTANY TRIANA on 07/29/221429 Last Action: Converted Discontinued Medications Atorvastatin Calcium (Atorvastatin Calcium) 20 Mg Tablet, 20 MG PO DAILY, (Re ported) Discontinued Reason: No Longer Taking Entered as Reported by: RACHAEL SHARMA on 09/17/211537 Last Action: Discontinued Azithromycin (Azithromycin) 250 Mg Tablet, 250 MG PO UD Discontinued Reason: No Longer Taking Prescribed by: RUY DALLAS on 01/11/222029 Last Action: Discontinued Bismuth Subsalicylate (Pepto-Bismol) 262 Mg/15 Ml Oral.susp, 15 ML PO DAILY PRN for UPSET STOMACH, (Reported) Discontinued Reason: No Longer Taking Entered as Reported by: RACHAEL SHARMA on 09/17/211541 Last Action: Discontinued Buspirone HCl (Buspirone HCl) 10 Mg Tablet, 10 MG PO TID, (Reported) Discontinued Reason: No Longer Taking Entered as Reported by: RACHAEL SHARMA on 09/17/211537 Last Action: Discontinued Calcium Carbonate (Calcium) 500 Mg Tablet, 500 MG PO DAILY, (Reported) Discontinued Reason: No Longer Taking Entered as Reported by: RACHAEL SHARMA on 09/17/211541 Last Action: Discontinued Diphenhydramine HCl (Benadryl Allergy) 25 Mg Tablet, 25 MG PO DAILY PRN for ALLERGIES, (Reported) Discontinued Reason: No Longer Taking Entered as Reported by: RACHAEL SHARMA on 09/17/21 1544 Last Action: Discontinued Guaifenesin (Mucinex) 600 Mg Tab.er.12h, 600 MG PO BID PRN for CONGESTION, (Reported) Discontinued Reason: No Longer Taking Entered as Reported by: RACHAEL SHARMA on 09/17/21 154 Last Action: Discontinued Hydrocodone/Acetaminophen (Hydrocodone-Acetamin 5-325 mg) 5 Mg-325 Mg Tablet, 1 TAB PO Q6H PRN for PAIN-MODERATE (5-7) Discontinued Reason: No Longer Taking Prescribed by: SHANTANU MITCHELL on 11/18/212209 Last Action: Discontinued Hydrocodone/Acetaminophen (Hydrocodone-Acetamin 5-325 mg) 5 Mg-325 Mg Tablet, 1 TAB PO Q4H PRN for PAIN-MODERATE (5-7) Discontinued Reason: No Longer Taking Prescribed by: RUY DALLAS on 01/11/222038 Last Action: Discontinued Oxycodone HCl (Oxycodone HCl) 5 Mg Tablet, 5 MG PO Q4H PRN for PAIN-SEVERE (8- 10) Discontinued Reason: No Longer Taking Prescribed by: DAVID MCLAIN on 09/21/21 1258 Last Action: Discontinued Potassium Chloride (Potassium Chloride) 20 Meq Tablet.er, 40 MEQ PO DAILY Discontinued Reason: No Longer Taking Prescribed by: RUY DALLAS on 01/11/22 2030 Last Action: Discontinued Prednisone (Prednisone) 50 Mg Tab, 50 MG PO DAILY Discontinued Reason: No Longer Taking Prescribed by: RUY DALLAS on 01/11/22 2030 Last Action: Discontinued Past Edfloyp-Bnfzwi-Ksbyal Hx Patient Social History Smoking Status: Current Everyday Smoker (2 cigarettes per day for 3 years, was previously 3 ppd for 6 years. ) Alcohol Use?: Yes (once per month, last 3 months ago; was daily drinker prior to that) Surgeries History of Surgeries: Yes Surgeries: Section, Cystectomy (right leg), Orthopedic Respiratory History of Respiratory Disorde: Yes Respiratory Disorders: COPD, Emphysema Cardiovascular History of Cardiac Disorders: Yes Cardiac Disorders: High Cholesterol, Hypertension Neurological History of Neurological Disord: Yes Neurological Disorders: Headaches /Migraines, Neuropathy, Seizure Disorder Genitourinary History of Genitourinary Disor: No Gastrointestinal History of Gastrointestinal Di: Yes Gastrointestinal Disorders: Gastrointestinal Bleed, Pancreatitis, Ulcer Musculoskeletal History of Musculoskeletal Dis: Yes Musculoskeletal Disorders: Arthritis, Fractures Endocrine History of Endocrine Disorders: No HEENT History of HEENT Disorders: No Loss of Vision: Denies Hearing Impairment: Denies Cancer History of Cancer: No Psychosocial History of Psychiatric Problem: Yes Behavioral Health Disorders: Anxiety, Depression Integumentary History of Skin or Integumenta: No Family Medical History Significant Family History: Cancer (stomach, father), Other Conditions/Hx (alcohol abuse, mother) Review of Systems-General Constitutional: No chills, No fever EENTM: other (no anterior neck pain); No double vision, No mouth swelling, No epistaxis Respiratory: dyspnea on exertion (chronic secondary to COPD), short of breath (chronic secondary to COPD) Cardiovascular: chest pain (midline upper, right upper); No edema Gastrointestinal: abdominal pain (epigastric), nausea, vomiting Genitourinary: No dysuria, No hematuria, No hesitancy Musculoskeletal: joint pain, joint swelling, muscle stiffness Skin: No change in color, No change in hair/nails Psychiatric/Neurological: Anxiety, Depressed; Denies Headache; Numbness (right medial hand), Seizure (4 weeks) Physical Exam-General Problems Physical Exam General Appearance: no apparent distress, thin Eyes: Bilateral Eye PERRL, Bilateral Eye EOMI HEENT: pharynx normal; No scleral icterus (R), No scleral icterus (L); other (edentulous) Neck: supple; No carotid bruit Respiratory: lungs clear, normal breath sounds, no respiratory distress, no accessory muscle use Cardiovascular: regular rate, rhythm, no edema, no murmur Gastrointestinal: normal bowel sounds, soft, guarding (voluntary), tenderness (diffuse, worse in the epigastrium) Rectal: deferred Back: no CVA tenderness, no vertebral tenderness Extremities: no pedal edema, no calf tenderness Neurologic/Psychiatric: alert, oriented x 3, sensory deficit (right hand fourth and fifth digits) Skin: normal color, warm/dry, ecchymosis (multiple small bruises to the RLQ - where she is getting Lovenox shot) Lymphatic: no adenopathy (neck, axilla or groin) Assessment/Plan Assessment/Plan Assessment/Plan 1. Acute pancreatitis on chronic pancreatitis 2. Chest pain - seems to be due to the Potassium supplementation going through IV 3. Right hand numbness - states she has had that since her seizure 4 weeks ago 4. Hx of alcohol abuse 5. Hx of COPD, emphysema 6. Hypokalemia 7. Anticoagulated status on Lovenox Patient should return to NPO status until lipase continues to trend down and her abdominal pain is minimal; if not resolved. Continue administration of IV fluids, electrolytes (potassium replacement), nutrition, and analgesics. Monitor labs and physical exam. I went over all old labs, from previous visits and went back through imaging as well. I do not think she needs any repeat imaging at this time. Supervisory-Addendum Brief Verification & Attestation Participated in pt care: history, MDM, physical Personally performed: exam, history, MDM, supervision of care Care discussed with: Medical Student Procedures: n/a Verification and Attestation of Medical Student E/M Service A medical student performed and documented this service. I then reviewed and verified all information documented by the medical student and made modifications to such information, when appropriate. I personally performed a physical exam, medical decision making and then discussed any differences between the notes and made revisions as necessary to create one note. Kemar Gavin , 07/30/22 , 14:56 MARLON RAMIREZ Jul 30, 2022 14:05 KEMAR GAVIN DO Jul 30, 2022 14:51
[2022-07-30] MEDS: MAGNESIUM 1 GM/100 ML IVPB 100 ML IV SCH ×2 (15:40→17:00)
[2022-07-30] MEDS ORDERED: MAGNESIUM 1 GM/100 ML IVPB 100 ML IV SCH (18:00)
[2022-07-30] MEDS: SODIUM BICARBONATE 650 MG TABLET PO SCH (21:47)
[2022-07-30] MEDS: ZOLPIDEM 5 MG (AMBIEN) TAB PO SCH (21:47)
[2022-07-31] MEDS: NS IV 1000 ML 1,000 ML IV SCH ×3 (01:35→22:04)
[2022-07-31] MEDS: ONDANSETRON 4 MG/2 ML (SDV) Z0FRAN IVP PRN (04:02)
[2022-07-31] MEDS: morphine INJ 4 MG/ML 1 ML (VIAL/SYRINGE) IVP PRN ×3 (04:03→14:02)
[2022-07-31 04:19] VITALS: BP 104/52
[2022-07-31 06:30] LABS: BASOPHILS % (AUTO) 1 % (0-10); EOSINOPHILS # (AUTO) 0.1 10^3/uL (0.0-0.3); EOSINOPHILS % (AUTO) 4 % (0-10); HEMATOCRIT 35 % (35-52); HEMOGLOBIN 12.1 g/dL (11.5-16.0); LYMPHOCYTES # (AUTO) 0.8 10^3/uL (1.0-4.0); LYMPHOCYTES % (AUTO) 28 % (12-44); MEAN CORPUSCULAR HEMOGLOBIN 32 pg (25-34); MEAN CORPUSCULAR HGB CONC 35 g/dL (32-36); MEAN CORPUSCULAR VOLUME 93 fL (80-99); MEAN PLATELET VOLUME 9.9 fL (9.0-12.2); MONOCYTES # (AUTO) 0.4 10^3/uL (0.0-1.0); MONOCYTES % (AUTO) 12 % (0-12); NEUTROPHILS # (AUTO) 1.6 10^3/uL (1.8-7.8); NEUTROPHILS % (AUTO) 54 % (42-75); PLATELET COUNT 190 10^3/uL (130-400)
--- NOTE | 2022-07-31 06:48 | Progress Note - Hospitalist ---
Subjective HPI/CC On Admission Date Seen by Provider: Jul 31, 2022 Time Seen by Provider: 11:00 Subjective/Events-last exam Patient doing well Lipase near normal Tolerating tea Dr Guerrero and I conferred Objective Exam Vital Signs Vital Signs Date Time Temp Pulse Resp B/P (MAP) Pulse Ox O2 Delivery O2 Flow Rate FiO2 07/31/22 11:36 36.8 63 20 112/54 (73) 98 Room Air 2.00 Capillary Refill : General Appearance: No Apparent Distress, WD/WN, Chronically ill Respiratory: Lungs Clear, Normal Breath Sounds Cardiovascular: Regular Rate, Rhythm Extremity: No Normal Capillary Refill, No Normal Inspection, No Normal Range of Motion, No Non Tender, No No Calf Tenderness, No No Pedal Edema, No Calf Tenderness, No Inflammation, No Pedal Edema, No Pelvis Stable, No Slow Capillary Refill, No Swelling, No Other Neurologic/Psychiatric: Alert, Oriented x3, No Motor/Sensory Deficits, Normal Mood/Affect Results/Procedures Lab Laboratory Tests 07/31/22 05:16 Patient resulted labs reviewed. Assessment/Plan Assessment and Plan Assess & Plan/Chief Complaint Pancreatitis - likely secondary to alcohol use disorder - IVF - liquid diet since - Morphine 2mg Q2h PRN - Zofran - Protonix Hypokalemia (07/29) - 3.4 today improved from 2.8 on 07/29 - KCl since 07/29 Hyponatremia (07/29) - 134 today improved from 129 on 07/29 Metabolic Acidosis (07/29) - carbon dioxide 15L today up from 14L on 07/29 - ABG ordered Hyperlipidemia (chronic) - plans to obtain lipid panel - plans to resume atorvostatin once regular diet resumed COPD (chronic) - 2L of supplemnetal oxygen - albuterol 3 mL - history of emphysema 3L requiring 2L of O2 at home BERTIN FORTE DO Jul 31, 2022 06:48
[2022-07-31 06:51] LABS: ALBUMIN 3.3 GM/DL (3.2-4.5); BILIRUBIN,TOTAL 0.6 MG/DL (0.1-1.0); CALCIUM 8.5 MG/DL (8.5-10.1); CREATININE SERUM 0.68 MG/DL (0.60-1.30); POTASSIUM 3.8 MMOL/L (3.6-5.0); TOTAL PROTEIN 5.9 GM/DL (6.4-8.2)
[2022-07-31 07:30] VITALS: BP 122/56
--- NOTE | 2022-07-31 08:44 | Progress Note - Surgery ---
MARLON RAMIREZ 07/31/22 0844: Subjective Date Seen by a Provider: Jul 31, 2022 Time Seen by a Provider: 07:55 Subjective/Events-last exam The patient is seated in bed at time of my evaluation. She reports her epigastric abdominal pain is improved from yesterday, currently a 2-3/10. She states she is still getting a small amount of ice chips from her nurses and has been taking some pills PO, but has otherwise been NPO. The patient remarks her chest pain is improved at this time and attributes it to the IV potassium administration. She denies any chills, headache, shortness of breath, difficulty urinating. Review of Systems General: No Chills HEENT: No Head Aches Pulmonary: No Dyspnea Cardiovascular: Chest Pain (with IV potassium replacement yesterday, resolved at this time) Gastrointestinal: No: Abdominal Pain Genitourinary: No Dysuria, No Retention Objective Exam Vital Signs Date Time Temp Pulse Resp B/P (MAP) Pulse Ox O2 Delivery O2 Flow Rate FiO2 07/31/22 07:30 37.2 64 18 122/56 (78) 97 Room Air 07/31/22 04:19 36.3 57 16 104/52 (69) 99 Nasal Cannula 2.00 07/30/22 23:52 36.0 70 16 107/59 (75) 97 Nasal Cannula 2.00 07/30/22 20:00 36.3 58 18 113/59 (77) 100 Room Air 07/30/22 20:00 Room Air 07/30/22 15:57 37.0 62 18 128/59 (82) 100 Room Air 07/30/22 12:00 37.0 62 18 123/58 (79) 99 Room Air I & O 07/31/22 07:00 Intake Total 2250 ml Output Total 1950 ml Balance 300 ml Capillary Refill : General Appearance: No Apparent Distress HEENT: PERRL/EOMI, Other (edentulous) Neck: Non Tender Respiratory: Lungs Clear, Normal Breath Sounds, No Accessory Muscle Use, No Respiratory Distress Cardiovascular: Regular Rate, Rhythm, No Murmur Peripheral Pulses: 2+ Dorsalis Pedis (R), 2+ Left Dors-Pedis (L), 2+ Radial Pulses (R), 2+ Radial Pulses (L) Gastrointestinal: normal bowel sounds, soft, guarding (voluntary), tenderness (localized to the epigastrium and LUQ) Extremity: No Calf Tenderness, No Pedal Edema Neurologic/Psychiatric: Alert, Oriented x3, Other (patient disgruntled, expre ssing frustration regarding lack of ice chips and fluid and constant monitoring by nurses) Skin: Normal Color, Warm/Dry Results Lab Laboratory Tests 07/30/22 11:52: Magnesium Level 1.8, Amylase Level 71, Lipase 201H 07/30/22 13:14: Blood Gas Puncture Site L RAD, Blood Gas Patient Temperature 37.0, Arterial Blood pH 7.31*L, Arterial Blood Partial Pressure CO2 30L, Arterial Blood Partial Pressure O2 93, Arterial Blood HCO3 15*L, Arterial Blood Total CO2 15.8L, Arterial Blood Oxygen Saturation 98, Arterial Blood Base Excess -10.1L, Vladimir Test YES-POS, Blood Gas Ventilator Setting NO, Blood Gas Inspired Oxygen ROOM AIR 07/31/22 05:16: Lipase 170H, White Blood Count 3.0L, Red Blood Count 3.79L, Hemoglobin 12.1, Hematocrit 35, Mean Corpuscular Volume 93, Mean Corpuscular Hemoglobin 32, Mean Corpuscular Hemoglobin Concent 35, Red Cell Distribution Width 14.3, Platelet Count 190, Mean Platelet Volume 9.9, Immature Granulocyte % (Auto) 0, Neutrophils (%) (Auto) 54, Lymphocytes (%) (Auto) 28, Monocytes (%) (Auto) 12, Eosinophils (%) (Auto) 4, Basophils (%) (Auto) 1, Neutrophils # (Auto) 1.6L, Lymphocytes # (Auto) 0.8L, Monocytes # (Auto) 0.4, Eosinophils # (Auto) 0.1, Basophils # (Auto) 0.0, Immature Granulocyte # (Auto) 0.0, Sodium Level 135, Potassium Level 3.8, Chloride Level 111H, Carbon Dioxide Level 18L, Anion Gap 6, Blood Urea Nitrogen 6L, Creatinine 0.68, Estimat Glomerular Filtration Rate 100, BUN/Creatinine Ratio 9, Glucose Level 97, Calcium Level 8.5, Corrected Calcium 9.1, Total Bilirubin 0.6, Aspartate Amino Transf (AST/SGOT) 27, Alanine Alas otransferase (ALT/SGPT) 33, Alkaline Phosphatase 68, Total Protein 5.9L, Albumin 3.3 Assessment/Plan Assessment/Plan Assessment/Plan 1. Acute pancreatitis on chronic pancreatitis 2. Chest pain - seems to be due to the Potassium supplementation going through IV 3. Right hand numbness - states she has had that since her seizure 4 weeks ago 4. Hx of alcohol abuse 5. Hx of COPD, emphysema 6. Hypokalemia 7. Anticoagulated status on Lovenox Patient should continue NPO status until lipase continues to trend down and her abdominal pain is minimal; if not resolved. Continue administration of IV fluids, electrolytes (potassium replacement), nutrition, and analgesics. Monitor labs and physical exam. LUIS ANTONIO GUERRERO DO 07/31/22 1207: Subjective Time Seen by a Provider: 09:32 Subjective/Events-last exam Pt seen and examined, states she still gets severe pain and cramps when she drinks anything. However, she is also asking for hot tea or broth. Review of Systems General: No Chills HEENT: No Head Aches Pulmonary: No Dyspnea Cardiovascular: Chest Pain (with IV potassium replacement yesterday, resolved at this time) Gastrointestinal: Abdominal Pain; No: Nausea, Vomiting Genitourinary: No Dysuria Objective Exam General Appearance: No Apparent Distress HEENT: PERRL/EOMI Respiratory: Lungs Clear, Normal Breath Sounds, No Accessory Muscle Use, No Respiratory Distress Cardiovascular: Regular Rate, Rhythm Gastrointestinal: normal bowel sounds, soft, guarding (voluntary), tenderness (localized to the epigastrium and LUQ) Extremity: No Calf Tenderness Neurologic/Psychiatric: Alert, Oriented x3 Assessment/Plan Assessment/Plan Assessment/Plan 1. Acute pancreatitis on chronic pancreatitis 2. Chest pain - seems to be due to the Potassium supplementation going through IV 3. Right hand numbness - states she has had that since her seizure 4 weeks ago 4. Hx of alcohol abuse 5. Hx of COPD, emphysema 6. Hypokalemia - resolved today 7. Anticoagulated status on Lovenox Patient should continue NPO status until lipase continues to trend down and her abdominal pain is minimal; if not resolved. I will let her try small sips of hot tea. Continue administration of IV fluids, electrolytes (potassium replacement), nutrition, and analgesics. Monitor labs and physical exam. Supervisory-Addendum Brief Verification & Attestation Participated in pt care: history, MDM, physical Personally performed: exam, history, MDM, supervision of care Care discussed with: Medical Student Procedures: n/a Verification and Attestation of Medical Student E/M Service A medical student performed and documented this service. I then reviewed and verified all information documented by the medical student and made modifications to such information, when appropriate. I personally performed a physical exam, medical decision making and then discussed any differences between the notes and made revisions as necessary to create one note. Luis Antonio Guerrero , 07/31/22 , 12:06 MARLON RAMIREZ Jul 31, 2022 08:44 LUIS ANTONIO GUERRERO DO Jul 31, 2022 12:07
[2022-07-31] MEDS: toPIRamate 25 MG (TOPAMAX) TAB PO SCH (09:10)
[2022-07-31] MEDS: GABAPENTIN 300 MG (NEURONTIN) CAP PO SCH ×3 (09:11→20:33)
[2022-07-31] MEDS: DULoxetine 30 MG (CYMBALTA) CAP PO SCH (09:11)
[2022-07-31] MEDS: PROPRANOLOL 20 MG (INDERAL) TABLET PO SCH (09:11)
[2022-07-31] MEDS: PANTOPRAZOLE 20 MG TABLET (PROTONIX) PO SCH (09:11)
[2022-07-31] MEDS: GABAPENTIN 100 MG (NEURONTIN) CAP PO SCH ×3 (09:11→20:33)
[2022-07-31] MEDS: SODIUM BICARBONATE 650 MG TABLET PO SCH ×3 (09:12→20:33)
[2022-07-31] MEDS: ENOXAPARIN 40 MG/0.4 ML (LOVENOX) SYR SC SCH (09:12)
[2022-07-31 11:36] VITALS: BP 112/54
[2022-07-31 15:30] VITALS: BP 99/59
[2022-07-31] MEDS ORDERED: PANTOPRAZOLE 40 MG (PROTONIX) TAB PO SCH (18:00)
[2022-07-31] MEDS ORDERED: RT-ALBUTEROL SULF 2.5 MG/3 ML PRE-MIX VIAL IH PRN (18:00)
[2022-07-31] MEDS ORDERED: RT-ALBUTEROL/IPRATROPIUM 3 ML (DUONEB) VIAL IH PRN (18:00)
[2022-07-31] MEDS ORDERED: PANTOPRAZOLE 40 MG (PROTONIX) TAB PO ONE (18:30)
[2022-07-31 19:43] VITALS: BP 115/77
[2022-07-31] MEDS: ZOLPIDEM 5 MG (AMBIEN) TAB PO SCH (20:33)
[2022-07-31] MEDS: busPIRone 15 MG (BUSPAR) TABLET PO SCH (20:33)
[2022-07-31 23:36] VITALS: BP 117/72
[2022-08-01 03:31] VITALS: BP 109/65
[2022-08-01] MEDS: PANTOPRAZOLE 40 MG (PROTONIX) TAB PO SCH (05:57)
[2022-08-01 07:22] VITALS: BP 108/61
[2022-08-01] MEDS: NS IV 1000 ML 1,000 ML IV SCH ×2 (07:47→17:31)
[2022-08-01] MEDS: toPIRamate 25 MG (TOPAMAX) TAB PO SCH (07:47)
[2022-08-01] MEDS: SODIUM BICARBONATE 650 MG TABLET PO SCH ×3 (07:47→20:34)
[2022-08-01] MEDS: PROPRANOLOL 20 MG (INDERAL) TABLET PO SCH (07:48)
[2022-08-01] MEDS: DULoxetine 30 MG (CYMBALTA) CAP PO SCH (07:48)
[2022-08-01] MEDS: busPIRone 15 MG (BUSPAR) TABLET PO SCH ×3 (07:48→20:34)
[2022-08-01] MEDS: GABAPENTIN 100 MG (NEURONTIN) CAP PO SCH ×3 (07:48→20:34)
[2022-08-01] MEDS: GABAPENTIN 300 MG (NEURONTIN) CAP PO SCH ×3 (07:48→20:34)
[2022-08-01] MEDS: ENOXAPARIN 40 MG/0.4 ML (LOVENOX) SYR SC SCH (07:49)
--- NOTE | 2022-08-01 07:57 | Progress Note - Hospitalist ---
Subjective HPI/CC On Admission Date Seen by Provider: Aug 01, 2022 Time Seen by Provider: 11:00 Subjective/Events-last exam Patient doing a lot better Patient is hungry Will ambulate DC telemetry sitter Pain is controlled Review of Systems General: Fatigue, Malaise Objective Exam Vital Signs Vital Signs Date Time Temp Pulse Resp B/P (MAP) Pulse Ox O2 Delivery O2 Flow Rate FiO2 08/01/22 12:02 36.5 55 18 116/58 (77) 97 Room Air 08/01/22 08:00 3.00 Capillary Refill : General Appearance: No Apparent Distress, WD/WN, Chronically ill Respiratory: Lungs Clear, Normal Breath Sounds Cardiovascular: Regular Rate, Rhythm Neurologic/Psychiatric: Alert, Oriented x3, No Motor/Sensory Deficits, Normal Mood/Affect Results/Procedures Lab Laboratory Tests 08/01/22 07:40 Patient resulted labs reviewed. Assessment/Plan Assessment and Plan Assess & Plan/Chief Complaint Pancreatitis - likely secondary to alcohol use disorder - IVF - liquid diet since - Morphine 2mg Q2h PRN - Zofran - Protonix Hypokalemia (07/29) - 3.4 today improved from 2.8 on 07/29 - KCl since 07/29 Hyponatremia (07/29) - 134 today improved from 129 on 07/29 Metabolic Acidosis (07/29) - carbon dioxide 15L today up from 14L on 07/29 - ABG ordered Hyperlipidemia (chronic) - plans to obtain lipid panel - plans to resume atorvostatin once regular diet resumed COPD (chronic) - 2L of supplemnetal oxygen - albuterol 3 mL - history of emphysema 3L requiring 2L of O2 at home BERTIN FORTE DO Aug 01, 2022 07:57
[2022-08-01 08:07] LABS: BASOPHILS % (AUTO) 1 % (0-10); EOSINOPHILS # (AUTO) 0.2 10^3/uL (0.0-0.3); EOSINOPHILS % (AUTO) 5 % (0-10); HEMATOCRIT 36 % (35-52); HEMOGLOBIN 12.2 g/dL (11.5-16.0); LYMPHOCYTES # (AUTO) 1.1 10^3/uL (1.0-4.0); LYMPHOCYTES % (AUTO) 30 % (12-44); MEAN CORPUSCULAR HEMOGLOBIN 32 pg (25-34); MEAN CORPUSCULAR HGB CONC 34 g/dL (32-36); MEAN CORPUSCULAR VOLUME 93 fL (80-99); MEAN PLATELET VOLUME 9.6 fL (9.0-12.2); MONOCYTES # (AUTO) 0.3 10^3/uL (0.0-1.0); MONOCYTES % (AUTO) 8 % (0-12); NEUTROPHILS % (AUTO) 57 % (42-75); PLATELET COUNT 259 10^3/uL (130-400); WHITE BLOOD COUNT 3.6 10^3/uL (4.3-11.0)
[2022-08-01 08:12] LABS: ALBUMIN 3.6 GM/DL (3.2-4.5)
[2022-08-01 08:13] LABS: POTASSIUM 3.8 MMOL/L (3.6-5.0)
[2022-08-01 08:14] LABS: CALCIUM 8.7 MG/DL (8.5-10.1)
[2022-08-01 08:15] LABS: TOTAL PROTEIN 6.3 GM/DL (6.4-8.2)
[2022-08-01 08:17] LABS: BILIRUBIN,TOTAL 0.5 MG/DL (0.1-1.0)
[2022-08-01 08:19] LABS: CREATININE SERUM 0.75 MG/DL (0.60-1.30)
[2022-08-01 12:02] VITALS: BP 116/58
[2022-08-01] MEDS: ACETAMINOPHEN 325 MG TABLET PO PRN (12:34)
--- NOTE | 2022-08-01 13:53 | Progress Note - Surgery ---
MARLON RAMIREZ 08/01/22 1353: Subjective Date Seen by a Provider: Aug 01, 2022 Time Seen by a Provider: 11:20 Subjective/Events-last exam The patient is seated in bed at the time of evaluation. She states her abdominal pain has resolved completely and is currently 0/10. She states she was able to t sinan tea multiple times yesterday with no worsening of her pain, and no nausea or vomiting. The patient denies any other complaints and is in a belligerent mood, only begrudgingly cooperative with history and exam. Review of Systems Pulmonary: Dyspnea (chronic) Cardiovascular: No: Chest Pain Gastrointestinal: No: Nausea, Vomiting, Abdominal Pain Genitourinary: No Retention Objective Exam Vital Signs Date Time Temp Pulse Resp B/P (MAP) Pulse Ox O2 Delivery O2 Flow Rate FiO2 08/01/22 12:02 36.5 55 18 116/58 (77) 97 Room Air 08/01/22 08:00 97 Room Air 3.00 08/01/22 07:22 36.4 66 18 108/61 (77) 97 Room Air 08/01/22 03:31 35.9 65 16 109/65 (80) 97 Nasal Cannula 3.00 07/31/22 23:36 35.7 97 16 117/72 (87) 97 Room Air 07/31/22 21:18 96 Room Air 07/31/22 20:00 Room Air 07/31/22 19:43 37.0 60 20 115/77 (90) 99 Room Air 07/31/22 15:30 36.9 55 18 99/59 (72) 98 Room Air I & O 08/01/22 07:00 Intake Total 590 ml Output Total 3700 ml Balance -3110 ml Capillary Refill : General Appearance: No Apparent Distress, Chronically ill HEENT: PERRL/EOMI Neck: Non Tender Respiratory: Lungs Clear, Decreased Breath Sounds Cardiovascular: Regular Rate, Rhythm, No Murmur Peripheral Pulses: 2+ Dorsalis Pedis (R), 2+ Left Dors-Pedis (L), 2+ Radial Pulses (R), 2+ Radial Pulses (L) Gastrointestinal: normal bowel sounds, non tender, soft Extremity: No Pedal Edema Neurologic/Psychiatric: Alert, Oriented x3 Skin: Normal Color, Warm/Dry Results Lab Laboratory Tests 08/01/22 07:40: White Blood Count 3.6L, Red Blood Count 3.83, Hemoglobin 12.2, Hematocrit 36, Mean Corpuscular Volume 93, Mean Corpuscular Hemoglobin 32, Mean Corpuscular Hemoglobin Concent 34, Red Cell Distribution Width 14.3, Platelet Count 259, Mean Platelet Volume 9.6, Immature Granulocyte % (Auto) 0, Neutrophils (%) (Auto) 57, Lymphocytes (%) (Auto) 30, Monocytes (%) (Auto) 8, Eosinophils (%) (Auto) 5, Basophils (%) (Auto) 1, Neutrophils # (Auto) 2.0, Lymphocytes # (Auto) 1.1, Monocytes # (Auto) 0.3, Eosinophils # (Auto) 0.2, Basophils # (Auto) 0.0, Immature Granulocyte # (Auto) 0.0, Sodium Level 137, Potassium Level 3.8, Chloride Level 111H, Carbon Dioxide Level 19L, Anion Gap 7, Blood Urea Nitrogen 4L, Creatinine 0.75, Estimat Glomerular Filtration Rate 92, BUN/Creatinine Ratio 5, Glucose Level 102, Calcium Level 8.7, Corrected Calcium 9.0, Total Bilirubin 0.5, Aspartate Amino Transf (AST/SGOT) 26, Alanine Aminotransferase (ALT/SGPT) 32, Alkaline Phosphatase 72, Total Protein 6.3L, Albumin 3.6, Lipase 124H Assessment/Plan Assessment/Plan Assessment/Plan 1. Acute pancreatitis on chronic pancreatitis 2. Chest pain - seems to be due to the Potassium supplementation going through IV 3. Right hand numbness - states she has had that since her seizure 4 weeks ago 4. Hx of alcohol abuse 5. Hx of COPD, emphysema 6. Hypokalemia - resolved today 7. Anticoagulated status on Lovenox Patient has no abdominal pain or tenderness at this time, and no worsening of symptoms with ice chips or tea. Lipase continues to trend down, from 201 on arrival to 170 to 124 today. Patient may advance to clears at this time, consider advancing diet again if no abdominal pain. Continue administration of IV fluids, electrolytes (potassium replacement), nutrition, and analgesics. Monitor labs and physical exam. LUIS ANTONIO GUERRERO DO 08/01/22 1509: Subjective Time Seen by a Provider: 13:20 Subjective/Events-last exam Pt seen and examined, states she has no pain with eating and wants to eat. Review of Systems Pulmonary: Dyspnea (chronic) Cardiovascular: No: Chest Pain Gastrointestinal: No: Nausea, Vomiting, Abdominal Pain Objective Exam General Appearance: No Apparent Distress, Chronically ill HEENT: PERRL/EOMI Respiratory: No Accessory Muscle Use, No Respiratory Distress, Decreased Breath Sounds Cardiovascular: Regular Rate, Rhythm Gastrointestinal: normal bowel sounds, non tender, soft Extremity: No Pedal Edema Neurologic/Psychiatric: Alert, Oriented x3 Assessment/Plan Assessment/Plan Assessment/Plan 1. Acute pancreatitis on chronic pancreatitis ??resolved 2. Chest pain - seems to be due to the Potassium supplementation going through IV 3. Right hand numbness - states she has had that since her seizure 4 weeks ago 4. Hx of alcohol abuse 5. Hx of COPD, emphysema 6. Hypokalemia - resolved today 7. Anticoagulated status on Lovenox Patient has no abdominal pain or tenderness at this time, and no worsening of symptoms with ice chips or tea. Lipase continues to trend down, from 201 on arrival to 170 to 124 today. Patient may advance to clears at this time, consider advancing diet again if no abdominal pain. Continue administration of IV fluids, electrolytes (potassium replacement), nutrition, and analgesics. Monitor labs and physical exam. Supervisory-Addendum Brief Verification & Attestation Participated in pt care: history, MDM, physical Personally performed: exam, history, MDM, supervision of care Care discussed with: Medical Student Procedures: n/a Verification and Attestation of Medical Student E/M Service A medical student performed and documented this service. I then reviewed and verified all information documented by the medical student and made modifications to such information, when appropriate. I personally performed a physical exam, medical decision making and then discussed any differences between the notes and made revisions as necessary to create one note. Luis Antonio Guerrero , 08/01/22 , 15:09 MARLON RAMIREZ Aug 01, 2022 13:53 LUIS ANTONIO GUERRERO DO Aug 01, 2022 15:09
[2022-08-01 16:19] VITALS: BP 104/51
[2022-08-01 19:53] VITALS: BP 107/58
[2022-08-01] MEDS: ZOLPIDEM 5 MG (AMBIEN) TAB PO SCH (20:34)
[2022-08-02 00:06] VITALS: BP 99/61
[2022-08-02] MEDS: ACETAMINOPHEN 325 MG TABLET PO PRN (02:16)
[2022-08-02] MEDS: NS IV 1000 ML 1,000 ML IV SCH (03:18)
[2022-08-02 03:49] VITALS: BP 103/58
[2022-08-02] MEDS: PANTOPRAZOLE 40 MG (PROTONIX) TAB PO SCH (05:41)
[2022-08-02 06:12] LABS: BASOPHILS % (AUTO) 1 % (0-10); EOSINOPHILS # (AUTO) 0.1 10^3/uL (0.0-0.3); EOSINOPHILS % (AUTO) 4 % (0-10); HEMATOCRIT 35 % (35-52); HEMOGLOBIN 11.4 g/dL (11.5-16.0); LYMPHOCYTES # (AUTO) 0.9 10^3/uL (1.0-4.0); LYMPHOCYTES % (AUTO) 32 % (12-44); MEAN CORPUSCULAR HEMOGLOBIN 31 pg (25-34); MEAN CORPUSCULAR HGB CONC 33 g/dL (32-36); MEAN CORPUSCULAR VOLUME 95 fL (80-99); MEAN PLATELET VOLUME 9.9 fL (9.0-12.2); MONOCYTES # (AUTO) 0.3 10^3/uL (0.0-1.0); MONOCYTES % (AUTO) 11 % (0-12); NEUTROPHILS # (AUTO) 1.5 10^3/uL (1.8-7.8); NEUTROPHILS % (AUTO) 51 % (42-75); PLATELET COUNT 262 10^3/uL (130-400); WHITE BLOOD COUNT 2.9 10^3/uL (4.3-11.0)
[2022-08-02 06:38] LABS: ALBUMIN 3.1 GM/DL (3.2-4.5); BILIRUBIN,TOTAL 0.3 MG/DL (0.1-1.0); CALCIUM 8.4 MG/DL (8.5-10.1); CREATININE SERUM 0.66 MG/DL (0.60-1.30); POTASSIUM 3.6 MMOL/L (3.6-5.0); TOTAL PROTEIN 5.5 GM/DL (6.4-8.2)
--- NOTE | 2022-08-02 06:56 | Progress Note - Surgery ---
SULTANA MONTANO Susan 08/02/22 0656: Subjective Date Seen by a Provider: Aug 02, 2022 Time Seen by a Provider: 06:40 Subjective/Events-last exam Ms. Peace is a 61-year-old female being followed for pancreatitis. This morning she denies abdominal pain. She was on a clear liquid diet yesterday and tolera melissa it well. She denied nausea, vomiting, or any increased abdominal pain with oral intake. Her oral intake was 2500 mL. Patient says she is hungry and would like to eat. She also mentioned she normally has breathing treatments at home that she receives twice daily d/t her COPD but she has not received them here. No other concerns or complaints at this time. Review of Systems General: Chills; No Fatigue HEENT: Head Aches; No Visual Changes Pulmonary: No Dyspnea; Cough Cardiovascular: No: Chest Pain, Palpitations Gastrointestinal: No: Nausea, Vomiting, Abdominal Pain Neurological: No: Weakness, Confusion Objective Exam Vital Signs Date Time Temp Pulse Resp B/P (MAP) Pulse Ox O2 Delivery O2 Flow Rate FiO2 08/02/22 03:49 36.4 66 16 103/58 (73) 98 Nasal Cannula 1.50 08/02/22 00:06 36.3 61 16 99/61 (74) 95 Nasal Cannula 1.50 08/01/22 20:00 Room Air 08/01/22 19:53 36.2 64 18 107/58 (74) 100 Room Air 08/01/22 18:54 98 Room Air 08/01/22 16:19 36.6 60 18 104/51 (68) 99 Room Air 08/01/22 12:02 36.5 55 18 116/58 (77) 97 Room Air 08/01/22 08:00 97 Room Air 3.00 08/01/22 07:22 36.4 66 18 108/61 (77) 97 Room Air I & O 08/02/22 07:00 Intake Total 3150 ml Output Total 4400 ml Balance -1250 ml Capillary Refill : General Appearance: No Apparent Distress, Chronically ill, Thin HEENT: PERRL/EOMI; No Scleral Icterus (L), No Scleral Icterus (R) Neck: Non Tender, Supple; No Lymphadenopathy (L), No Lymphadenopathy (R) Respiratory: Chest Non Tender, No Accessory Muscle Use, No Respiratory Distress, Decreased Breath Sounds (Distant breath sounds in all four lobes) Cardiovascular: Regular Rate, Rhythm, No Edema, No Murmur, Normal Peripheral Pu lses Peripheral Pulses: 2+ Radial Pulses (R), 2+ Radial Pulses (L) Gastrointestinal: non tender, soft; No distended, No guarding, No rebound, No tenderness Extremity: Non Tender, No Calf Tenderness, No Pedal Edema Neurologic/Psychiatric: Alert, Oriented x3, Normal Mood/Affect Skin: Normal Color, Warm/Dry Lymphatic: No Adenopathy (Head and neck) Results Lab Laboratory Tests 08/01/22 07:40: White Blood Count 3.6L, Red Blood Count 3.83, Hemoglobin 12.2, Hematocrit 36, Mean Corpuscular Volume 93, Mean Corpuscular Hemoglobin 32, Mean Corpuscular Hemoglobin Concent 34, Red Cell Distribution Width 14.3, Platelet Count 259, Mean Platelet Volume 9.6, Immature Granulocyte % (Auto) 0, Neutrophils (%) (Auto) 57, Lymphocytes (%) (Auto) 30, Monocytes (%) (Auto) 8, Eosinophils (%) (Auto) 5, Basophils (%) (Auto) 1, Neutrophils # (Auto) 2.0, Lymphocytes # (Auto) 1.1, Monocytes # (Auto) 0.3, Eosinophils # (Auto) 0.2, Basophils # (Auto) 0.0, Immature Granulocyte # (Auto) 0.0, Sodium Level 137, Potassium Level 3.8, Chloride Level 111H, Carbon Dioxide Level 19L, Anion Gap 7, Blood Urea Nitrogen 4L, Creatinine 0.75, Estimat Glomerular Filtration Rate 92, BUN/Creatinine Ratio 5, Glucose Level 102, Calcium Level 8.7, Corrected Calcium 9.0, Total Bilirubin 0.5, Aspartate Amino Transf (AST/SGOT) 26, Alanine Aminotransferase (ALT/SGPT) 32, Alkaline Phosphatase 72, Total Protein 6.3L, Albumin 3.6, Lipase 124H 08/02/22 05:28: White Blood Count 2.9L, Red Blood Count 3.66L, Hemoglobin 11.4L, Hematocrit 35, Mean Corpuscular Volume 95, Mean Corpuscular Hemoglobin 31, Mean Corpuscular Hemoglobin Concent 33, Red Cell Distribution Width 14.6H, Platelet Count 262, Mean Platelet Volume 9.9, Immature Granulocyte % (Auto) 0, Neutrophils (%) (Auto) 51, Lymphocytes (%) (Auto) 32, Monocytes (%) (Auto) 11, Eosinophils (%) (Auto) 4, Basophils (%) (Auto) 1, Neutrophils # (Auto) 1.5L, Lymphocytes # (Auto) 0.9L, Monocytes # (Auto) 0.3, Eosinophils # (Auto) 0.1, Basophils # (Auto) 0.0, Immature Granulocyte # (Auto) 0.0, Sodium Level 141, Potassium Level 3.6, Chloride Level 115H, Carbon Dioxide Level 19L, Anion Gap 7, Blood Urea Nitrogen 3L, Creatinine 0.66, Estimat Glomerular Filtration Rate 101, BUN/Creatinine Ratio 5, Glucose Level 89, Calcium Level 8.4L, Corrected Calcium 9.1, Total Bilirubin 0.3, Aspartate Amino Transf (AST/SGOT) 18, Alanine Aminotransferase (ALT/SGPT) 27, Alkaline Phosphatase 61, Total Protein 5.5L, Albumin 3.1L, Lipase 85H Assessment/Plan Assessment/Plan Assessment/Plan Acute on chronic pancreatitis Lipase trending down, minimally elevated today at 85 COPD/emphysema Hypoalbuminemia Marginally low at 3.1 Likely d/t low protein intake over last several days Leukopenia 2.9 this morning, 3.6 yesterday Chest pain -- resolved Hypokalemia -- resolved Continue IVF and pain control as needed Tolerating clears well, advance diet to soft diet today, if that goes well c onsider discharge home tomorrow Add Ensure/Boost shakes d/t hypoalbuminemia Patient has h/o COPD and receives breathing treatments at home, has not received them yet, add breathing treatments to regimen Electrolytes repleted at this time KEMAR GAVIN DO 08/02/22 1228: Subjective Time Seen by a Provider: 12:21 Subjective/Events-last exam Pt seen and examined, she is dressed and ready to go. Denies abdominal pain and tolerated soft diet. Review of Systems HEENT: Head Aches; No Visual Changes Pulmonary: No Dyspnea; Cough Cardiovascular: No: Chest Pain, Palpitations Gastrointestinal: No: Nausea, Vomiting, Abdominal Pain Objective Exam General Appearance: No Apparent Distress, Chronically ill HEENT: PERRL/EOMI; No Scleral Icterus (L), No Scleral Icterus (R) Respiratory: Chest Non Tender, No Accessory Muscle Use, No Respiratory Distress, Decreased Breath Sounds (Distant breath sounds in all four lobes) Cardiovascular: Regular Rate, Rhythm, No Edema, No Murmur Gastrointestinal: non tender, soft; No distended, No guarding, No rebound, No tenderness Assessment/Plan Assessment/Plan Assessment/Plan Acute on chronic pancreatitis - basically resolved, no pain and lipase minimally elevated today at 85 COPD/emphysema Hypoalbuminemia Marginally low at 3.1 Likely d/t low protein intake over last several days Leukopenia 2.9 this morning, 3.6 yesterday Chest pain -- resolved Hypokalemia -- resolved Pt tolerated diet and no pain, can go home from surgery standpoint. Supervisory-Addendum Brief Verification & Attestation Participated in pt care: history, MDM, physical Personally performed: exam, history, MDM, supervision of care Care discussed with: Medical Student Procedures: n/a Verification and Attestation of Medical Student E/M Service A medical student performed and documented this service. I then reviewed and verified all information documented by the medical student and made modifications to such information, when appropriate. I personally performed a physical exam, medical decision making and then discussed any differences between the notes and made revisions as necessary to create one note. Kemar Gavin , 08/02/22 , 12:28 SULTANA MONTANO Aug 02, 2022 06:56 KEMAR GAVIN DO Aug 02, 2022 12:28
[2022-08-02 07:54] VITALS: BP 108/69
[2022-08-02] MEDS: ENOXAPARIN 40 MG/0.4 ML (LOVENOX) SYR SC SCH (08:42)
[2022-08-02] MEDS: GABAPENTIN 300 MG (NEURONTIN) CAP PO SCH (08:42)
[2022-08-02] MEDS: GABAPENTIN 100 MG (NEURONTIN) CAP PO SCH (08:42)
[2022-08-02] MEDS: SODIUM BICARBONATE 650 MG TABLET PO SCH (08:43)
[2022-08-02] MEDS: DULoxetine 30 MG (CYMBALTA) CAP PO SCH (08:43)
[2022-08-02] MEDS: toPIRamate 25 MG (TOPAMAX) TAB PO SCH (08:43)
[2022-08-02] MEDS: PROPRANOLOL 20 MG (INDERAL) TABLET PO SCH (08:43)
[2022-08-02] MEDS: busPIRone 15 MG (BUSPAR) TABLET PO SCH (08:43)
[2022-08-02] MEDS ORDERED: MULT-974 PO (10:25)
[2022-08-02] MEDS ORDERED: OXC5T PO (10:25)
--- NOTE | 2022-08-02 10:25 | Discharge Summary ---
Discharge Summary Hospital Course Problems/Dx: (1) Pancreatitis Status: Acute Qualifiers: (2) Hyponatremia Status: Acute (3) Hypokalemia Status: Acute (4) COPD (chronic obstructive pulmonary disease) Status: Chronic Qualifiers: (5) HLD (hyperlipidemia) Status: Chronic Qualifiers: Qualified Codes: E78.5 - Hyperlipidemia, unspecified Hospital Course Date of Admission: Jul 28, 2022 at 21:41 Admission Diagnosis : Family Physician/Provider: Lane Brooks DO Date of Discharge: 08/02/22 Discharge Diagnosis: [ ] Hospital Course: 61 yo F with a history of pancreatitis, alcohol use disorder, HLD, COPD and cardiac catheriziation with stent placement presented to [facility] ED on 07/28 for sharp epigastric pain x2 days. Per ER notes, she admitted to consuming 3-4 shots of liquor the night before her pain began but denied alcohol use thereafter. She also reported one previous hospitalization for pancreatitis in 09/2021. ER work-up revealed findings consistent with acute pancreatitis and the patient was admitted to [facility] later that day; IVF, NPO, morphine 2mg Q2h PRN, Zofran and Protonix were initiated and home levels of supplemental oxygen were intiated. On 07/29, hypokalemia (2.8), hyponatremia (129), and hypertension (171/81) were noted; KCl was started on 07/29 and propanolol was started on 07/30. On 07/29 she was permitted to start eating ice chips and on 07/30 she was started on clear fluids. On 07/30 she reported an overall decrease in abdominal but pain but complained of significant, sharp epigastric pain associated with fluid and ice consumption; she additionally admitted to "squeezing" sternal and right upper chest pain associated with right arm numbness. By 07/31, her chest/pain, hyponatremia, hypokalemia, and hypertension had resolved; leukopenia (2.9) was noted. On 08/01, she denied all abdominal pain (including pain with eating/drinking) and an reported an increasing appetite and a desire to transition to solid foods. On 08/02, a soft diet was initiated with plans to discharge the patient this day pending tolerance of diet. ESAU GRANDE Labs and Pending Lab Test: Laboratory Tests 08/02/22 05:28: White Blood Count 2.9L, Red Blood Count 3.66L, Hemoglobin 11.4L, Hematocrit 35, Mean Corpuscular Volume 95, Mean Corpuscular Hemoglobin 31, Mean Corpuscular Hemoglobin Concent 33, Red Cell Distribution Width 14.6H, Platelet Count 262, Mean Platelet Volume 9.9, Immature Granulocyte % (Auto) 0, Neutrophils (%) (Auto) 51, Lymphocytes (%) (Auto) 32, Monocytes (%) (Auto) 11, Eosinophils (%) (Auto) 4, Basophils (%) (Auto) 1, Neutrophils # (Auto) 1.5L, Lymphocytes # (Auto) 0.9L, Monocytes # (Auto) 0.3, Eosinophils # (Auto) 0.1, Basophils # (Auto) 0.0, Immature Granulocyte # (Auto) 0.0, Sodium Level 141, Potassium Level 3.6, Chloride Level 115H, Carbon Dioxide Level 19L, Anion Gap 7, Blood Urea Nitrogen 3L, Creatinine 0.66, Estimat Glomerular Filtration Rate 101, BUN/Creatinine Ratio 5, Glucose Level 89, Calcium Level 8.4L, Corrected Calcium 9.1, Total Bilirubin 0.3, Aspartate Amino Transf (AST/SGOT) 18, Alanine Aminotransferase (ALT/SGPT) 27, Alkaline Phosphatase 61, Total Protein 5.5L, Albumin 3.1L, Lipase 85H Home Meds Active Multi-Vitamin Daily (Multivitamin) 1 Each Tablet 1 Each PO DAILY Reported Topiramate 50 Mg Tablet 50 Mg PO DAILY Buspirone HCl 15 Mg Tablet 15 Mg PO TID Propranolol HCl 80 Mg Tablet 80 Mg PO DAILY Atorvastatin Calcium 40 Mg Tablet 40 Mg PO DAILY Gabapentin 100 Mg Capsule 100 Mg PO TID TAKES 100MG +300MG TO EQUAL 400MG Iprat-Albut 0.5-3(2.5) mg/3 ml (Ipratropium/Albuterol Sulfate) 0.5 Mg-3 Mg (2.5 Mg Base)/3 Ml Ampul.neb 3 Ml NEB Q6H PRN Sumatriptan Succinate 50 Mg Tablet 50 Mg PO UD PRN MAY REPEAT 1 DOSE AFTER 2 HOURS IF SYMPTOMS HAVE NOT IMPROVED Multi-Vitamin Daily (Multivitamin) 1 Each Tablet 1 Each PO DAILY Ventolin Hfa (Albuterol Sulfate) 90 Mcg Hfa.aer.ad 2 Puff IH Q4H PRN Neurontin (Gabapentin) 300 Mg Capsule 300 Mg PO TID TAKES 100MG +300MG TO EQUAL 400MG Methocarbamol 750 Mg Tablet 750 Mg PO TID PRN Stiolto Respimat Inhal [place] (Tiotropium Br/Olodaterol HCl) 2.5 Mcg-2.5 Mcg/Actuation Mist.inhal 2 Puff INH DAILY Ibuprofen 800 Mg Tablet 800 Mg PO TID PRN Duloxetine HCl 60 Mg Capsule.dr 60 Mg PO DAILY Omeprazole 20 Mg Capsule.dr 20 Mg PO DAILY Assessment/Pt Instructions PCP 1 week Discharge Planning: <30 minutes discharge planning Discharge Instructions Discharge Diet: Soft Diet Discharge Physical Examination Vital Signs Vital Signs Date Time Temp Pulse Resp B/P (MAP) Pulse Ox O2 Delivery O2 Flow Rate FiO2 08/02/22 07:54 36.8 59 18 108/69 (82) 98 Room Air 08/02/22 03:49 1.50 General Appearance: No Apparent Distress, WD/WN, Chronically ill Allergies: Coded Allergies: Sulfa (Sulfonamide Antibiotics) (Verified Allergy, Unknown, 09/17/21) codeine (Verified Allergy, Unknown, 09/17/21) prednisone (Verified Allergy, Unknown, 09/17/21) tramadol (Verified Allergy, Unknown, 09/17/21) Discharge Summary Date of Admission Jul 28, 2022 at 21:41 Date of Discharge Discharge Date: Aug 02, 2022 Discharge Diagnosis Pancreatitis - likely secondary to alcohol use disorder - IVF - liquid diet since - Morphine 2mg Q2h PRN - Zofran - Protonix Hypokalemia (07/29) - 3.4 today improved from 2.8 on 07/29 - KCl since 07/29 Hyponatremia (07/29) - 134 today improved from 129 on 07/29 Metabolic Acidosis (07/29) - carbon dioxide 15L today up from 14L on 07/29 - ABG ordered Hyperlipidemia (chronic) - plans to obtain lipid panel - plans to resume atorvostatin once regular diet resumed COPD (chronic) - 2L of supplemnetal oxygen - albuterol 3 mL - history of emphysema 3L requiring 2L of O2 at home (1) Hyponatremia Status: Acute Assessment & Plan: 07/29: -Na 129, likely secondary to hypovolemia. Monitor Na with AM BMP (2) Hypokalemia Status: Acute Assessment & Plan: 07/29: -K 2.8. Replace with 40meq with KCl PO or IV with fluids -Monitor with AM BMP (3) Pancreatitis Status: Acute Assessment & Plan: 07/29: -Pancreatitis likely secondary to alcohol use disorder. -NPO -> advance to clear liquids as tolerated -Pain management -> taper down as tolerated. Morphine 2mg Q2H PRN IVP -AM Mg and Phosphorus -Elevated lipase at [facility] -Previous hospitalizations for pancreatitis secondary to alcohol use -Patient has a PMHx of HLD - lipid panel -IVF - NaCl -Zofran 8mg IVP Q6H PRN for nausea -Protonix 20mg IV qd Qualifiers: (4) COPD (chronic obstructive pulmonary disease) Status: Chronic Assessment & Plan: 07/29: -PMHx of emphysema -Resume albuterol 3ml INH PRN Qualifiers: (5) HLD (hyperlipidemia) Status: Chronic Assessment & Plan: 07/29: -PMHx of HLD -AM lipid panel to evaluate if potential etiology of pancreatitis -Resume atorvastatin 20mg PO qd once tolerating regular diet Qualifiers: Qualified Codes: E78.5 - Hyperlipidemia, unspecified BERTIN FORTE DO Aug 02, 2022 10:25
--- NOTE | 2022-08-02 11:17 | Progress Note ---
ESAU GRANDE 08/02/22 1117: Progress Note 61 yo F with a history of pancreatitis, alcohol use disorder, HLD, COPD and cardiac catheriziation with stent placement presented to [facility] ED on 07/28 for sharp epigastric pain x2 days. Per ER notes, she admitted to consuming 3-4 shots of liquor the night before her pain began but denied alcohol use thereafter. She also reported one previous hospitalization for pancreatitis in 09/2021. ER work-up revealed findings consistent with acute pancreatitis and the patient was admitted to [facility] later that day; IVF, NPO, morphine 2mg Q2h PRN, Zofran and Protonix were initiated and home levels of supplemental oxygen were intiated. On 07/29, hypokalemia (2.8), hyponatremia (129), and hypertension (171/81) were noted; KCl was started on 07/29 and propanolol was started on 07/30. On 07/29 she was permitted to start eating ice chips and on 07/30 she was started on clear fluids. On 07/30 she reported an overall decrease in abdominal but pain but complained of significant, sharp epigastric pain associated with fluid and ice consumption; she additionally admitted to "squeezing" sternal and right upper chest pain associated with right arm numbness. By 07/31, her chest/pain, hyponatremia, hypokalemia, and hypertension had resolved; leukopenia (2.9) was noted. On 08/01, she denied all abdominal pain (including pain with eating/drinking) and an reported an increasing appetite and a desire to transition to solid foods. On 08/02, a soft diet was initiated with plans to discharge the patient this day pending tolerance of diet. LEANDRA FORTE DO 08/03/22 0504: Supervisory-Addendum Brief Verification & Attestation Participated in pt care: history, MDM, physical Personally performed: exam, history, MDM, supervision of care Care discussed with: Medical Student Procedures: n/a Results interpretation: Verified all documentation Verification and Attestation of Medical Student E/M Service A medical student performed and documented this service in my presence. I reviewed and verified all information documented by the medical student and made modifications to such information, when appropriate. I personally performed the physical exam and medical decision making. Leandra Forte, Aug 03, 2022,05:03 ESAU GRANDE Aug 02, 2022 11:17 LEANDRA FORTE DO Aug 03, 2022 05:04
[2022-08-02 12:00] VITALS: BP 121/58
[2022-08-02] MEDS ORDERED: RT-IPRATROPIUM (ATROVENT) 0.5MG/2.5ML AMP IH PRN (13:15)
[2022-08-02] MEDS ORDERED: RT-ALBUTEROL SULF 2.5 MG/3 ML PRE-MIX VIAL IH PRN (13:15)
== END 2022-08-02 12:30 | disposition home or self-care (01) | DRG 439 ==
LOC: 4TH 21:41 → UNDODISIN 07-30 15:00
PROVIDERS: ADMIT Family Medicine; ATTEND Internal Medicine
DX: K85.20 Alcohol induced acute pancreatitis without necrosis or infection (principal); E87.1 Hypo-osmolality and hyponatremia; F10.188 Alcohol abuse with other alcohol-induced disorder; E87.20 Acidosis, unspecified; F17.210 Nicotine dependence, cigarettes, uncomplicated; J43.9 Emphysema, unspecified; I10 Essential (primary) hypertension; E78.00 Pure hypercholesterolemia, unspecified; F41.9 Anxiety disorder, unspecified; F32.A Depression, unspecified; E87.6 Hypokalemia; G43.909 Migraine, unspecified, not intractable, without status migrainosus; G62.9 Polyneuropathy, unspecified; K86.0 Alcohol-induced chronic pancreatitis; E88.09 Other disorders of plasma-protein metabolism, not elsewhere classified; D72.819 Decreased white blood cell count, unspecified; R07.9 Chest pain, unspecified; Z95.5 Presence of coronary angioplasty implant and graft; Z87.19 Personal history of other diseases of the digestive system; Z79.899 Other long term (current) drug therapy; Z28.310 Unvaccinated for COVID-19
CPT/HCPCS: 36415; 80053; 82150; 82805; 83690; 83735; 84100; 85025